=== PATIENT | male | born 1965 | race Caucasian/White ===

== ENCOUNTER 2021-10-06 10:14 | Inpatient (IN) ==
[2021-10-06] MEDS ORDERED: ONDANSETRON INJ 2 MG/ML 2 ML VIAL IV STA (10:40)
[2021-10-06] MEDS ORDERED: SODIUM CHLORIDE 0.9% 1000ML 1,000 ML IV ONE ×2 (10:40→11:45)
--- NOTE | 2021-10-06 10:51 | Emergency Department Note ---
Impression & Plan Esophageal mass, Hypokalemia, Acute dehydration, Vomiting, Abnormal weight loss, Tobacco use ED Provider Note NAME: JERRY BENAVIDEZ AGE: 56 SEX: M : 1965 ARRIVES VIA: Walk-In INFORMANT: Patient, ED PROVIDER(S): Tobias Purcell DO CHIEF COMPLAINT: Weight loss and weakness HPI: The patient is a 56-year-old male who presented to the emergency department for an evaluation of generalized weakness. The patient states over the last 2 months he has been noticing significant weight loss which includes over 100 pounds. The patient states he has not been trying to lose weight. He has noticed that when he tries to eat he does have nausea vomiting. He has been trying to eat small meals more frequently and it is helped with his nausea but he continues to lose weight. He denies having any lower extremity swelling or p ain. He denies having any black or bloody bowel moods. He denies having any abdominal pain at this time. He states he does have a long tobacco history and has noticed a cough but denies having any hemoptysis. He denies having any fever. He does not have a family doctor and has not seen a primary physician in many years. ROS: See above HPI for pertinent positives & negatives. A total of 10 systems reviewed and were otherwise negative. PAST MEDICAL HISTORY: See Below PAST SURGICAL HISTORY: See Below FAMILY HISTORY: See Below SOCIAL HISTORY: See Below HOME MEDICATIONS: See Below ALLERGIES: See Below VITALS: See Below PHYSICAL EXAMINATION: GENERAL: The patient is awake and alert. He is very frail appearing and appears cachectic. EYES: The conjunctivae are clear. The pupils are round and reactive. EARS, NOSE, MOUTH AND THROAT: The nose is without any evidence of any deformity. Mucous membranes are dry. There is thrush noted in his oropharynx. Dentition is poor. NECK: The neck is nontender and supple. RESPIRATORY: Diminished breath sounds are noted bilaterally with wheezing in the left upper lung field. There is diminished breath sounds at the right base as well. CARDIOVASCULAR: Regular rate and rhythm noted there no murmurs rubs or gallops normal S1 normal S2. GASTROINTESTINAL: The abdomen is soft. Abdomen is nontender. MUSCULOSKELETAL/EXTREMITIES: There is no evidence of gross deformity full range of motion is noted in the hips and shoulders. SKIN: There is no obvious evidence of any rash. There are no petechiae, pallor or cyanosis noted. NEUROLOGIC: Patient is awake alert and oriented x3 strength is symmetric patellar reflexes are absent bilaterally MEDICAL DECISION MAKING: The patient is a 56-year-old male who presented to the emergency department for an evaluation of dehydration and decreased p.o. intake. The patient has a long tobacco history. He does not have a primary care physician. He presented to the emergency department today because of ongoing and worsening symptoms including weight loss. Given the patient's presentation I thought it was highly likely the patient would have an underlying malignancy. He has not been eating or drinking. Initial chest x-ray did not show any acute disease so further work-up was undertaken including CT chest abdomen pelvis. There appears to be a very dilated esophagus with tapering distally. This could be consistent with a mass versus a primary esophageal tumor versus stricture. I discussed the patient's condition with the on-call [facility] hospitalist group. I also discussed his case with gastroenterology. The patient will likely require further inpatient work-up to determine the underlying cause. Triage Nursing notes reviewed. Prior medical records reviewed Vital Signs: reviewed and remarkable for hypotension and bradycardia. Differential diagnosis: Infection, dehydration, metabolic abnormality, hypo/hyperglycemia, electrolyte disturbance, anemia, hypoxia, cardiac sources, intracerebral event, toxicologic, neurologic, as well as other pathologies. ER treatment provided: See below Diagnostics interpreted by me: ECG: EKG was obtained in the emergency department. My interpretation is sinus tachycardia 103 bpm. There is no ectopy. LVH was suggested by voltage criteria. No previous tracing was available. Cardiac Monitoring: An order was placed for continuous cardiac monitoring. The monitor shows a rate of 56 bpm with sinus bradycardia Laboratory studies: As stated above and show below. Imaging studies: See below Consultation(s): I discussed this case with Elizabeth who is on-call for the [facility] hospitalist group. I discussed this case with Dr Wilkins who is on-call for gastroenterology. Past Med/Surg History Medical History (Updated 10/07/21 @ 06:19 by Tobias Purcell DO) Tobacco abuse Surgical History No pertinent past surgical history Family History Mother , 55 [place] Myocardial infarction Diabetes Father , 77 -[place]+ Myocardial infarction Diabetes Brother , [place] - 50s Myocardial infarction Brother No problems noted. Social History Smoking Status: Unknown if ever smoked Tobacco Type: Cigarettes packs per day: 1; Years Smoked: 43; Second Hand Exposure: No; Do You Dip or Chew Tobacco: No; Tobacco Cessation Education Requested by Patient: No Hx Alcohol Use: Yes Alcohol type: hard liquor Alcohol type Comment: Holidays only Hx Substance Use: No Preferred Language: Mac[place] Communication Ability: Effective Band Builder Required: No Beliefs That Will Affect Care: None marital status: Single Current Living Situation: Family Current Living Situation Comment: Lives with Brother Other Information That Helps Us Care for You: No Feels Safe at Home: Yes Safety Concerns: Feels Safe At This Time Assistive Devices: None Allergies Allergies Allergy/AdvReac Type Severity Reaction Status Date / Time No Known Allergies Allergy Unverified 10/06/21 13:52 Results & Data (ED) Vital Signs Vital Signs - 24 hr 10/06/21 10:19 10/06/21 10:44 10/06/21 10:40 Temperature 36.3 C L Temperature Source Oral Pulse Rate 84 Pulse Rate [Apical] 83 Pulse Rate from SpO2 Sensor Pulse Rhythm Regular Pulse Strength Normal Respiratory Rate 20 20 Respiratory Effort / Characteristics Non-Labored Spontaneous Non-Labored Spontaneous Respiratory Depth Normal Normal Respiratory Pattern Regular Blood Pressure 101/67 Blood Pressure [Left Arm] 107/83 Blood Pressure Mean 78 Blood Pressure Mean [Left Arm] 91 Pulse Oximetry 99 97 99 Oxygen Delivery Method Room Air Room Air Room Air Sepsis Recent Fever Within 48 Hours No Sepsis New/Unexplained Change in Mental Status No Sepsis Action Taken by Nursing No Action Required 10/06/21 10:57 10/06/21 11:00 10/06/21 11:30 Temperature Temperature Source Pulse Rate 84 83 79 Pulse Rate [Apical] Pulse Rate from SpO2 Sensor 84 83 79 Pulse Rhythm Pulse Strength Respiratory Rate 20 21 19 Respiratory Effort / Characteristics Respiratory Depth Respiratory Pattern Blood Pressure Blood Pressure [Left Arm] Blood Pressure Mean Blood Pressure Mean [Left Arm] Pulse Oximetry 98 98 98 Oxygen Delivery Method Sepsis Recent Fever Within 48 Hours Sepsis New/Unexplained Change in Mental Status Sepsis Action Taken by Nursing 10/06/21 12:00 10/06/21 12:30 10/06/21 13:40 Temperature Temperature Source Pulse Rate 82 58 L Pulse Rate [Apical] Pulse Rate from SpO2 Sensor 83 59 L Pulse Rhythm Pulse Strength Respiratory Rate 14 26 H 9 L Respiratory Effort / Characteristics Respiratory Depth Respiratory Pattern Blood Pressure Blood Pressure [Left Arm] Blood Pressure Mean Blood Pressure Mean [Left Arm] Pulse Oximetry 98 99 Oxygen Delivery Method Sepsis Recent Fever Within 48 Hours Sepsis New/Unexplained Change in Mental Status Sepsis Action Taken by [facility] Medications Current Medication List: was personally reviewed by me Laboratory Data Attestation: I reviewed the patient's lab results. Result diagrams: 10/06/21 10:31 10/06/21 19:06 Lab Results 10/06/21 10/06/21 10/06/21 Range/Units 10:31 10:31 10:31 WBC 23.41 H (4.8-10.8) K/ul RBC 5.72 (4.63-6.08) M/uL Hgb 17.0 (14.0-18.0) g/dl Hct 48.3 (40.1-51.0) % MCV 84.4 (80.0-100.0) fL MCH 29.7 (25.0-34.0) pg MCHC 35.2 (32.0-36.0) g/dL RDW Std Deviation 44.1 (36.4-46.3) fL RDW Coeff of Marcelo 14.6 H (11.5-14.5) % Plt Count 407 H (130-400) K/uL MPV 11.4 (9.4-12.4) fL Immature Gran % (Auto) 0.7 % Neut % (Auto) 85.1 % Lymph % (Auto) 7.9 % [place] % (Auto) 6.1 % Eos % (Auto) 0.0 % Baso % (Auto) 0.2 % Neut # (Auto) 19.91 H (1.4-6.5) K/uL Lymph # (Auto) 1.86 (1.2-3.4) K/uL [place] # (Auto) 1.42 H (0.24-0.82) K/uL Eos # (Auto) 0.00 (0-0.50) K/uL Baso # (Auto) 0.05 (0-0.2) K/uL Immature Gran # (Auto) 0.17 H (0.00-0.02) K/uL PT 12.0 (9.0-12.0) Seconds INR 1.1 (0.9-1.1) APTT 27.8 (21.0-31.0) Seconds PTT Ratio 1.0 Sodium 135 L (136-145) mmol/L Potassium 3.1 L (3.5-5.1) mmol/L Chloride 92 L (98-107) mmol/L Carbon Dioxide 28 (21-32) mmol/L Anion Gap 15 H (3-11) BUN 50 H (6-23) mg/dl Creatinine 1.16 (0.6-1.4) mg/dl Est Cr Clr Drug Dosing 60.4 ml/min Est GFR ( Amer) 81.7 ml/min Est GFR (Non-Af Amer) 70.5 ml/min BUN/Creatinine Ratio 43.1 H (10-20) Glucose 161 H (70-99(Fasting)) mg/dl Lactate (0.4-2.0) mmol/L Calcium 10.0 (8.5-10.1) mg/dl Magnesium 2.1 (1.7-2.4) mg/dl Total Bilirubin 1.4 H (0.2-1.0) mg/dl AST 28 (13-39) U/L ALT 21 (7-52) U/L Alkaline Phosphatase 103 (34-104) U/L Total Creatine Kinase 35 (30-223) U/L Troponin I High Sens 8.4 (0-20) pg/ml Total Protein 8.2 (6.0-8.3) gm/dl Albumin 4.2 (3.4-5.0) gm/dl Globulin 4.0 (2.5-4.0) gm/dl Albumin/Globulin Ratio 1.1 (0.9-2) Procalcitonin (0-0.5) ng/ml TSH (0.300-4.500) uIu/ml SARS-CoV-2, RNA, NAAT (NEGATIVE) 10/06/21 10/06/21 10/06/21 Range/Units 10:31 10:31 12:19 WBC (4.8-10.8) K/ul RBC (4.63-6.08) M/uL Hgb (14.0-18.0) g/dl Hct (40.1-51.0) % MCV (80.0-100.0) fL MCH (25.0-34.0) pg MCHC (32.0-36.0) g/dL RDW Std Deviation (36.4-46.3) fL RDW Coeff of Marcelo (11.5-14.5) % Plt Count (130-400) K/uL MPV (9.4-12.4) fL Immature Gran % (Auto) % Neut % (Auto) % Lymph % (Auto) % [place] % (Auto) % Eos % (Auto) % Baso % (Auto) % Neut # (Auto) (1.4-6.5) K/uL Lymph # (Auto) (1.2-3.4) K/uL [place] # (Auto) (0.24-0.82) K/uL Eos # (Auto) (0-0.50) K/uL Baso # (Auto) (0-0.2) K/uL Immature Gran # (Auto) (0.00-0.02) K/uL PT (9.0-12.0) Seconds INR (0.9-1.1) APTT (21.0-31.0) Seconds PTT Ratio Sodium (136-145) mmol/L Potassium (3.5-5.1) mmol/L Chloride (98-107) mmol/L Carbon Dioxide (21-32) mmol/L Anion Gap (3-11) BUN (6-23) mg/dl Creatinine (0.6-1.4) mg/dl Est Cr Clr Drug Dosing ml/min Est GFR ( Amer) ml/min Est GFR (Non-Af Amer) ml/min BUN/Creatinine Ratio (10-20) Glucose (70-99(Fasting)) mg/dl Lactate 1.2 (0.4-2.0) mmol/L Calcium (8.5-10.1) mg/dl Magnesium (1.7-2.4) mg/dl Total Bilirubin (0.2-1.0) mg/dl AST (13-39) U/L ALT (7-52) U/L Alkaline Phosphatase (34-104) U/L Total Creatine Kinase (30-223) U/L Troponin I High Sens (0-20) pg/ml Total Protein (6.0-8.3) gm/dl Albumin (3.4-5.0) gm/dl Globulin (2.5-4.0) gm/dl Albumin/Globulin Ratio (0.9-2) Procalcitonin 0.17 (0-0.5) ng/ml TSH 0.844 (0.300-4.500) uIu/ml SARS-CoV-2, RNA, NAAT (NEGATIVE) 10/06/21 Range/Units 12:19 WBC (4.8-10.8) K/ul RBC (4.63-6.08) M/uL Hgb (14.0-18.0) g/dl Hct (40.1-51.0) % MCV (80.0-100.0) fL MCH (25.0-34.0) pg MCHC (32.0-36.0) g/dL RDW Std Deviation (36.4-46.3) fL RDW Coeff of Marcelo (11.5-14.5) % Plt Count (130-400) K/uL MPV (9.4-12.4) fL Immature Gran % (Auto) % Neut % (Auto) % Lymph % (Auto) % [place] % (Auto) % Eos % (Auto) % Baso % (Auto) % Neut # (Auto) (1.4-6.5) K/uL Lymph # (Auto) (1.2-3.4) K/uL [place] # (Auto) (0.24-0.82) K/uL Eos # (Auto) (0-0.50) K/uL Baso # (Auto) (0-0.2) K/uL Immature Gran # (Auto) (0.00-0.02) K/uL PT (9.0-12.0) Seconds INR (0.9-1.1) APTT (21.0-31.0) Seconds PTT Ratio Sodium (136-145) mmol/L Potassium (3.5-5.1) mmol/L Chloride (98-107) mmol/L Carbon Dioxide (21-32) mmol/L Anion Gap (3-11) BUN (6-23) mg/dl Creatinine (0.6-1.4) mg/dl Est Cr Clr Drug Dosing ml/min Est GFR ( Amer) ml/min Est GFR (Non-Af Amer) ml/min BUN/Creatinine Ratio (10-20) Glucose (70-99(Fasting)) mg/dl Lactate (0.4-2.0) mmol/L Calcium (8.5-10.1) mg/dl Magnesium (1.7-2.4) mg/dl Total Bilirubin (0.2-1.0) mg/dl AST (13-39) U/L ALT (7-52) U/L Alkaline Phosphatase (34-104) U/L Total Creatine Kinase (30-223) U/L Troponin I High Sens (0-20) pg/ml Total Protein (6.0-8.3) gm/dl Albumin (3.4-5.0) gm/dl Globulin (2.5-4.0) gm/dl Albumin/Globulin Ratio (0.9-2) Procalcitonin (0-0.5) ng/ml TSH (0.300-4.500) uIu/ml SARS-CoV-2, RNA, NAAT NEGATIVE (NEGATIVE) Administered Medications Potassium Chloride/Sodium Chloride (Normal Saline W/20 Meq Kcl) 20 meq in 1,000 mls @ 80 mls/hr IV .[id number] CORAL; Protocol Stop: 11/05/21 15:34 Last Admin: 10/06/21 16:34 Dose: 80 mls/hr Documented By: BIN Lactated Ringer's (Lr) 1,000 mls @ 80 mls/hr IV .[id number] CORAL Stop: 11/06/21 01:29 Last Admin: 10/07/21 02:22 Dose: 80 mls/hr Documented By: ROCIO Nicotine (Nicotine 14 Mg/24 Hr Patch) 14 mg TD QAM CORAL Stop: 11/05/21 15:34 Last Admin: 10/06/21 16:34 Dose: 14 mg Documented By: BIN Nystatin (Nystatin Susp 500,000 U/5 Ml Udc) 5 ml PO QID CORAL Stop: 10/16/21 16:59 Last Admin: 10/06/21 19:51 Dose: 5 ml Documented By: Admin: 10/06/21 17:46 Dose: 5 ml Documented By: BT Discontinued Medications Sodium Chloride (Nss 1000ml) 1,000 mls @ 999 mls/hr IV .Q1H1M ONE Stop: 10/06/21 11:40 Last Infusion: 10/06/21 12:21 Dose: 0 mls/hr Documented By: Admin: 10/06/21 10:46 Dose: 999 mls/hr Documented By: Sodium Chloride (Nss 1000ml) 1,000 mls @ 999 mls/hr IV .Q1H1M ONE Stop: 10/06/21 12:45 Last Infusion: 10/06/21 14:41 Dose: 0 mls/hr Documented By: Admin: 10/06/21 12:21 Dose: 999 mls/hr Documented By: KRISTYN Potassium Chloride (K Ezio / Wtr) 10 meq in 100 mls @ 100 mls/hr IV ONE ONE; Protocol Stop: 10/06/21 12:44 Last Infusion: 10/06/21 14:08 Dose: 0 mls/hr Documented By: Admin: 10/06/21 12:20 Dose: 100 mls/hr Documented By: KRISTYN Piperacillin Sod/Tazobactam Sod (Zosyn) 4.5 gm in 120 mls @ 240 mls/hr IV NOW ONE Stop: 10/06/21 13:45 Last Infusion: 10/06/21 14:41 Dose: 0 mls/hr Documented By: Admin: 10/06/21 14:05 Dose: 240 mls/hr Documented By: KRISTYN Thiamine HCl 100 mg/ Syringe 10 mls @ 2 mls/min IV NOW STA Stop: 10/06/21 15:18 Last Admin: 10/06/21 16:00 Dose: 2 mls/min Documented By: BIN Potassium Chloride (K Ezio / Wtr) 10 meq in 100 mls @ 100 mls/hr IV Q1H CORAL; Protocol Stop: 10/07/21 05:29 Last Admin: 10/07/21 05:50 Dose: 100 mls/hr Documented By: Infusion: 10/07/21 05:50 Dose: 100 mls/hr Documented By: Admin: 10/07/21 04:50 Dose: 100 mls/hr Documented By: Infusion: 10/07/21 04:41 Dose: 100 mls/hr Documented By: Admin: 10/07/21 03:41 Dose: 100 mls/hr Documented By: Infusion: 10/07/21 03:29 Dose: 100 mls/hr Documented By: Admin: 10/07/21 02:29 Dose: 100 mls/hr Documented By: ROCIO Ioversol (Optiray 300 500ml) 120 ml IV ONCE ONE Stop: 10/06/21 12:43 Last Admin: 10/06/21 12:43 Dose: 120 ml Documented By: LORETTA Ondansetron HCl (Ondansetron Inj 2 Mg/Ml 2 Ml Vial) 4 mg IV NOW STA Stop: 10/06/21 10:41 Last Admin: 10/06/21 12:21 Dose: Not Given Documented By: KRISTYN Potassium Chloride (Potassium Chloride Crtab 20 Meq Tabcr) 20 meq PO NOW STA Stop: 10/06/21 11:46 Last Admin: 10/06/21 12:21 Dose: 20 meq Documented By: KRISTYN Imaging Data Radiologist's Impression: Chest X-Ray 10/06/21 10:40 SINGLE VIEW CHEST CLINICAL HISTORY: Generalized weakness. Weight loss. FINDINGS: An AP, portable, upright chest radiograph is obtained. No prior studies are available for comparison at the time of dictation. The cardiomediastinal silhouette is unremarkable noting atherosclerotic calcification of the thoracic aorta. The lungs and pleural spaces are clear. No pneumothorax is seen. The bony thorax is grossly intact. IMPRESSION: No active disease in the chest. ACT 112: Negative or not required by law. Electronically signed by: Jose Antonio Cabello M.D. 10/06/2021 10:57 AM Abdomen/Pelvis CT 10/06/21 11:27 CT SCAN OF THE ABDOMEN AND PELVIS WITH IV CONTRAST CLINICAL HISTORY: Vomiting. Weight loss. COMPARISON STUDY: No priors. TECHNIQUE: Following the IV administration of 120 cc of Optiray 300, CT scan of the abdomen and pelvis is performed from the lung bases to the proximal femora. Images are reviewed in the axial, sagittal, and coronal planes. IV contrast was administered without complication. A dose lowering technique was utilized adhering to the principles of ALARA. FINDINGS: Lung bases: The heart is normal in size and without pericardial effusion. The coronary arteries are densely calcified. There are minimal groundglass opacities in the right middle lobe and lingula. Scarring/atelectasis is seen in the lung bases. No pleural effusion is identified. The distal esophagus is distended and filled with fluid and calcified debris. There is wall thickening of the distal esophagus. This focally narrows at the gastroesophageal junction. Liver: The contrast-enhanced liver is top normal in size and demonstrates diffusely diminished attenuation indicating severe steatosis. Fatty sparing is seen adjacent to the gallbladder fossa. There is no intrahepatic biliary ductal dilatation. The hepatic veins and portal veins are patent. Gallbladder: Unremarkable. Spleen: Normal in size and attenuation. There are calcified splenic granulomas. Pancreas: Mildly atrophic and grossly unremarkable. Adrenal glands: Unremarkable. Kidneys: The contrast enhanced kidneys are normal in size and without hydronephrosis. The kidneys enhance symmetrically. Abdominal vasculature: The abdominal aorta is normal in course and caliber noting moderate atherosclerotic calcification. Bowel: There is moderate constipation. No bowel obstruction is seen. The appendix is well-visualized and normal. Peritoneum: There is no intraperitoneal free air or abdominal ascites. Lymphadenopathy: Mildly enlarged gastrohepatic lymph nodes measure up to 10 mm in short axis. Pelvic viscera: The prostate gland is enlarged and heterogeneous. The bladder wall appears thickened and trabeculated indicating chronic outlet obstruction. Skeletal structures: The skeletal structures appear osteopenic. There is mild lumbosacral spondylosis. No lytic or blastic lesions are seen. IMPRESSION: 1. The distal esophagus is thick-walled, significantly distended, and filled with fluid/debris. Note patent this may place the patient at risk for aspiration. 2. The esophagus focally narrows at the gastroesophageal junction. This could be related to stricture or achalasia. Underlying mass lesion would be impossible to exclude. Correlation with endoscopy is recommended for further assessment. 3. Mildly enlarged gastrohepatic nodes are nonspecific and may be reactive. 4. Severe hepatic steatosis. 5. Moderate constipation. 6. Minimal patchy groundglass opacities are seen in the right middle lobe and lingula. Correlate clinically for evidence of aspiration. 7. Advanced coronary artery calcification. ACT 112: Negative or not required by law. Electronically signed by: Jose Antonio Cabello M.D. 10/06/2021 1:00 PM Chest CTA 10/06/21 11:27 CT angio chest PE protocol CLINICAL HISTORY: PE TECHNIQUE: Multidetector row helical CT of the chest was performed with angiographic protocol. Coronal and sagittal reformations were obtained. Coronal and sagittal MIPS were obtained from the axial data set and were submitted for review. Automated dose lowering techniques and/or adjustment according to patient size were utilized for this exam. CT DOSE: 586.06 mGy.cm Comparison: Comparison is made to chest radiograph 10/06/2021 FINDINGS: Lungs and pleura: Diffuse centrilobular emphysema is seen most prominent in the upper lobes. Scattered groundglass opacities are noted in the right greater than left upper lobe. Intraparenchymal lymph nodes are noted in the fissures. No suspicious pulmonary nodules are seen. Heart and pericardium: Heart size is normal. No pericardial effusion. Vessels: No evidence of pulmonary embolism. Mediastinum and kary: Patulous and thickened esophagus is noted with layering liquid contents. No mediastinal lymphadenopathy is seen. Chest wall and lower neck: Subcentimeter thyroid nodules are noted which do not require follow-up by ACR criteria. Abdomen: For findings below the diaphragm, please refer to CT of the abdomen dated the same. Bones: Degenerative changes in the thoracic spine. IMPRESSION: 1. No evidence of pulmonary embolism. 2. Ground glass opacities most prominent in the right greater than left upper lobe. This may represent infectious/inflammatory process. Follow-up to resolution is recommended. 3. Esophageal dilation and patulous appearance is noted. Clinical correlation is recommended as this appearance can be seen in achalasia and scleroderma. 4. Emphysema. No suspicious pulmonary nodules. ACT 112: Negative or not required by law. Electronically signed by: Nathanael Hilton M.D. 10/06/2021 1:11 PM Discharge Plan Visit Data Chief Complaint: Illness Stated Complaint: NOT EATING, WEIGHT LOSS, VOMITING ED Provider: Tobias Purcell ED Midlevel Provider: Yael Shine Discharge Problem: Esophageal mass, Hypokalemia, Acute dehydration, Vomiting, Abnormal weight loss, Tobacco use Patient Disposition: Admitted As Inpatient Discharge Instructions Interventions: ED Discharge Assessment Last Done: 10/06/21 14:40
--- NOTE | 2021-10-06 10:58 | XRay Report ---
SINGLE VIEW CHEST CLINICAL HISTORY: Generalized weakness. Weight loss. FINDINGS: An AP, portable, upright chest radiograph is obtained. No prior studies are available for c omparison at the time of dictation. The cardiomediastinal silhouette is unremarkable noting atheroscl erotic calcification of the thoracic aorta. The lungs and pleural spaces are clear. No pneumothorax i s seen. The bony thorax is grossly intact. IMPRESSION: No active disease in the chest. ACT 112: Negative or not required by law. Electronically signed by: Jose Antonio Cabello M.D. 10/06/2021 10:57 AM
[2021-10-06 11:01] LABS: Basophils # (auto) 0.05 K/uL (0-0.2); Basophils % (auto) 0.2 %; Hematocrit (blood only) 48.3 % (40.1-51.0); Immature Granulocytes # (auto) 0.17 K/uL (0.00-0.02); Immature Granulocytes % (auto) 0.7 %; Lymphocytes # (auto) 1.86 K/uL (1.2-3.4); Lymphocytes % (auto) 7.9 %; Mean Corpuscular Hemoglobin 29.7 pg (25.0-34.0); Mean Corpuscular Hgb Conc 35.2 g/dL (32.0-36.0); Mean Corpuscular Volume 84.4 fL (80.0-100.0); Mean Platelet Volume 11.4 fL (9.4-12.4); Monocytes # (auto) 1.42 K/uL (0.24-0.82); Monocytes % (auto) 6.1 %; Neutrophils # (auto) 19.91 K/uL (1.4-6.5); Neutrophils % (auto) 85.1 %; Platelet Count 407 K/uL (130-400); RDW Coefficient of Variation 14.6 % (11.5-14.5); RDW Standard Deviation 44.1 fL (36.4-46.3); Red Blood Count 5.72 M/uL (4.63-6.08); White Blood Count 23.41 K/ul (4.8-10.8)
[2021-10-06 11:26] LABS: Albumin Globulin Ratio 1.1 (0.9-2); Albumin Level 4.2 gm/dl (3.4-5.0); BUN Creatinine Ratio 43.1 (10-20); Bilirubin,Total 1.4 mg/dl (0.2-1.0); Creatinine Clr Calc Pharmacy 60.4 ml/min; Est GFR (African American) 81.7 ml/min; Est GFR (Non-African American) 70.5 ml/min; Magnesium 2.1 mg/dl (1.7-2.4); Potassium 3.1 mmol/L (3.5-5.1); Total Protein 8.2 gm/dl (6.0-8.3); Troponin I High Sensitivity 8.4 pg/ml (0-20)
[2021-10-06 11:27] LABS: INR 1.1 (0.9-1.1); Partial Thromboplastin Time 27.8 Seconds (21.0-31.0)
[2021-10-06] MEDS ORDERED: POTASSIUM CHLORIDE / WTR 10 MEQ/100 ML PLCT IV ONE (11:45)
[2021-10-06] MEDS ORDERED: POTASSIUM CHLORIDE CRTAB 20 MEQ TABCR PO STA (11:45)
[2021-10-06] MEDS ORDERED: OPTIRAY 300 500mL IV ONE (12:42)
--- NOTE | 2021-10-06 13:02 | CT Scan Report ---
CT SCAN OF THE ABDOMEN AND PELVIS WITH IV CONTRAST CLINICAL HISTORY: Vomiting. Weight loss. COMPARISON STUDY: No priors. TECHNIQUE: Following the IV administration of 120 cc of Optiray 300, CT scan of the abdomen and pelv is is performed from the lung bases to the proximal femora. Images are reviewed in the axial, sagitta l, and coronal planes. IV contrast was administered without complication. A dose lowering technique w as utilized adhering to the principles of ALARA. FINDINGS: Lung bases: The heart is normal in size and without pericardial effusion. The coronary arteries are d ensely calcified. There are minimal groundglass opacities in the right middle lobe and lingula. Scarr ing/atelectasis is seen in the lung bases. No pleural effusion is identified. The distal esophagus is distended and filled with fluid and calcified debris. There is wall thickening of the distal esophag us. This focally narrows at the gastroesophageal junction. Liver: The contrast-enhanced liver is top normal in size and demonstrates diffusely diminished attenu ation indicating severe steatosis. Fatty sparing is seen adjacent to the gallbladder fossa. There is no intrahepatic biliary ductal dilatation. The hepatic veins and portal veins are patent. Gallbladder: Unremarkable. Spleen: Normal in size and attenuation. There are calcified splenic granulomas. Pancreas: Mildly atrophic and grossly unremarkable. Adrenal glands: Unremarkable. Kidneys: The contrast enhanced kidneys are normal in size and without hydronephrosis. The kidneys enh ance symmetrically. Abdominal vasculature: The abdominal aorta is normal in course and caliber noting moderate atheroscle rotic calcification. Bowel: There is moderate constipation. No bowel obstruction is seen. The appendix is well-visualized and normal. Peritoneum: There is no intraperitoneal free air or abdominal ascites. Lymphadenopathy: Mildly enlarged gastrohepatic lymph nodes measure up to 10 mm in short axis. Pelvic viscera: The prostate gland is enlarged and heterogeneous. The bladder wall appears thickened and trabeculated indicating chronic outlet obstruction. Skeletal structures: The skeletal structures appear osteopenic. There is mild lumbosacral spondylosis . No lytic or blastic lesions are seen. IMPRESSION: 1. The distal esophagus is thick-walled, significantly distended, and filled with fluid/debris. Note patent this may place the patient at risk for aspiration. 2. The esophagus focally narrows at the gastroesophageal junction. This could be related to stricture or achalasia. Underlying mass lesion would be impossible to exclude. Correlation with endoscopy is r ecommended for further assessment. 3. Mildly enlarged gastrohepatic nodes are nonspecific and may be reactive. 4. Severe hepatic steatosis. 5. Moderate constipation. 6. Minimal patchy groundglass opacities are seen in the right middle lobe and lingula. Correlate clin ically for evidence of aspiration. 7. Advanced coronary artery calcification. ACT 112: Negative or not required by law. Electronically signed by: Jose Antonio Cabello M.D. 10/06/2021 1:00 PM
--- NOTE | 2021-10-06 13:13 | CT Scan Report ---
CT angio chest PE protocol CLINICAL HISTORY: PE TECHNIQUE: Multidetector row helical CT of the chest was performed with angiographic protocol. Villaseñor l and sagittal reformations were obtained. Coronal and sagittal MIPS were obtained from the axial danielle a set and were submitted for review. Automated dose lowering techniques and/or adjustment according to patient size were utilized for this exam. CT DOSE: 586.06 mGy.cm Comparison: Comparison is made to chest radiograph 10/06/2021 FINDINGS: Lungs and pleura: Diffuse centrilobular emphysema is seen most prominent in the upper lobes. Scattere d groundglass opacities are noted in the right greater than left upper lobe. Intraparenchymal lymph n odes are noted in the fissures. No suspicious pulmonary nodules are seen. Heart and pericardium: Heart size is normal. No pericardial effusion. Vessels: No evidence of pulmonary embolism. Mediastinum and kary: Patulous and thickened esophagus is noted with layering liquid contents. No med iastinal lymphadenopathy is seen. Chest wall and lower neck: Subcentimeter thyroid nodules are noted which do not require follow-up by ACR criteria. Abdomen: For findings below the diaphragm, please refer to CT of the abdomen dated the same. Bones: Degenerative changes in the thoracic spine. IMPRESSION: 1. No evidence of pulmonary embolism. 2. Ground glass opacities most prominent in the right greater than left upper lobe. This may represe nt infectious/inflammatory process. Follow-up to resolution is recommended. 3. Esophageal dilation and patulous appearance is noted. Clinical correlation is recommended as this appearance can be seen in achalasia and scleroderma. 4. Emphysema. No suspicious pulmonary nodules. ACT 112: Negative or not required by law. Electronically signed by: Nathanael Hilton M.D. 10/06/2021 1:11 PM
[2021-10-06] MEDS ORDERED: PIPERACILLIN/TAZOBACTAM 4.5 GM/120 ML BAG IV ONE (13:16)
--- NOTE | 2021-10-06 14:32 | History & Physical Report ---
Date of Service October 06, 2021 Assessment & Plan (1) Esophageal dysphagia: (2) Weight loss: (3) Nausea and vomiting: (4) Abnormal CT scan, esophagus: (5) Hypokalemia: (6) Acute dehydration: (7) Leukocytosis: (8) Severe protein-calorie malnutrition: (9) Oropharyngeal candidiasis: (10) Tobacco abuse: Plan This is a 56-year-old male who has significant past medical history for tobacco abuse who presents to ER secondary to weight loss, nausea and vomiting for the past 3 to 6 months. Cachectic, barrel chested 56 year old male who presents after not seeing medical providers since 1979. He has approx 100lb weight loss with inability to swallow. CTA chest with findings of esophageal dilation with patulous appearance Concern for Esophageal malignancy, achalasia, autoimmune disease Weight Loss Difficulty Swallowing Nausea and vomiting with solids/liquids Dilated fluid filled esophagus admit to med tele consult GI Plan for EGD tomorrow Keep NPO IVF x 20meq KCL, continue IVF until NPO lifted asp precautions screen for HIV, Hep C Verbal consent to be obtained by Dr. Ma IV thiamine added due to poor nutrition Acute Dehydration pre renal with elevated BUN in setting of lack of poor intake and vomiting continue IVF with KCl 20meq monitor bmp repeat bmp, mag at 1900 Hypokalemia replete Leukocytosis wbc 23k, no significant sign of infection he does not meet SIRS criteria blood and urine culture ordered, check procal received IV zosyn in ED, will continue for now until infection ruled out possible reactive in setting of underlying situation chest CT concerning for RUL ground glass opacities, ? chronic aspiration Elevated bilirubin no abd pain hepatic steatosis on CT repeat LFT IN am Hyperglycemia bsg on admission 161 obtain a1c in a.m. will check bsgs ac/hs for now, no coverage added unless persistently hyperglycemic Tobacco abuse encourage cessation nicotine patch ordered DVT ppx: SCDS, re evaluate post EGD findings, if not suspicious for malignancy would add chemical prophylaxis PCP: none Dispo: med tele, can transfer to med/surg when electrolytes stable FULL CODE Pt was seen and examined in collaboration with Dr. Ma, please see addendum History of Present Illness Chief Complaint: weight loss, n/v x 3-6 months. Primary Care Provider: NO PCP This is a 56-year-old male who has significant past medical history for tobacco abuse who presents to ER secondary to weight loss, nausea and vomiting for the past 3 to 6 months. Patient has been a tobacco abuser since the . He smokes roughly 1 pack/day. He also has not seen a medical provider since the as well. He lives at home with his brother and is currently employed. His brother and boss forced him to come to ER today due to patient having significant weight loss and inability to eat. Initially patient states he has had weight loss of approximately 100 pounds and difficulty swallowing for the past 2 months. After further questioning it does appear this been ongoing for at least 3 to 6 months. According to brother at one point patient weighed over 230 pounds. He is currently approximately 130. Patient states overall decreased appetite. When he does eat or drink he tends to vomit it back up. He states occasionally it is undigested food and occasionally it is liquid vomit. He states this happens intermittently and not with every meal. He denies any recent fever, chills, sweats, lightheadedness, syncope, chest pain, shortness of breath, URI symptoms, hematemesis, melena, hematochezia, dysuria, increased urgency or frequency with urination, hematuria. He does get dizzy when he goes from sitting to standing but never passed out. He has not had any routine cancer screenings including PSA or colonoscopy. No FH of cancer that pt is aware of. Both mother and father from [place]. Brother at bedside states father would have to get esophagus dilated, but unsure of reason. Also had a brother of [place] in his 50s. He denies significant alcohol use or drug use. Allergies Allergy/AdvReac Type Severity Reaction Status Date / Time No Known Allergies Allergy Unverified 10/06/21 13:52 Past Med/Surg History Medical History (Updated 10/06/21 @ 16:12 by Emma Ma DO) Tobacco abuse Surgical History No pertinent past surgical history Family History Mother , 55 [place] Myocardial infarction Diabetes Father , 77 -[place]+ Myocardial infarction Diabetes Brother , [place] - 50s Myocardial infarction Brother No problems noted. Social History Smoking Status: Current every day smoker Tobacco Type: Cigarettes packs per day: 1; Years Smoked: 43; Hx Alcohol Use: Yes Alcohol type: hard liquor Alcohol type Comment: Holidays only Hx Substance Use: No Preferred Language: Mauritanian marital status: Single Current Living Situation: Family Current Living Situation Comment: Lives with Brother Feels Safe at Home: Yes Review of Systems Review of Systems: All systems reviewed & are unremarkable except as noted in HPI & below Physical Exam Physical Exam: Constitutional: Unkempt, malnourished male, cachectic with barrel chest, vitals as above, NAD, sitting up in bed, pleasant, conversing easily Head: Normocephalic, Atraumatic Eyes: PERRL, conjunctivae normal, anicteric sclerae, exophthalmos ENMT: external ear and nose normal, oropharynx normal very dry mucous membranes, poor dentition Neck: trachea midline, no thyromegaly normal visual inspection Respiratory: normal respiratory effort, lungs clear to auscultation, no wheeze, rales, rhonchi. Normal insp/exp effort, no accessory muscle use Cardiovascular: RRR, no murmur, no edema Vessels: no JVD or carotid bruit Chest: normal inspection of chest Abdomen: normal bowel sounds, soft, nontender, no hepatosplenomegaly Musculoskeletal: no cyanosis or clubbing, extremities motor strength 5/5 Skin: no rashes, warm and dry normal turgor Neurologic: PERRL, EOMI, accommodation nl, no face palsy, no dysarthria CN's II-XI intact bilaterally and moves all extremities Psychiatric: A+Ox3, euthymic affect Lymphatic: no cervical or axillary lymphadenopathy : deferred Results & Data Results & Data ([facility]) Vital Signs (Past 12 Hours) Vital Signs Temp Pulse Pulse Resp BP BP Pulse Ox 10/06/21 12:00 82 14 98 10/06/21 11:30 79 19 98 10/06/21 11:00 83 21 98 10/06/21 10:57 84 20 98 10/06/21 10:40 99 10/06/21 10:44 83 20 107/83 97 10/06/21 10:19 36.3 C L 84 20 101/67 99 O2 Del Method 10/06/21 12:00 10/06/21 11:30 10/06/21 11:00 10/06/21 10:57 10/06/21 10:40 Room Air 10/06/21 10:44 Room Air 10/06/21 10:19 Room Air Laboratory Results Short CBC 10/06/21 Range/Units 10:31 WBC 23.41 H (4.8-10.8) K/ul Hgb 17.0 (14.0-18.0) g/dl Hct 48.3 (40.1-51.0) % Plt Count 407 H (130-400) K/uL BMP 10/06/21 10:31 Sodium 135 L Potassium 3.1 L Chloride 92 L Carbon Dioxide 28 BUN 50 H Creatinine 1.16 Glucose 161 H Calcium 10.0 Cardiac Enzymes 10/06/21 Range/Units 10:31 Total Creatine Kinase 35 (30-223) U/L Liver Function 10/06/21 Range/Units 10:31 Total Bilirubin 1.4 H (0.2-1.0) mg/dl AST 28 (13-39) U/L ALT 21 (7-52) U/L Alkaline Phosphatase 103 (34-104) U/L Albumin 4.2 (3.4-5.0) gm/dl Diagnostic Findings Chest X-Ray 10/06/21 10:40 SINGLE VIEW CHEST CLINICAL HISTORY: Generalized weakness. Weight loss. FINDINGS: An AP, portable, upright chest radiograph is obtained. No prior studies are available for comparison at the time of dictation. The cardiomediastinal silhouette is unremarkable noting atherosclerotic calcification of the thoracic aorta. The lungs and pleural spaces are clear. No pneumothorax is seen. The bony thorax is grossly intact. IMPRESSION: No active disease in the chest. ACT 112: Negative or not required by law. Electronically signed by: Jose Antonio Cabello M.D. 10/06/2021 10:57 AM Abdomen/Pelvis CT 10/06/21 11:27 CT SCAN OF THE ABDOMEN AND PELVIS WITH IV CONTRAST CLINICAL HISTORY: Vomiting. Weight loss. COMPARISON STUDY: No priors. TECHNIQUE: Following the IV administration of 120 cc of Optiray 300, CT scan of the abdomen and pelvis is performed from the lung bases to the proximal femora. Images are reviewed in the axial, sagittal, and coronal planes. IV contrast was administered without complication. A dose lowering technique was utilized adhering to the principles of ALARA. FINDINGS: Lung bases: The heart is normal in size and without pericardial effusion. The coronary arteries are densely calcified. There are minimal groundglass opacities in the right middle lobe and lingula. Scarring/atelectasis is seen in the lung bases. No pleural effusion is identified. The distal esophagus is distended and filled with fluid and calcified debris. There is wall thickening of the distal esophagus. This focally narrows at the gastroesophageal junction. Liver: The contrast-enhanced liver is top normal in size and demonstrates diffusely diminished attenuation indicating severe steatosis. Fatty sparing is seen adjacent to the gallbladder fossa. There is no intrahepatic biliary ductal dilatation. The hepatic veins and portal veins are patent. Gallbladder: Unremarkable. Spleen: Normal in size and attenuation. There are calcified splenic granulomas. Pancreas: Mildly atrophic and grossly unremarkable. Adrenal glands: Unremarkable. Kidneys: The contrast enhanced kidneys are normal in size and without hydronephrosis. The kidneys enhance symmetrically. Abdominal vasculature: The abdominal aorta is normal in course and caliber noting moderate atherosclerotic calcification. Bowel: There is moderate constipation. No bowel obstruction is seen. The appendix is well-visualized and normal. Peritoneum: There is no intraperitoneal free air or abdominal ascites. Lymphadenopathy: Mildly enlarged gastrohepatic lymph nodes measure up to 10 mm in short axis. Pelvic viscera: The prostate gland is enlarged and heterogeneous. The bladder wall appears thickened and trabeculated indicating chronic outlet obstruction. Skeletal structures: The skeletal structures appear osteopenic. There is mild lumbosacral spondylosis. No lytic or blastic lesions are seen. IMPRESSION: 1. The distal esophagus is thick-walled, significantly distended, and filled with fluid/debris. Note patent this may place the patient at risk for aspiration. 2. The esophagus focally narrows at the gastroesophageal junction. This could be related to stricture or achalasia. Underlying mass lesion would be impossible to exclude. Correlation with endoscopy is recommended for further assessment. 3. Mildly enlarged gastrohepatic nodes are nonspecific and may be reactive. 4. Severe hepatic steatosis. 5. Moderate constipation. 6. Minimal patchy groundglass opacities are seen in the right middle lobe and lingula. Correlate clinically for evidence of aspiration. 7. Advanced coronary artery calcification. ACT 112: Negative or not required by law. Electronically signed by: Jose Antonio Cabello M.D. 10/06/2021 1:00 PM Chest CTA 10/06/21 11:27 CT angio chest PE protocol CLINICAL HISTORY: PE TECHNIQUE: Multidetector row helical CT of the chest was performed with angiographic protocol. Coronal and sagittal reformations were obtained. Coronal and sagittal MIPS were obtained from the axial data set and were submitted for review. Automated dose lowering techniques and/or adjustment according to patient size were utilized for this exam. CT DOSE: 586.06 mGy.cm Comparison: Comparison is made to chest radiograph 10/06/2021 FINDINGS: Lungs and pleura: Diffuse centrilobular emphysema is seen most prominent in the upper lobes. Scattered ground glass opacities are noted in the right greater than left upper lobe. Intraparenchymal lymph nodes are noted in the fissures. No suspicious pulmonary nodules are seen. Heart and pericardium: Heart size is normal. No pericardial effusion. Vessels: No evidence of pulmonary embolism. Mediastinum and kary: Patulous and thickened esophagus is noted with layering liquid contents. No mediastinal lymphadenopathy is seen. Chest wall and lower neck: Subcentimeter thyroid nodules are noted which do not require follow-up by ACR criteria. Abdomen: For findings below the diaphragm, please refer to CT of the abdomen dated the same. Bones: Degenerative changes in the thoracic spine. IMPRESSION: 1. No evidence of pulmonary embolism. 2. Ground glass opacities most prominent in the right greater than left upper lobe. This may represent infectious/inflammatory process. Follow-up to resolution is recommended. 3. Esophageal dilation and patulous appearance is noted. Clinical correlation is recommended as this appearance can be seen in achalasia and scleroderma. 4. Emphysema. No suspicious pulmonary nodules. ACT 112: Negative or not required by law. Electronically signed by: Nathanael Hilton M.D. 10/06/2021 1:11 PM Medications Administered Medication List Discontinued Medications Sodium Chloride (Nss 1000ml) 1,000 mls @ 999 mls/hr IV .Q1H1M ONE Stop: 10/06/21 11:40 Last Infusion: 10/06/21 12:21 Dose: 0 mls/hr Documented By: Admin: 10/06/21 10:46 Dose: 999 mls/hr Documented By: Sodium Chloride (Nss 1000ml) 1,000 mls @ 999 mls/hr IV .Q1H1M ONE Stop: 10/06/21 12:45 Last Admin: 10/06/21 12:21 Dose: 999 mls/hr Documented By: KRISTYN Potassium Chloride (K Ezio / Wtr) 10 meq in 100 mls @ 100 mls/hr IV ONE ONE; Protocol Stop: 10/06/21 12:44 Last Infusion: 10/06/21 14:08 Dose: 0 mls/hr Documented By: Admin: 10/06/21 12:20 Dose: 100 mls/hr Documented By: KRISTYN Piperacillin Sod/Tazobactam Sod (Zosyn) 4.5 gm in 120 mls @ 240 mls/hr IV NOW ONE Stop: 10/06/21 13:45 Last Admin: 10/06/21 14:05 Dose: 240 mls/hr Documented By: KRISTYN Ioversol (Optiray 300 500ml) 120 ml IV ONCE ONE Stop: 10/06/21 12:43 Last Admin: 10/06/21 12:43 Dose: 120 ml Documented By: LORETTA Ondansetron HCl (Ondansetron Inj 2 Mg/Ml 2 Ml Vial) 4 mg IV NOW STA Stop: 10/06/21 10:41 Last Admin: 10/06/21 12:21 Dose: Not Given Documented By: KRISTYN Potassium Chloride (Potassium Chloride Crtab 20 Meq Tabcr) 20 meq PO NOW STA Stop: 10/06/21 11:46 Last Admin: 10/06/21 12:21 Dose: 20 meq Documented By: KRISTYN ECG Rate (beats per minute): 103 Rhythm: normal sinus COVID-19 Results Results COVID-19 Adm Lab Results: RBC 5.72 M/uL (4.63-6.08) 10/06/21 WBC 23.41 K/ul (4.8-10.8) H 10/06/21 Hgb 17.0 g/dl (14.0-18.0) 10/06/21 Hct 48.3 % (40.1-51.0) 10/06/21 Plt Count 407 K/uL (130-400) H 10/06/21 Neutrophils (%) (Auto) 85.1 % 10/06/21 Lymphocytes (%) (Auto) 7.9 % 10/06/21 Monocytes # (Auto) 1.42 K/uL (0.24-0.82) H 10/06/21 Eosinophils # (Auto) 0.00 K/uL (0-0.50) 10/06/21 Immature Granulocyte % (Auto) 0.7 % 10/06/21 Neutrophils # (Auto) 19.91 K/uL (1.4-6.5) H 10/06/21 Lymphocytes # (Auto) 1.86 K/uL (1.2-3.4) 10/06/21 Monocytes # (Auto) 1.42 K/uL (0.24-0.82) H 10/06/21 Eosinophils # (Auto) 0.00 K/uL (0-0.50) 10/06/21 Basophils # (Auto) 0.05 K/uL (0-0.2) 10/06/21 Immature Granulocyte # (Auto) 0.17 K/uL (0.00-0.02) H 10/06 Na 135 mmol/L (136-145) L 10/06/21 K 3.1 mmol/L (3.5-5.1) L 10/06/21 Cl 92 mmol/L (98-107) L 10/06/21 CO2 28 mmol/L (21-32) 10/06/21 Anion Gap 15 (3-11) H 10/06/21 BUN 50 mg/dl (6-23) H 10/06/21 Creatinine 1.16 mg/dl (0.6-1.4) 10/06/21 BUN/Creatinine Ratio 43.1 (10-20) H 10/06/21 Glucose Level 161 mg/dl (70-99(Fasting)) H 10/06/21 Ca 10.0 mg/dl (8.5-10.1) 10/06/21 Phosphorus Level Pending 10/06/21 Total Bilirubin 1.4 mg/dl (0.2-1.0) H 10/06/21 AST/SGOT 28 U/L (13-39) 10/06/21 ALT/SGPT 21 U/L (7-52) 10/06/21 Alkaline Phosphatase 103 U/L (34-104) 10/06/21 Total Protein 8.2 gm/dl (6.0-8.3) 10/06/21 Albumin 4.2 gm/dl (3.4-5.0) 10/06/21 Globulin 4.0 gm/dl (2.5-4.0) 10/06/21 Albumin/Globulin Ratio 1.1 (0.9-2) 10/06/21 Total CK 35 U/L (30-223) 10/06/21 Procalcitonin 0.17 ng/ml (0-0.5) 10/06/21 PTT 27.8 Seconds (21.0-31.0) 10/06/21 INR 1.1 (0.9-1.1) 10/06/21 SARS-CoV-2, RNA, NAAT NEGATIVE (NEGATIVE) 10/06/21 Chest X-Ray 10/06/21 Code Status & VTE Plan Code Status FULL CODE VTE Prophylaxis Plan VTE Prophylaxis will be ordered: Yes Supervising Physician Co-Signing Physician Notes I have seen and examined the patient and have discussed the case with the provider above. I agree with the assessment and plan as stated. Please see supplemental communication note. sms
--- NOTE | 2021-10-06 15:06 | Communication Note ---
Date of Service: October 06, 2021 ATTENDING ATTESTATION: 56-year-old man with significant weight loss over the past few months presents for inability to swallow and keep food down. He is a chronic smoker and has not ever seen a doctor as an adult. He works in [employer]. He has very poor dentition with thick whitish plaque like substances all over his mouth and missing teeth. He admits to brushing his teeth "once in a while." He denies any abdominal pain, chest pain, shortness of breath. He denies any fevers chills or cough. He denies any bowel movement changes, blood per rectum or vomiting blood. He has dysphagia to both solids and liquids. His last meal was a quarter pounder yesterday and he was able to keep down only part of it. He consents to an HIV and hepatitis C screening. We discussed the results of the CT more in detail and the esophageal findings. We discussed the plan for possible endoscopy this admission pending GI recommendations. Leukocytosis present is likely reactive and not indicative of infection. Urine has not been collected. Chest x-ray with no rafat pneumonia. Procalcitonin is pending but patient is not experiencing symptoms of pneumonia. Aspiration is possible especially given poor dentition and Susie in his mouth. His brother is a diabetic and has gastroparesis. Diabetes runs in his family and an A1c is pending. Low normal sodium and hypokalemia and hypochloremia, and elevated BUN to creatinine ratio with creatinine 1.16 are all suggestive of dehydration from poor p.o. intake. He is hemodynamically stable. Despite minimal food intake patient's glucose is 161. Bilirubin slightly elevated at 1.4 with no comparable baseline. LFTs are normal and alk phos is normal. CK and highly sensitive troponin are normal. TSH is normal and COVID serology is negative. And EKG reveals sinus tachycardia with a heart rate of 103 and no evidence of acute ischemia. There is a clear for concern for malignancy in this malnourished smoker with significant weight loss and esophageal dilation with dysphagia to solids and liquids. This was discussed with the patient and his brother and he verbalized understanding. EGD likely this admission and will continue efforts to rehydrate. High risk for refeeding syndrome. Baseline phos level now and adding thiamine. Repeat BMP frequently along with Mg and Phos to ensure lauren quate repletion. DO Herman Cheung Hospitalist
[2021-10-06] MEDS ORDERED: THIAMINE HCL 100 MG in SYRINGE 9 ML IV STA (15:14)
--- NOTE | 2021-10-06 15:29 | Gastrointestinal Consultation ---
Date of Consultation October 06, 2021 Assessment & Plan (1) Esophageal dysphagia: (2) Abnormal CT scan, esophagus: r/o esophageal tumor and acalasia Plan Keep NPO. Will plan for EGD tomorrow in the OR. Further recommendations to follow endoscopy. Supervising Physician Co-Signing Physician Notes Attg add: I interviewed and examined pt, reviewed chart and labs. Pt with dysphagia, weight loss. Imaging shows esophagus dilation. Suspect achalasia, pseudoachalasia - EGD tomorrow. History of Present Illness Reason for Consultation: Weight loss, unable to swallow ? achalasia vs mass Requesting Physician: Elizabeth Suarez PA-C Attending Physician: Emma Ma DO History of Present Illness Mr. Harvinder Corey is a 56 yr old male pt w/o a PCP, w/o recent medical care who presented to the ED today for dysphagia, Weight loss both present for about 2 months. He actually denies nausea and describes regurgitation of foods soon after eating/drinking. This is typically just solids, bringing up a portion of what he recently swallowed. He denies any abdominal pain or pain on swallowing. He is able to keep liquids down if he continually sips but if he drinks a full glass of liquid it comes back up. He believes that he has lost about 100lbs in the past few months but doesn't really weigh himself. He is a 1/2 pack/day smoker for many years. No cough/CP excessive bleeding/bruising. No blood in the emesis. 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 He has felt a bit weak. CT on arrival with a dilated food/fluid filled esophagus w narrowing at the GE junction, leukocytosis is present (WBC 23), Hb is 17.LFTs are normal. BUN is elevated at 50, but cr is normal at 1.16. He is hypokalemic at 3.1. Lactate is normal. Allergies Allergy/AdvReac Type Severity Reaction Status Date / Time No Known Allergies Allergy Unverified 10/06/21 13:52 Patient History Medical History (Updated 10/06/21 @ 16:12 by Emma Ma DO) Tobacco abuse Surgical History No pertinent past surgical history Family History Mother , 55 [place] Myocardial infarction Diabetes Father , 77 -[place]+ Myocardial infarction Diabetes Brother , [place] - 50s Myocardial infarction Brother No problems noted. Social History Smoking Status: Unknown if ever smoked Tobacco Type: Cigarettes packs per day: 1; Years Smoked: 43; Second Hand Exposure: No; Do You Dip or Chew Tobacco: No; Tobacco Cessation Education Requested by Patient: No Hx Alcohol Use: Yes Alcohol type: hard liquor Alcohol type Comment: Holidays only Hx Substance Use: No Preferred Language: Nigerien Communication Ability: Effective Games Dealer Required: No Beliefs That Will Affect Care: None marital status: Single Current Living Situation: Family Current Living Situation Comment: Lives with Brother Other Information That Helps Us Care for You: No Feels Safe at Home: Yes Safety Concerns: Feels Safe At This Time Assistive Devices: None Review of Systems Review of Systems: ROS: Gen: + weakness, + weight loss Eyes: No eye redness, or pain, no recent vision changes Resp: No SOB, no cough Cardio: No palpitations/irregular beats, no chest pain GI: + regurgitation of foods/liquids after swallowing, see HPI. No abdominal pain : Denies pain on urination Skin: No jaundice, itching or new rashes Physical Exam Constitutional: well developed, + thin, cooperative and comfortable Eyes: PERRL, conjunctivae normal, anicteric sclerae ENMT: poor dentition; pharynx normal Neck: trachea midline, no thyromegaly Respiratory: normal respiratory effort, lungs clear to auscultation Barrel chest appearance; quiet lung sounds but no adventitius lung sounds Cardiovascular: RRR, no murmur, no edema Gastrointestinal (Abdomen): normal bowel sounds, soft, nontender, no hepat osplenomegaly Musculoskeletal: no cyanosis or clubbing, extremities motor strength 5/5 Skin: no rashes, warm and dry Neurologic: PERRL, EOMI, accommodation nl, no face palsy, no dysarthria Psychiatric: A+Ox3, euthymic affect Lymphatic: no cervical or axillary lymphadenopathy Results & Data ([facility]) Vital Signs (Past 12 Hours) Vital Signs Temp Pulse Pulse Resp BP BP Pulse Ox 10/06/21 14:05 56 L 20 98 10/06/21 14:05 109/58 L 10/06/21 14:00 59 L 25 H 99 10/06/21 13:40 9 L 10/06/21 12:30 58 L 26 H 99 10/06/21 12:00 82 14 98 10/06/21 11:30 79 19 98 10/06/21 11:00 83 21 98 10/06/21 10:57 84 20 98 10/06/21 10:40 99 10/06/21 10:44 83 20 107/83 97 10/06/21 10:19 36.3 C L 84 20 101/67 99 O2 Del Method 10/06/21 14:05 10/06/21 14:05 10/06/21 14:00 10/06/21 13:40 10/06/21 12:30 10/06/21 12:00 10/06/21 11:30 10/06/21 11:00 10/06/21 10:57 10/06/21 10:40 Room Air 10/06/21 10:44 Room Air 10/06/21 10:19 Room Air Laboratory Results WBC 23.4, Hb 17, Hct 48, Plts 407, PT 12, INR 1.1, Na 135, K 3.1, Cl 92, CO2 28, BUn 50, Cr 1.16. Diagnostic Findings CTAP w IV contrast 10/06/21: 1. The distal esophagus is thick-walled, significantly distended, and filled with fluid/debris. Note patent this may place the patient at risk for aspiration. 2. The esophagus focally narrows at the gastroesophageal junction. This could be related to stricture or achalasia. Underlying mass lesion would be impossible to exclude. Correlation with endoscopy is recommended for further assessment. 3. Mildly enlarged gastrohepatic nodes are nonspecific and may be reactive. 4. Severe hepatic steatosis. 5. Moderate constipation. 6. Minimal patchy groundglass opacities are seen in the right middle lobe and lingula. Correlate clinically for evidence of aspiration. 7. Advanced coronary artery calcification. Chest CTA 10/06/21: 1. No evidence of pulmonary embolism. 2. Ground glass opacities most prominent in the right greater than left upper lobe. This may represent infectious/inflammatory process. Follow-up to resolution is recommended. 3. Esophageal dilation and patulous appearance is noted. Clinical correlation is recommended as this appearance can be seen in achalasia and scleroderma. 4. Emphysema. No suspicious pulmonary nodules.
[2021-10-06] MEDS ORDERED: GLUCAGON FOR INJ 1 MG VIAL SQ PRN (15:35)
[2021-10-06] MEDS ORDERED: DEXTROSE 50% 50 ML SYRINGE IV PRN (15:35)
[2021-10-06] MEDS ORDERED: GLUCOSE 40% GEL 15 GM TUBE PO PRN (15:35)
[2021-10-06] MEDS ORDERED: GLUCOSE 10 TAB/TUBE PO PRN (15:35)
[2021-10-06] MEDS ORDERED: ONDANSETRON INJ 2 MG/ML 2 ML VIAL IV PRN (15:35)
[2021-10-06] MEDS: NSS + 20MEQ KCL 20 MEQ/1,000 ML BAG IV SCH (16:34)
[2021-10-06] MEDS: NICOTINE 14 MG/24 HR PATCH TD SCH (16:34)
[2021-10-06] MEDS: NYSTATIN SUSP 500,000 U/5 ML UDC PO SCH ×2 (17:46→19:51)
[2021-10-06 19:41] LABS: BUN Creatinine Ratio 44.6 (10-20); Calcium 9.1 mg/dl (8.5-10.1); Creatinine Clr Calc Pharmacy 76.1 ml/min; Est GFR (African American) 108.1 ml/min; Est GFR (Non-African American) 93.3 ml/min; Magnesium 2.1 mg/dl (1.7-2.4)
[2021-10-07 01:02] LABS: Appearance Urine Clear (Clear); Bilirubin Urine Negative (Negative); Blood Urine Trace (Negative); Color Urine Dark Yellow; Glucose Urine UA Negative (Negative); Ketones Urine Trace (Negative); Nitrite Urine Negative (Negative); Protein Urine Trace (Negative); RBC Urine Automated 0-4 /hpf (0-4); Specific Gravity Urine > 1.045 (1.000-1.030); Urobilinogen Urine Negative (Negative); pH Urine 5.5 (4.5-7.5)
[2021-10-07 01:03] LABS: Leukocyte Esterase Urine Negative (Negative)
[2021-10-07 01:14] LABS: Bacteria Urine Automated 1+ (Negative)
[2021-10-07] MEDS: LACTATED RINGER'S 1,000 ML IV SCH ×3 (02:22→17:02)
[2021-10-07] MEDS: POTASSIUM CHLORIDE / WTR 10 MEQ/100 ML PLCT IV SCH ×7 (02:29→12:54)
--- NOTE | 2021-10-07 06:12 | Electrocardiogram Report ---
Test Reason : Blood Pressure : / mmHG Vent. Rate : 103 BPM Atrial Rate : 103 BPM P-R Int : 144 ms QRS Dur : 090 ms QT Int : 348 ms P-R-T Axes : 080 -06 036 degrees QTc Int : 455 ms Poor data quality, interpretation may be adversely affected Sinus tachycardia Possible Left atrial enlargement Nonspecific ST abnormality No previous ECGs available Confirmed by Melecio Grady ([id number]) on 10/07/2021 6:11:36 AM Referred By: Confirmed By:Melecio Grady
[2021-10-07 06:29] LABS: Basophils # (auto) 0.07 K/uL (0-0.2); Basophils % (auto) 0.4 %; Eosinophils # (auto) 0.05 K/uL (0-0.50); Eosinophils % (auto) 0.3 %; Hematocrit (blood only) 41.4 % (40.1-51.0); Hemoglobin 14.1 g/dl (14.0-18.0); Immature Granulocytes # (auto) 0.09 K/uL (0.00-0.02); Immature Granulocytes % (auto) 0.5 %; Lymphocytes # (auto) 3.28 K/uL (1.2-3.4); Lymphocytes % (auto) 17.9 %; Mean Corpuscular Hemoglobin 30.1 pg (25.0-34.0); Mean Corpuscular Hgb Conc 34.1 g/dL (32.0-36.0); Mean Corpuscular Volume 88.5 fL (80.0-100.0); Mean Platelet Volume 11.2 fL (9.4-12.4); Monocytes % (auto) 7.7 %; Neutrophils # (auto) 13.39 K/uL (1.4-6.5); Neutrophils % (auto) 73.2 %; Platelet Count 297 K/uL (130-400); RDW Coefficient of Variation 14.6 % (11.5-14.5); RDW Standard Deviation 47.4 fL (36.4-46.3); Red Blood Count 4.68 M/uL (4.63-6.08); White Blood Count 18.28 K/ul (4.8-10.8)
[2021-10-07 06:56] LABS: Albumin Globulin Ratio 1.1 (0.9-2); Albumin Level 3.5 gm/dl (3.4-5.0); Bilirubin,Total 1.1 mg/dl (0.2-1.0); Creatinine Clr Calc Pharmacy 84.3 ml/min; Est GFR (African American) 114.8 ml/min; Est GFR (Non-African American) 99.1 ml/min; Globulin 3.1 gm/dl (2.5-4.0); Potassium 3.3 mmol/L (3.5-5.1); Total Protein 6.6 gm/dl (6.0-8.3)
[2021-10-07 07:33] LABS: Estimated Average Glucose 120 mg/dl; Hemoglobin A1C 5.8 % (4.5-5.6)
[2021-10-07] MEDS: NICOTINE 14 MG/24 HR PATCH TD SCH (07:39)
[2021-10-07] MEDS: THIAMINE HCL 100 MG in SYRINGE 9 ML IV SCH (07:39)
[2021-10-07] MEDS: NYSTATIN SUSP 500,000 U/5 ML UDC PO SCH ×5 (07:39→20:18)
--- NOTE | 2021-10-07 09:13 | Anesthesiology Consultation ---
Date of Service October 07, 2021 Assessment & Plan (1) Encounter for pre-operative examination: Chart Review Chart Review: Acceptable Risk for Surgery and Patient NOT seen in Pre Admission Testing Consults Requested none History Surgery Operation Date: 10/07/21 08:15 Proposed Procedures p Esophagogastroduodenoscopy - Sona Dc MD Height/Weight Height: 5 ft 10 in Weight: 60.9 kg Allergies Allergy/AdvReac Type Severity Reaction Status Date / Time No Known Allergies Allergy Unverified 10/06/21 13:52 Medications Active Medications Generic Name Dose Route Start Last Admin Trade Name Freq PRN Reason Stop Dose Admin Thiamine HCl 100 mg/ Syringe 10 mls @ 2 mls/min 10/07/21 09:00 10/07/21 07:39 IV 11/06/21 08:59 2 mls/min QAM CORAL Administration Potassium Chloride/Sodium Chloride 20 meq in 1,000 mls @ 80 mls/hr 10/06/21 15:35 10/07/21 07:03 Normal Saline W/20 Meq Kcl IV 11/05/21 15:34 Infused .[id number] CORAL Infusion Protocol Lactated Ringer's 1,000 mls @ 80 mls/hr 10/07/21 01:30 10/07/21 02:22 Lr IV 11/06/21 01:29 80 mls/hr .[id number] CORAL Administration Miscellaneous 1 each 10/07/21 08:59 10/07/21 07:39 Remove Nicoderm Patch N/A 11/06/21 08:58 1 each [id number] CORAL Administration Nicotine 14 mg 10/06/21 15:35 10/07/21 07:39 Nicotine 14 Mg/24 Hr Patch TD 11/05/21 15:34 14 mg QAM CORAL Administration Nystatin 5 ml 10/06/21 17:00 10/07/21 07:39 Nystatin Susp 500,000 U/5 Ml Udc PO 10/16/21 16:59 5 ml QID CORAL Administration Past Medical History Medical History Tobacco abuse Past Family History Family History Mother , 55 [place] Myocardial infarction Diabetes Father , 77 -[place]+ Myocardial infarction Diabetes Brother , [place] - 50s Myocardial infarction Brother No problems noted. Past Surgical History Surgical History No pertinent past surgical history Social History Smoking Status: Unknown if ever smoked Do You Dip or Chew Tobacco: No Hx Alcohol Use: Yes Alcohol type: hard liquor alcohol intake frequency: holidays/special occasions only Hx Substance Use: No Physical Exam Vital Signs Last Vital Signs Temp 97.7 F 10/07/21 06:40 Pulse 78 10/07/21 06:40 Resp 20 10/07/21 06:40 BP 111/64 10/07/21 06:40 Pulse Ox 97 10/07/21 06:40 O2 Del Method 10/07/21 06:40 Testing Laboratory Results 10/07/21 05:36 10/07/21 05:36 PT 12.0 Seconds (9.0-12.0) 10/06/21 10:31 INR 1.1 (0.9-1.1) 10/06/21 10:31 APTT 27.8 Seconds (21.0-31.0) 10/06/21 10:31 Hemoglobin A1c 5.8 % (4.5-5.6) H 10/07/21 05:36 Urine Color Dark Yellow 10/06/21 23:48 Urine Appearance Clear (Clear) 10/06/21 23:48 Urine pH 5.5 (4.5-7.5) 10/06/21 23:48 Ur Specific [place] > 1.045 (1.000-1.030) H 10/06/21 23:48 Urine Protein Trace (Negative) H 10/06/21 23:48 Urine Glucose (UA) Negative (Negative) 10/06/21 23:48 Urine Ketones Trace (Negative) H 10/06/21 23:48 Urine Nitrite Negative (Negative) 10/06/21 23:48 Ur Leukocyte Esterase Negative (Negative) 10/06/21 23:48 Urine WBC (Auto) 10-30 /hpf (0-5) H 10/06/21 23:48 Urine RBC (Auto) 0-4 /hpf (0-4) 10/06/21 23:48 U Hyaline Cast (Auto) 1-5 /lpf (0-5) 10/06/21 23:48 U Epithel Cells (Auto) 10-20 /lpf (0-5) H 10/06/21 23:48 Urine Bacteria (Auto) 1+ (Negative) H 10/06/21 23:48 Electrocardiogram Date: 10/06/21 Findings: + NSR @ (103)
[2021-10-07] MEDS ORDERED: PROPOFOL IV EMULSION 10 MG/ML 20 ML VIAL IV ONE (09:25)
[2021-10-07] MEDS ORDERED: SUCCINYLCHOLINE CHLORIDE 20 MG/ML 10 ML VIAL IV ONE (09:25)
[2021-10-07] MEDS ORDERED: MIDAZOLAM HCL 1 MG/ML 2ML VIAL ONE (09:25)
[2021-10-07] MEDS ORDERED: fentaNYL citrate 100 MCG/2 ML VIAL ONE (09:25)
[2021-10-07] MEDS ORDERED: LIDOCAINE 2% MPF LOCAL 5 ML VIAL INFIL ONE (09:25)
--- NOTE | 2021-10-07 09:37 | History & Physical Bridge Note ---
Date of Service October 07, 2021 History & Physical Bridge Note I have examined the patient, reviewed the History & Physical and in the interval since the performance of the History & Physical I have noted the following changes of clinical significance: no changes noted
[2021-10-07] MEDS ORDERED: fentaNYL citrate 100 MCG/2 ML VIAL IV PRN (09:53)
[2021-10-07] MEDS ORDERED: ePHEDrine sulfate 50 MG/ML AMP IV PRN (09:53)
[2021-10-07] MEDS ORDERED: ATROPINE SULFATE 0.1 MG/ML 10ML SYR IV PRN (09:53)
--- NOTE | 2021-10-07 09:56 | Gastroenterology Progress Note ---
Date of Service October 07, 2021 Assessment & Plan (1) Esophageal dysphagia: (2) Abnormal CT scan, esophagus: Plan: r/o esophageal tumor and acalasia Plan EGD today. Further recommendations to follow endoscopy. Please keep n.p.o. EGD procedure was described in detail with the patient who would like to go forward with the procedure. Admission and Anticipated Discharge Date Admission Date: October 06, 2021 Subjective 56 yr old male, admitted yesterday with dysphagia, weight loss. Imaging with dilated esophagus. Review of Systems Review of Systems: ROS: Gen: + weakness, + weight loss Eyes: No eye redness, or pain, no recent vision changes Resp: No SOB, no cough Cardio: No palpitations/irregular beats, no chest pain GI: + regurgitation of foods/liquids after swallowing, see HPI. No abdominal pain : Denies pain on urination Skin: No jaundice, itching or new rashes Physical Exam Constitutional: well developed, + thin, cooperative and comfortable Eyes: PERRL, conjunctivae normal, anicteric sclerae Neck: trachea midline, no thyromegaly Respiratory: normal respiratory effort, lungs clear to auscultation Cardiovascular: RRR, no murmur, no edema Gastrointestinal (Abdomen): normal bowel sounds, soft, nontender, no hepatosplenomegaly Musculoskeletal: no cyanosis or clubbing, extremities motor strength 5/5 Skin: no rashes, warm and dry Neurologic: PERRL, EOMI, accommodation nl, no face palsy, no dysarthria Psychiatric: A+Ox3, euthymic affect Lymphatic: no cervical or axillary lymphadenopathy Results & Data ([facility]) Vital Signs (Past 12 Hours) Vital Signs Temp Pulse Pulse Resp BP Pulse Ox O2 Del Method 10/07/21 06:40 36.5 C 78 20 111/64 97 Room Air 10/06/21 22:25 54 L 10/07/21 04:24 36.4 C L 72 20 127/73 92 Room Air 10/06/21 23:56 36.6 C 76 20 102/57 L 92 Room Air Laboratory Results WBC yesterday 23 improved to 18 today, Hb 14, HCT 41, PLT S297, NA 140, K3.3, CL 101, CO2 32, BUN 34, CR 0.83, glucose 64. T bili 1.1, AST 20, ALT 17, alk phos 74 Diagnostic Findings CTAP w IV 8/29/22: 1. The distal esophagus is thick-walled, significantly distended, and filled with fluid/debris. Note patent this may place the patient at risk for aspiration. 2. The esophagus focally narrows at the gastroesophageal junction. This could be related to stricture or achalasia. Underlying mass lesion would be impossible to exclude. Correlation with endoscopy is recommended for further assessment. 3. Mildly enlarged gastrohepatic nodes are nonspecific and may be reactive. 4. Severe hepatic steatosis. 5. Moderate constipation. 6. Minimal patchy groundglass opacities are seen in the right middle lobe and lingula. Correlate clinically for evidence of aspiration. 7. Advanced coronary artery calcification. CT chest 10/06/21: No evidence of pulmonary embolism. 2. Ground glass opacities most prominent in the right greater than left upper lobe. This may represent infectious/inflammatory process. Follow-up to resolution is recommended. 3. Esophageal dilation and patulous appearance is noted. Clinical correlation is recommended as this appearance can be seen in achalasia and scleroderma. 4. Emphysema. No suspicious pulmonary nodules.
--- NOTE | 2021-10-07 10:12 | Anesthesiology Consultation ---
Date of Service October 07, 2021 Assessment & Plan Chart Review Chart Review: Acceptable Risk for Surgery and Patient NOT seen in Pre Admission Testing Consults Requested none History Surgery Operation Date: 10/07/21 08:15 Proposed Procedures p Esophagogastroduodenoscopy - Sona Dc MD Height/Weight Height: 5 ft 10 in Weight: 60.9 kg Allergies Allergy/AdvReac Type Severity Reaction Status Date / Time No Known Allergies Allergy Unverified 10/06/21 13:52 Medications Active Medications Generic Name Dose Route Start Last Admin Trade Name Freq PRN Reason Stop Dose Admin Thiamine HCl 100 mg/ Syringe 10 mls @ 2 mls/min 10/07/21 09:00 10/07/21 07:39 IV 11/06/21 08:59 2 mls/min QAM CORAL Administration Potassium Chloride/Sodium Chloride 20 meq in 1,000 mls @ 80 mls/hr 10/06/21 15:35 10/07/21 07:03 Normal Saline W/20 Meq Kcl IV 11/05/21 15:34 Infused .[id number] CORAL Infusion Protocol Lactated Ringer's 1,000 mls @ 80 mls/hr 10/07/21 01:30 10/07/21 02:22 Lr IV 11/06/21 01:29 80 mls/hr .[id number] CORAL Administration Potassium Chloride 10 meq in 100 mls @ 100 mls/hr 10/07/21 08:30 10/07/21 09:32 K Ezio / Wtr IV 10/07/21 11:29 100 mls/hr Q1H CORAL Administration Miscellaneous 1 each 10/07/21 08:59 10/07/21 07:39 Remove Nicoderm Patch N/A 11/06/21 08:58 1 each DAILY@0859 CORAL Administration Nicotine 14 mg 10/06/21 15:35 10/07/21 07:39 Nicotine 14 Mg/24 Hr Patch TD 11/05/21 15:34 14 mg QAM CORAL Administration Nystatin 5 ml 10/06/21 17:00 10/07/21 07:39 Nystatin Susp 500,000 U/5 Ml Udc PO 10/16/21 16:59 5 ml QID CORAL Administration NPO Date Last Intake of Fluids: 10/06/21 Time Last Intake of Fluids: 23:59 Date Last Intake of Solids: 10/06/21 Time Last Intake of Solids: 23:59 Past Medical History Medical History Tobacco abuse Past Family History Family History Mother , 55 [place] Myocardial infarction Diabetes Father , 77 -[place]+ Myocardial infarction Diabetes Brother , [place] - 50s Myocardial infarction Brother No problems noted. Past Surgical History Surgical History No pertinent past surgical history Social History Smoking Status: Unknown if ever smoked Do You Dip or Chew Tobacco: No Hx Alcohol Use: Yes Alcohol type: hard liquor alcohol intake frequency: holidays/special occasions only Hx Substance Use: No Physical Exam Vital Signs Last Vital Signs Temp 36.9 C 10/07/21 09:46 Pulse 43 L 10/07/21 09:46 Resp 18 10/07/21 09:46 BP 137/69 10/07/21 09:46 Pulse Ox 100 10/07/21 09:46 O2 Del Method 10/07/21 09:46 Testing Laboratory Results 10/07/21 05:36 10/07/21 05:36 PT 12.0 Seconds (9.0-12.0) 10/06/21 10:31 INR 1.1 (0.9-1.1) 10/06/21 10:31 APTT 27.8 Seconds (21.0-31.0) 10/06/21 10:31 Hemoglobin A1c 5.8 % (4.5-5.6) H 10/07/21 05:36 Urine Color Dark Yellow 10/06/21 23:48 Urine Appearance Clear (Clear) 10/06/21 23:48 Urine pH 5.5 (4.5-7.5) 10/06/21 23:48 Ur Specific [place] > 1.045 (1.000-1.030) H 10/06/21 23:48 Urine Protein Trace (Negative) H 10/06/21 23:48 Urine Glucose (UA) Negative (Negative) 10/06/21 23:48 Urine Ketones Trace (Negative) H 10/06/21 23:48 Urine Nitrite Negative (Negative) 10/06/21 23:48 Ur Leukocyte Esterase Negative (Negative) 10/06/21 23:48 Urine WBC (Auto) 10-30 /hpf (0-5) H 10/06/21 23:48 Urine RBC (Auto) 0-4 /hpf (0-4) 10/06/21 23:48 U Hyaline Cast (Auto) 1-5 /lpf (0-5) 10/06/21 23:48 U Epithel Cells (Auto) 10-20 /lpf (0-5) H 10/06/21 23:48 Urine Bacteria (Auto) 1+ (Negative) H 10/06/21 23:48 Electrocardiogram Date: 10/06/21 Findings: + NSR @ (103) Chest X-Ray Date: 10/06/21 Findings: + NAD
--- NOTE | 2021-10-07 11:30 | GI REPORT ---
Patient Name: Harvinder Corey Procedure Date: 10/07/2021 10:01 AM Date of : 1965 Admit Type: Inpatient Age: 56 Gender: Male Attending MD: Sona Dc MD Procedure: Upper GI endoscopy Providers: Sona Dc MD Referring MD: Danielle Peralta Md Indications: Dysphagia Medicines: General Anesthesia Complications: No immediate complications. Estimated Blood Loss: Estimated blood loss: none. Procedure: Pre-Anesthesia Assessment: - ASA Grade Assessment: III - A patient with severe systemic disease. After obtaining informed consent, the endoscope was passed under direct vision. Throughout the procedure, the patient's blood pressure, pulse, and oxygen saturations were monitored continuously. The Endoscope was introduced through the mouth, and advanced to the second part of duodenum. The upper GI endoscopy was accomplished without difficulty. The patient tolerated the procedure well. Findings: There was particulate food matter and liquid in the hypopharynx. The entire esophagus was encrusted with food, beginning at the UES and extending to the GE junction at 40 cm. Most of this food was pushed into the stomach using lavage and a cap. The esophagus was markedly dilated with markedly diminished peristalsis. The mucosa of the esophagus was mildly red and atrophic, but otherwise unremarkable. The GE junction was at 40 cm. The GEJ was snug to intubation. There was mild maycol-circumferential plaque like nodularity at the GE junction. This was visible both on forward view and extended into the cardia on retroflexion. This was soft to probing with a biopsy forceps. Although the pit pattern with NBI examination did appear advanced, this seems more likely a "sentinel fold;" I cannot rule out neoplasia. EMR was not done to avoid stricturing that might interfere with endoscopic achalasia therapy; biopsies of the nodule were done. The stomach and duodenum was normal. Impression: Exam suggestive of achalasia. Nodule at GEJ that may be inflammatory or neoplastic, biopsied. Recommendation: - Discharge patient to floor. Begin full liquids. Follow up pathology results. Manometry, other testing as outpt. Sona Dc M.D. Sona Dc MD 10/07/2021 11:29:55 AM This report has been signed electronically. Note Initiated On: 10/07/2021 10:01 AM Number of Addenda: 0 I attest to the content of the Intraoperative Record and orders documented therein, exceptions below {[id number]}
--- NOTE | 2021-10-07 13:09 | Anesthesiology Progress Note ---
Date of Service October 07, 2021 Anesthesia Post Procedure Vital Signs Vital Signs: Temp Pulse Pulse Pulse Resp BP BP 10/07/21 12:25 97.5 F L 47 L 16 116/73 10/07/21 12:10 97.3 F L 58 L 12 127/75 10/07/21 12:00 48 L 14 122/64 10/07/21 11:50 42 L 12 113/69 10/07/21 11:40 42 L 11 L 139/71 10/07/21 11:33 97.2 F L 39 L 10 L 157/69 H 10/07/21 09:46 98.4 F 43 L 18 137/69 10/07/21 06:40 97.7 F 78 20 111/64 10/06/21 22:25 54 L 10/07/21 04:24 97.5 F L 72 20 127/73 10/06/21 23:56 97.9 F 76 20 102/57 L 10/06/21 19:30 10/06/21 18:48 97.9 F 53 L 18 100/61 10/06/21 15:15 98.2 F 79 16 92/56 L 10/06/21 15:45 84 10/06/21 14:05 56 L 20 10/06/21 14:05 109/58 L 10/06/21 14:00 59 L 25 H 10/06/21 13:40 9 L Pulse Ox O2 Del Method O2 Flow Rate 10/07/21 12:25 100 Room Air 10/07/21 12:10 100 Room Air 10/07/21 12:00 100 Oxymask 4 10/07/21 11:50 100 Oxymask 4 10/07/21 11:40 100 Oxymask 4 10/07/21 11:33 100 Oxymask 10 10/07/21 09:46 100 Room Air 10/07/21 06:40 97 Room Air 10/06/21 22:25 10/07/21 04:24 92 Room Air 10/06/21 23:56 92 Room Air 10/06/21 19:30 Room Air 10/06/21 18:48 97 Room Air 10/06/21 15:15 98 10/06/21 15:45 10/06/21 14:05 98 10/06/21 14:05 10/06/21 14:00 99 10/06/21 13:40 Transfer of Care Handoff Completed per policy Notes Mental Status: alert / awake / arousable and participated in evaluation Patient Amnestic to Procedure: Yes Nausea / Vomiting: adequately controlled Pain: adequately controlled Airway Patency, RR, SpO2: stable & adequate BP & HR: stable & adequate Hydration State: stable & adequate Anesthetic Complications: no major complications apparent and Pt Satisfied with anesthetic care
[2021-10-07] MEDS: NSS + 20MEQ KCL 20 MEQ/1,000 ML BAG IV SCH (13:38)
--- NOTE | 2021-10-07 14:22 | Hospitalist Progress Note ---
Date of Service October 07, 2021 Assessment & Plan (1) Esophageal dysphagia: (2) Weight loss: (3) Nausea and vomiting: (4) Abnormal CT scan, esophagus: (5) Hypokalemia: (6) Acute dehydration: (7) Leukocytosis: (8) Severe protein-calorie malnutrition: (9) Oropharyngeal candidiasis: (10) Tobacco abuse: Plan This is a 56-year-old male who has significant past medical history for tobacco abuse who presents to ER secondary to weight loss, nausea and vomiting for the past 3 to 6 months. Protein calorie malnutrition Failure to thrive Cachectic, barrel chested 56 year old male who presents after not seeing medical providers since 1979. He has approx 100lb weight loss with inability to swallow since last 5 to 6 months per patient. Admitting CTA chest with findings of esophageal dilation with patulous appearance Concern for Esophageal malignancy, achalasia, autoimmune disease Dietitian consult. Weight Loss Difficulty Swallowing/Achalasia Nausea and vomiting with solids/liquids Dilated fluid filled esophagus Symptoms as above for last 5 to 6 months with inability to swallow both solids and liquids. GI on board, EGD scoped today, exam suggestive of achalasia and a nodule noted at the GEJ junction that might be inflammatory or neoplastic, biopsied, follow- up with biopsy results. Recommends outpatient manometric testing. Monitor and replete electrolytes closely. Aspiration precautions. Hepatitis C and HIV test pending. Continue with thiamine/folic acid/multivitamin. Continue with IV fluids. Patient cleared for full liquid diet. Advance diet as tolerated. Electrolyte abnormalities: Secondary to dietary imbalance/poor intake, monitor closely and replete as appropriate. Leukocytosis: Admitting WBC 23K, no signs/source of infection, admitting Pro-Ritchie negative, patient afebrile. Follow-up with admitting blood and urine culture. Monitor off antibiotic. possible reactive in setting of underlying situation Prediabetes: A1c this admission 5.8, advised lifestyle modification, close follow-up with PCP as an outpatient for ongoing management. Tobacco abuse: Encouraged cessation. Nicotine patch ordered. DVT ppx: Heparin subcu PCP: none Dispo: med tele, can transfer to med/surg when electrolytes stable FULL CODE Admission and Anticipated Discharge Date Admission Date: October 06, 2021 Subjective Patient seen and examined at bedside as a follow-up of dysphagia, weight loss, nausea and vomiting and electrolyte abnormalities and leukocytosis. Patient was sitting up in bed, on room air, NAD, denies any new acute events overnight. Patient n.p.o. at bedside exam for EGD scope today. Patient denies any fever/chills/sore throat/cough/chest pain/palpitation/belly pain/acute changes in his bowel or bladder habits. Physical Exam Physical Exam: GENERAL: Alert and oriented x3. NAD, on RA. Cachectic with barrel chest,?? Temporal wasting, loose skin folds especially on abdomen. HEENT: No pallor, no icterus. Pupils equal, round and reactive to light. Oral mucosa moist. Poor dentition, oral thrush. NECK: No JVD, no neck masses. HEART: S1 and S2 heard. Regular rate and rhythm. No murmur, no gallop. RESPIRATORY SYSTEM: Normal AP diameter. No accessory muscle use. No wheezing, no crackles. ABDOMEN: Soft, bowel sounds present, nontender, no distention. CENTRAL NERVOUS SYSTEM: No facial droop. Speech is clear. Obeys simple commands. Moves extremities. EXTREMITIES: No edema, no erythema seen. Results & Data Results & Data ([facility]) Vital Signs (Past 12 Hours) Vital Signs Temp Pulse Pulse Pulse Resp BP Pulse Ox 10/07/21 13:00 36.4 C L 49 L 16 121/71 100 10/07/21 12:25 36.4 C L 47 L 16 116/73 100 10/07/21 12:10 36.3 C L 58 L 12 127/75 100 10/07/21 12:00 48 L 14 122/64 100 10/07/21 11:50 42 L 12 113/69 100 10/07/21 11:40 42 L 11 L 139/71 100 10/07/21 11:33 36.2 C L 39 L 10 L 157/69 H 100 10/07/21 09:46 36.9 C 43 L 18 137/69 100 10/07/21 06:40 36.5 C 78 20 111/64 97 10/07/21 04:24 36.4 C L 72 20 127/73 92 O2 Del Method O2 Flow Rate 10/07/21 13:00 Room Air 10/07/21 12:25 Room Air 10/07/21 12:10 Room Air 10/07/21 12:00 Oxymask 4 10/07/21 11:50 Oxymask 4 10/07/21 11:40 Oxymask 4 10/07/21 11:33 Oxymask 10 10/07/21 09:46 Room Air 10/07/21 06:40 Room Air 10/07/21 04:24 Room Air
[2021-10-07 15:08] LABS: BUN Creatinine Ratio 41.1 (10-20); Calcium 9.1 mg/dl (8.5-10.1); Creatinine Clr Calc Pharmacy 98.5 ml/min; Est GFR (Non-African American) 104.4 ml/min; Potassium 4.3 mmol/L (3.5-5.1)
[2021-10-07] MEDS: MULTIVITAMIN TAB PO SCH (15:26)
[2021-10-07] MEDS: FOLIC ACID 1 MG TAB PO SCH (15:26)
[2021-10-07] MEDS: HEPARIN SOD 5,000 UNIT/0.5 ML VIAL SQ SCH (20:18)
[2021-10-08] MEDS: LACTATED RINGER'S 1,000 ML IV SCH (05:00)
[2021-10-08 06:23] LABS: Hematocrit (blood only) 39.3 % (40.1-51.0); Hemoglobin 13.2 g/dl (14.0-18.0); Mean Corpuscular Hemoglobin 29.9 pg (25.0-34.0); Mean Corpuscular Hgb Conc 33.6 g/dL (32.0-36.0); Mean Corpuscular Volume 89.1 fL (80.0-100.0); Mean Platelet Volume 10.9 fL (9.4-12.4); Platelet Count 266 K/uL (130-400); RDW Coefficient of Variation 14.6 % (11.5-14.5); RDW Standard Deviation 47.4 fL (36.4-46.3); Red Blood Count 4.41 M/uL (4.63-6.08); White Blood Count 11.66 K/ul (4.8-10.8)
[2021-10-08 07:04] LABS: BUN Creatinine Ratio 31.8 (10-20); Calcium 8.5 mg/dl (8.5-10.1); Creatinine Clr Calc Pharmacy 110.5 ml/min; Est GFR (African American) 126.1 ml/min; Est GFR (Non-African American) 108.8 ml/min; Magnesium 1.7 mg/dl (1.7-2.4); Phosphorus 2.2 mg/dl (2.5-4.9)
[2021-10-08] MEDS: THIAMINE HCL 100 MG in SYRINGE 9 ML IV SCH (07:37)
[2021-10-08] MEDS: NICOTINE 14 MG/24 HR PATCH TD SCH (07:37)
[2021-10-08] MEDS: HEPARIN SOD 5,000 UNIT/0.5 ML VIAL SQ SCH ×2 (07:38→20:11)
[2021-10-08] MEDS: FOLIC ACID 1 MG TAB PO SCH (07:38)
[2021-10-08] MEDS: MULTIVITAMIN TAB PO SCH (07:38)
[2021-10-08] MEDS: NYSTATIN SUSP 500,000 U/5 ML UDC PO SCH ×4 (07:39→20:11)
--- NOTE | 2021-10-08 10:25 | Hospitalist Progress Note ---
Date of Service October 08, 2021 Assessment & Plan (1) Esophageal dysphagia: (2) Weight loss: (3) Nausea and vomiting: (4) Abnormal CT scan, esophagus: (5) Hypokalemia: (6) Acute dehydration: (7) Leukocytosis: (8) Severe protein-calorie malnutrition: (9) Oropharyngeal candidiasis: (10) Tobacco abuse: Plan 56-year-old male who has significant past medical history for tobacco abuse who presents to ER secondary to weight loss, nausea and vomiting for the past 3 to 6 months. Severe malnutrition Failure to thrive Weight Loss Nausea and vomiting with solids/liquids Cachectic, barrel chested 56 year old male who presents after not seeing medical providers since 1979. He has approx 100lb weight loss with difficulty swallowing liquids and solid over last few months Admitting CTA chest with findings of esophageal dilation with patulous appearanc e GI on board EGD on 10/07/21, exam suggestive of achalasia and a nodule noted at the GEJ junction that might be inflammatory or neoplastic, biopsied Follow up biopsy result Patient will follow up GI outpatient for manometric testing. Tolerating full liquid. Advance to soft diet. Advised to chew completely before swallowing Monitor tolerance of new diet Stop IVF Nutritional recs noted. Supplements ordered Hepatitis C and HIV test pending. Continue with thiamine/folic acid/multivitamin. Electrolyte abnormalities: Secondary to dietary imbalance/poor intake Monitor closely and replete as appropriate. Hypophosphatemia today. Replete Leukocytosis: Admitting WBC 23K, no signs/source of infection, admitting Pro-Ritchie negative, patient afebrile. Blood culture negative so far Urine culture pending Continue to monitor off antibiotics Leukocytosis improved to 11K today possible reactive in setting of underlying situation Prediabetes: A1c this admission 5.8, Close follow-up with PCP as an outpatient for ongoing management. Tobacco abuse: Counseled extensively regarding smoking cessation Continue nicotine patch. DVT ppx: Heparin subcu PCP: none. Will need PCP setup on dc Plan for dc tomorrow FULL CODE Admission and Anticipated Discharge Date Admission Date: October 06, 2021 Subjective 56-year-old man with history of cigarette smoking who presented with nausea, vomiting and weight loss for the past 3 to 6 months. Being managed for malnutrition. Evaluation noted esophageal dilatation and patulous appearance on CT scans EGD on 10/07/2021 noted nodule at GEJ which was biopsied. EGD exam suggestive of possible achalasia. Patient seen and examined. Reports tolerating liquids today. Denies nausea, vomiting, abdominal pain, diarrhea Denies headache, dizziness Denies fevers, chills Denies chest cough, chest pain, shortness of breath Denies dysuria, frequency, urgency, incontinence Reports feeling better today Review of Systems Review of Systems: All systems reviewed & are unremarkable except as noted in Subjective Physical Exam Constitutional: + well hydrated; no acute distress Prominent bony promin ences Eyes: PERRL, conjunctivae normal, anicteric sclerae ENMT: external ear and nose normal, oropharynx normal Respiratory: normal respiratory effort, lungs clear to auscultation Cardiovascular: Rate/Rhythm: regular rhythm and + bradycardic S1 S2 Gastrointestinal (Abdomen): normal bowel sounds, soft, nontender, no hepatosplenomegaly Musculoskeletal: no cyanosis or clubbing, extremities motor strength 5/5 Neurologic: PERRL, EOMI, accommodation nl, no face palsy, no dysarthria Psychiatric: A+Ox3, euthymic affect Results & Data Results & Data ([facility]) Vital Signs (Past 12 Hours) Vital Signs Temp Pulse Pulse Resp BP Pulse Ox O2 Del Method 10/08/21 08:00 36.4 C L 53 L 18 124/71 100 Room Air 10/07/21 22:25 53 L 10/08/21 04:59 36.9 C 58 L 16 119/66 97 Room Air 10/07/21 23:22 36.7 C 54 L 16 116/63 99 Room Air Laboratory Results Abnormal lab results 10/07/21 10/07/21 10/07/21 Range/Units 14:03 18:24 20:26 WBC (4.8-10.8) K/ul RBC (4.63-6.08) M/uL Hgb (14.0-18.0) g/dl Hct (40.1-51.0) % RDW Std Deviation (36.4-46.3) fL RDW Coeff of Marcelo (11.5-14.5) % BUN 30 H (6-23) mg/dl BUN/Creatinine Ratio 41.1 H (10-20) Glucose 65 L (70-99(Fasting)) mg/dl POC Glucose 100 H 140 H (70-99) mg/dl Phosphorus (2.5-4.9) mg/dl 10/08/21 10/08/21 Range/Units 05:53 05:53 WBC 11.66 H (4.8-10.8) K/ul RBC 4.41 L (4.63-6.08) M/uL Hgb 13.2 L (14.0-18.0) g/dl Hct 39.3 L (40.1-51.0) % RDW Std Deviation 47.4 H (36.4-46.3) fL RDW Coeff of Marcelo 14.6 H (11.5-14.5) % BUN (6-23) mg/dl BUN/Creatinine Ratio 31.8 H (10-20) Glucose (70-99(Fasting)) mg/dl POC Glucose (70-99) mg/dl Phosphorus 2.2 L D (2.5-4.9) mg/dl
[2021-10-08] MEDS: POT PHOSPHATE MONOBASIC W/ SOD TAB PO SCH ×3 (12:52→20:11)
--- NOTE | 2021-10-08 17:26 | Gastroenterology Progress Note ---
Date of Service October 08, 2021 Assessment & Plan (1) Esophageal dysphagia: (2) Abnormal CT scan, esophagus: Plan: r/o esophageal tumor and acalasia Plan Symptoms, CT and EGD findings most consistent with achalasia. Dr. Dc contacted [facility] gastroenterology nursing. They are setting up outpatient manometry. Okay for discharged from a GI perspective. Patient will need to stay on liquid full liquid diet which may include soups, pured foods. He indicates understanding and willingness to do this. Admission and Anticipated Discharge Date Admission Date: October 06, 2021 Supervising Physician Co-Signing Physician Notes Attg add: I interviewed and examined pt. Pt with difficulty with chicken - he should remain on full liquids. OK for d/c, will try to expedite manometry. Subjective 56, male, admitted yesterday for vomiting/regurgitation of foods/liquids x 3 months. EGD on 10/07/2021 suggestive of achalasia. Nodule at GEJ biopsied, path pending. . Patient feels well, able to tolerate drinking thin and thick liquids but any solid foods are regurgitated soon after swallowing. Denies any abdominal pain. Hemodynamically stable. Review of Systems Review of Systems: ROS: Gen: + weakness, + weight loss Eyes: No eye redness, or pain, no recent vision changes Resp: No SOB, no cough Cardio: No palpitations/irregular beats, no chest pain GI: + regurgitation of foods/liquids after swallowing, see HPI. No abdominal pain : Denies pain on urination Skin: No jaundice, itching or new rashes Physical Exam Constitutional: well developed, + thin, cooperative and comfortable Eyes: PERRL, conjunctivae normal, anicteric sclerae Neck: trachea midline, no thyromegaly Respiratory: normal respiratory effort, lungs clear to auscultation Cardiovascular: RRR, no murmur, no edema Gastrointestinal (Abdomen): normal bowel sounds, soft, nontender, no hepatosplenomegaly Musculoskeletal: no cyanosis or clubbing, extremities motor strength 5/5 Skin: no rashes, warm and dry Neurologic: PERRL, EOMI, accommodation nl, no face palsy, no dysarthria Psychiatric: A+Ox3, euthymic affect Lymphatic: no cervical or axillary lymphadenopathy Results & Data ([facility]) Vital Signs (Past 12 Hours) Vital Signs Temp Pulse Resp BP Pulse Ox O2 Del Method 10/08/21 15:20 36.6 C 59 L 18 113/69 100 Room Air 10/08/21 08:00 36.4 C L 53 L 18 124/71 100 Room Air Laboratory Results WBC 11.6, Hb 13.2, HCT 39.3, PLT S266, PT 12, INR 1.1, NA 138, K4.0, CL 102, CO2 31, BUN 21, CR 0.66, glucose 74. Diagnostic Findings CTAP 10/06/21: 1. The distal esophagus is thick-walled, significantly distended, and filled with fluid/debris. Note patent this may place the patient at risk for aspiration. 2. The esophagus focally narrows at the gastroesophageal junction. This could be related to stricture or achalasia. Underlying mass lesion would be impossible to exclude. Correlation with endoscopy is recommended for further assessment. 3. Mildly enlarged gastrohepatic nodes are nonspecific and may be reactive. 4. Severe hepatic steatosis. 5. Moderate constipation. 6. Minimal patchy groundglass opacities are seen in the right middle lobe and lingula. Correlate clinically for evidence of aspiration. 7. Advanced coronary artery calcification. CT Chest: 1. No evidence of pulmonary embolism. 2. Ground glass opacities most prominent in the right greater than left upper lobe. This may represent infectious/inflammatory process. Follow-up to resolution is recommended. 3. Esophageal dilation and patulous appearance is noted. Clinical correlation is recommended as this appearance can be seen in achalasia and scleroderma. 4. Emphysema. No suspicious pulmonary nodules.
[2021-10-09 06:48] LABS: Hematocrit (blood only) 39.3 % (40.1-51.0); Hemoglobin 13.4 g/dl (14.0-18.0); Mean Corpuscular Hemoglobin 30.2 pg (25.0-34.0); Mean Corpuscular Hgb Conc 34.1 g/dL (32.0-36.0); Mean Corpuscular Volume 88.5 fL (80.0-100.0); Platelet Count 258 K/uL (130-400); RDW Coefficient of Variation 14.3 % (11.5-14.5); RDW Standard Deviation 45.7 fL (36.4-46.3); Red Blood Count 4.44 M/uL (4.63-6.08); White Blood Count 10.29 K/ul (4.8-10.8)
[2021-10-09 07:19] LABS: BUN Creatinine Ratio 17.5 (10-20); Calcium 8.1 mg/dl (8.5-10.1); Creatinine Clr Calc Pharmacy 123.3 ml/min; Est GFR (African American) 128.6 ml/min; Est GFR (Non-African American) 110.9 ml/min; Magnesium 1.5 mg/dl (1.7-2.4); Phosphorus 3.2 mg/dl (2.5-4.9); Potassium 3.6 mmol/L (3.5-5.1)
[2021-10-09] MEDS: FOLIC ACID 1 MG TAB PO SCH (08:42)
[2021-10-09] MEDS: MULTIVITAMIN TAB PO SCH (08:42)
[2021-10-09] MEDS: HEPARIN SOD 5,000 UNIT/0.5 ML VIAL SQ SCH (08:42)
[2021-10-09] MEDS ORDERED: MAGNESIUM SULFATE / D5W 1 GM/100 ML BAG IV ONE (08:42)
[2021-10-09] MEDS: NICOTINE 14 MG/24 HR PATCH TD SCH (08:43)
[2021-10-09] MEDS: NYSTATIN SUSP 500,000 U/5 ML UDC PO SCH ×2 (08:44→12:47)
[2021-10-09] MEDS: THIAMINE HCL 100 MG in SYRINGE 9 ML IV SCH (08:44)
[2021-10-09] MEDS ORDERED: MAGNESIUM OXIDE 400 MG TAB PO SCH (09:00)
[2021-10-09] MEDS ORDERED: FLUCONAZOLE 100 MG TAB PO ONE (11:25)
--- NOTE | 2021-10-09 11:36 | Discharge Summary ---
Date of Service October 09, 2021 Admission HPI Per Admitting Provider This is a 56-year-old male who has significant past medical history for tobacco abuse who presents to ER secondary to weight loss, nausea and vomiting for the past 3 to 6 months. Patient has been a tobacco abuser since the . He smokes roughly 1 pack/day. He also has not seen a medical provider since the as well. He lives at home with his brother and is currently employed. His brother and boss forced him to come to ER today due to patient having significant weight loss and inability to eat. Initially patient states he has had weight loss of approximately 100 pounds and difficulty swallowing for the past 2 months. After further questioning it does appear this been ongoing for at least 3 to 6 months. According to brother at one point patient weighed over 230 pounds. He is currently approximately 130. Patient states overall decreased appetite. When he does eat or drink he tends to vomit it back up. He states occasionally it is undigested food and occasionally it is liquid vomit. He states this happens intermittently and not with every meal. He denies any recent fever, chills, sweats, lightheadedness, syncope, chest pain, shortness of breath, URI symptoms, hematemesis, melena, hematochezia, dysuria, increased urgency or frequency with urination, hematuria. He does get dizzy when he goes from sitting to standing but never passed out. He has not had any routine cancer screenings including PSA or colonoscopy. No FH of cancer that pt is aware of. Both mother and father from [place]. Brother at bedside states father would have to get esophagus dilated, but unsure of reason. Also had a brother of ID in his 50s. He denies significant alcohol use or drug use. Admission Exam Per Admitting Provider Constitutional: Unkempt, malnourished male, cachectic with barrel chest, vitals as above, NAD, sitting up in bed, pleasant, conversing easily Head: Normocephalic, Atraumatic Eyes: PERRL, conjunctivae normal, anicteric sclerae, exophthalmos ENMT: external ear and nose normal, oropharynx normal very dry mucous membranes, poor dentition Neck: trachea midline, no thyromegaly normal visual inspection Respiratory: normal respiratory effort, lungs clear to auscultation, no wheeze, rales, rhonchi. Normal insp/exp effort, no accessory muscle use Cardiovascular: RRR, no murmur, no edema Vessels: no JVD or carotid bruit Chest: normal inspection of chest Abdomen: normal bowel sounds, soft, nontender, no hepatosplenomegaly Musculoskeletal: no cyanosis or clubbing, extremities motor strength 5/5 Skin: no rashes, warm and dry normal turgor Neurologic: PERRL, EOMI, accommodation nl, no face palsy, no dysarthria CN's II-XI intact bilaterally and moves all extremities Psychiatric: A+Ox3, euthymic affect Lymphatic: no cervical or axillary lymphadenopathy : deferred Principal Diagnosis Severe malnutrition Esophageal dysphagia Esophageal candidiasis Discharge Exam Constitutional + well hydrated; no acute distress Bony prominences Eyes PERRL, conjunctivae normal, anicteric sclerae ENMT external ear and nose normal, oropharynx normal Respiratory normal respiratory effort, lungs clear to auscultation Cardiovascular Rate/Rhythm: regular rhythm and + bradycardic S1 S2 Gastrointestinal (Abdomen) normal bowel sounds, soft, nontender, no hepatosplenomegaly Musculoskeletal no cyanosis or clubbing, extremities motor strength 5/5 Neurologic PERRL, EOMI, accommodation nl, no face palsy, no dysarthria Psychiatric A+Ox3, euthymic affect Discharge Data Allergies Allergy/AdvReac Type Severity Reaction Status Date / Time mushroom AdvReac Hives Verified 10/07/21 17:10 Consultations 10/06/21 13:29 ED Decision to Admit Stat 10/06/21 13:41 Consult Gastroenterology Routine Procedures Performed Operation Date: 10/07/21 08:15 Actual Procedures p EGD Biopsy Cytology - Sona Dc MD Ordered Studies 10/06/21 11:27 CT abd pelvis IV con only Stat Lung bases: The heart is normal in size and without pericardial effusion. The coronary arteries are densely calcified. There are minimal groundglass opacities in the right middle lobe and lingula. Scarring/atelectasis is seen in the lung bases. No pleural effusion is identified. The distal esophagus is distended and filled with fluid and calcified debris. There is wall thickening of the distal esophagus. This focally narrows at the gastroesophageal junction. Liver: The contrast-enhanced liver is top normal in size and demonstrates diffusely diminished attenuation indicating severe steatosis. Fatty sparing is seen adjacent to the gallbladder fossa. There is no intrahepatic biliary ductal dilatation. The hepatic veins and portal veins are patent. Gallbladder: Unremarkable. Spleen: Normal in size and attenuation. There are calcified splenic granulomas. Pancreas: Mildly atrophic and grossly unremarkable. Adrenal glands: Unremarkable. Kidneys: The contrast enhanced kidneys are normal in size and without hydronephrosis. The kidneys enhance symmetrically. Abdominal vasculature: The abdominal aorta is normal in course and caliber noting moderate atherosclerotic calcification. Bowel: There is moderate constipation. No bowel obstruction is seen. The appendix is well-visualized and normal. Peritoneum: There is no intraperitoneal free air or abdominal ascites. Lymphadenopathy: Mildly enlarged gastrohepatic lymph nodes measure up to 10 mm in short axis. Pelvic viscera: The prostate gland is enlarged and heterogeneous. The bladder wall appears thickened and trabeculated indicating chronic outlet obstruction. Skeletal structures: The skeletal structures appear osteopenic. There is mild lumbosacral spondylosis. No lytic or blastic lesions are seen. IMPRESSION: 1. The distal esophagus is thick-walled, significantly distended, and filled with fluid/debris. Note patent this may place the patient at risk for aspiration. 2. The esophagus focally narrows at the gastroesophageal junction. This could be related to stricture or achalasia. Underlying mass lesion would be impossible to exclude. Correlation with endoscopy is recommended for further assessment. 3. Mildly enlarged gastrohepatic nodes are nonspecific and may be reactive. 4. Severe hepatic steatosis. 5. Moderate constipation. 6. Minimal patchy groundglass opacities are seen in the right middle lobe and lingula. Correlate clinically for evidence of aspiration. 7. Advanced coronary artery calcification. CT angio chest PE protocol Stat Lungs and pleura: Diffuse centrilobular emphysema is seen most prominent in the upper lobes. Scattered groundglass opacities are noted in the right greater than left upper lobe. Intraparenchymal lymph nodes are noted in the fissures. No suspicious pulmonary nodules are seen. Heart and pericardium: Heart size is normal. No pericardial effusion. Vessels: No evidence of pulmonary embolism. Mediastinum and kary: Patulous and thickened esophagus is noted with layering liquid contents. No mediastinal lymphadenopathy is seen. Chest wall and lower neck: Subcentimeter thyroid nodules are noted which do not require follow-up by ACR criteria. Abdomen: For findings below the diaphragm, please refer to CT of the abdomen dated the same. Bones: Degenerative changes in the thoracic spine. IMPRESSION: 1. No evidence of pulmonary embolism. 2. Ground glass opacities most prominent in the right greater than left upper lobe. This may represent infectious/inflammatory process. Follow-up to resolution is recommended. 3. Esophageal dilation and patulous appearance is noted. Clinical correlation is recommended as this appearance can be seen in achalasia and scleroderma. 4. Emphysema. No suspicious pulmonary nodules. Hospital Course (1) Esophageal dysphagia: (2) Weight loss: (3) Nausea and vomiting: (4) Abnormal CT scan, esophagus: (5) Hypokalemia: (6) Acute dehydration: (7) Leukocytosis: (8) Severe protein-calorie malnutrition: (9) Oropharyngeal candidiasis: (10) Tobacco abuse: Plan 56-year-old male who has significant past medical history for tobacco abuse who presents to ER secondary to weight loss, nausea and vomiting for the past 3 to 6 months. Severe malnutrition Failure to thrive Weight Loss Nausea and vomiting with solids/liquids Esophageal candidasis 56 year old male who presents after not seeing medical providers since 1979. He reported approx 100lb weight loss with difficulty swallowing liquids and solid over last few months Admitting CTA chest with findings of esophageal dilation with patulous appearance GI evaluated EGD on 10/07/21, exam suggestive of achalasia and a nodule noted at the GEJ junction that might be inflammatory or neoplastic, biopsied Patient will follow up GI outpatient for manometric testing. Biopsy was negative for metaplasia, dysplasia and malignancy but showed extensive candidal esophagitis and candidal gastritis Patient was started on fluconazole today 400mg once and then to continue on 200mg daily from tomorrow to complete 3 weeks treatment Tolerating diet well Advised to chew food properly before swallowing Continue with thiamine/folic acid/multivitamin. Electrolyte abnormalities: Had hypokalemia on presentation Secondary to dietary imbalance/poor intake Electrolytes were repleted Discharged on po magnesium Leukocytosis: Admitting WBC 23K, admitting Pro-Ritchie negative, No fever Blood culture and urine cultures negative No antibiotics given Leukocytosis resolved. 10K today Prediabetes: A1c this admission 5.8, Tobacco abuse: Counseled extensively regarding smoking cessation Patient reported he does not have a PCP. Appointment was set up for him Total Time Total Time Spent Total Time Spent (In Minutes): 40 Total Time Includes: Examination of the Patient, Discharge Planning, Medication Reconciliation and Communication With Other Providers Discharge Plan Discharge Items Patient Disposition: Home - Self-Care Reason For Visit: DIFFICULTY SWALLOWING, WEIGHT LOSS Discharge Diagnosis: Severe malnutrition Esophageal dysphagia Esophageal candidiasis Activity: Resume your previous activity Non-emergency contact: Primary Care Provider Call non-emergency contact if: you have any medication questions and your symptoms worsen Follow-up/Referrals: Mal Leung DO [Outside Practitioners] - (Date & Time 10/16/2021 11:20 AM Provider Mal Leung DO Department [facility] ) Diet: Regular Diet Texture: Easy to Chew Addtl Attending Provider Instructions: Mr Corey. You came to the hospital complaining of difficulty swallowing and unintentional weight loss. You were evaluated by [facility] Att[facility] and had upper endoscopy. This showed narrowing in the lower part of your esophagus (food pipe) and a nodule. Nodule was biopsied. Please ensure you follow up with Gastroenterology outpatient for further evaluation Please ensure you chew all food properly before swallowing and follow the dietary recommendations we discussed. Please take the fluconazole ordered from tomorrow for next 3 weeks Please ensure follow up with Primary Doctor's appointment made. It was a pleasure taking care of you. Pending Studies at Discharge: No Stand-Alone Forms: My [facility] ([facility]), Smoking Cessation Medications and DC Order Prescriptions: New magnesium oxide 400 mg (241.3 mg magnesium) Tablet 400 mg PO QAM Qty: 30 0RF folic acid 1 mg Tablet 1 mg PO QAM Qty: 30 0RF multivitamin with folic acid [Daily-Antonia (with folic acid)] 400 mcg Tablet 1 tab PO QAM Qty: 30 0RF fluconazole 200 mg tablet 200 mg PO DAILY 20 Days Qty: 20 0RF Rx Instructions: Start on 10/10/21 Discharge Orders: Discharge Order (Routine); Ordered 10/09/21 Ordered By: Arlette Hartley Admission Data Admit Date/Time: 10/06/21 13:41 Attending Provider: Arlette Hartley I. Admit Provider: Emma Ma Primary Care Provider: PCP,NO Other Providers: Emma Ma ; Sona Dc ; Danielle Peralta Other Interventions: Discharge Summary Assessment (RN) Last Done: 10/09/21 13:23
--- NOTE | 2021-10-17 21:10 | Coding Query ---
CODING QUERY To promote full compliance with coding requirements relating to patient care, provider participation is requested in all cases of certified medical coder uncertainty. Please assist us with the question(s) below: Coding Question(s): Pt admitted with dysphagia,weight loss,severe malnutrition, dehydration. EGD with biopsy of esophagus and stomach negative for malignancy. GI 10/08 progress note documented achalasia with outpatient followup for manometry. Path report identified candidiasis of esophagus and stomach. Please document, if known or supected, the etiology of the patient's dysphagia and resulting severe malnutrition. Thanks for your help. Cuong Rivas [facility] Physician's Response(s): Patient's dysphagia and weight loss are due to esophageal candidiasis and possible achalasia Principal Diagnosis: "that condition established after study, to be chiefly responsible for occasioning the admission of the patient to the hospital for care." Co-Existing Principal Diagnosis: "when two or more diagnoses equally meet the criteria for principal diagnosis as determined by the circumstances of admission, diagnostic work up, and/or therapy provided, and the Alphabetic Index, Tabular List, or another coding guideline does not provide sequencing direction, any one of the diagnoses may be sequenced first." "When the physician has documented what appears to be a current diagnosis in the body of the record, but has not included the diagnosis in the final diagnostic statement, the physician should be asked whether the diagnosis should be added." (Source Coding [facility] 2 QTR90. p3-4) [facility]
== END 2021-10-09 15:30 | disposition home or self-care (01) | DRG 368 ==
LOC: ED 10:14 → 2N 13:41 → SUATTDRO 13:41 → 2N 14:40

== ENCOUNTER 2022-03-17 12:13 | Inpatient (IN) ==
[2022-03-17] MEDS ORDERED: FAMOTIDINE 20MG IV PUSH 20 MG/5 ML SYR IV STA (12:23)
[2022-03-17] MEDS ORDERED: ONDANSETRON INJ 2 MG/ML 2 ML VIAL IV STA (12:23)
[2022-03-17] MEDS ORDERED: methylPREDNISolone 125 MG/2 ML VIAL IV STA (12:23)
[2022-03-17] MEDS ORDERED: ALBUT/IPRATROP 3MG/0.5MG NEB 3 ML VIAL NEB STA (12:23)
[2022-03-17] MEDS ORDERED: SODIUM CHLORIDE 0.9% 1000ML 2,000 ML IV ONE (12:23)
[2022-03-17 13:11] LABS: Hematocrit (blood only) 50.3 % (42.0-52.0); Hemoglobin 16.7 g/dl (14.0-18.0); Mean Corpuscular Hemoglobin 30.1 pg (25.0-34.0); Mean Corpuscular Hgb Conc 33.2 g/dL (32.0-36.0); Mean Corpuscular Volume 90.6 fL (80.0-100.0); Mean Platelet Volume 10.5 fL (9.4-12.4); Platelet Count 615 K/uL (130-400); RDW Coefficient of Variation 13.8 % (11.5-14.5); RDW Standard Deviation 45.9 fL (36.4-46.3); Red Blood Count 5.55 M/uL (4.70-6.10); White Blood Count 31.85 K/ul (4.8-10.8)
--- NOTE | 2022-03-17 13:15 | XRay Report ---
XR chest 1V portable HISTORY: 57 years-old Male Chest pain, nonspecific acute shortness of breath with chest pain COMPARISON: Chest radiograph and CTA chest the 2021 TECHNIQUE: AP view of the chest FINDINGS: Cardiomediastinal and hilar silhouettes are within normal limits. Atherosclerosis of the aorta. No pl eural effusion or overt pulmonary edema. There is a linear lucency of the lateral left midlung. Scatt ered calcified granulomata of the spleen. Degenerative changes of the shoulders and spine. IMPRESSION: 1. Linear lucency of the lateral left midlung is suggestive of a skin fold. A pneumothorax is conside red much less likely. 2. No airspace consolidation to suggest pneumonia. ACT 112: Negative or not required by law. The above report was generated using voice recognition software. It may contain grammatical, syntax o r spelling errors. Electronically signed by: Irineo Antonio M.D. 03/17/2022 1:14 PM
[2022-03-17 13:27] LABS: Basophils # (auto) 0.09 K/uL (0-0.2); Basophils % (auto) 0.3 %; Eosinophils # (auto) 0.03 K/uL (0-0.50); Eosinophils % (auto) 0.1 %; Immature Granulocytes # (auto) 0.21 K/uL (0.01-0.20); Immature Granulocytes % (auto) 0.7 %; Lymphocytes # (auto) 3.18 K/uL (1.2-3.4); Monocytes # (auto) 1.14 K/uL (0.11-0.59); Monocytes % (auto) 3.6 %; Neutrophils % (auto) 85.3 %
[2022-03-17] MEDS ORDERED: PIPERACILLIN/TAZOBACTAM 4.5 GM/120 ML BAG IV ONE (13:28)
[2022-03-17 13:29] LABS: Albumin Globulin Ratio 0.6 (0.9-2); Albumin Level 3.4 gm/dl (3.4-5.0); BUN Creatinine Ratio 18.3 (10-20); Bilirubin Direct 0.1 mg/dl (0-0.2); Bilirubin,Total 0.6 mg/dl (0.2-1.0); Calcium 9.5 mg/dl (8.5-10.1); Creatinine Clr Calc Pharmacy 35.3 ml/min; Est GFR (African American) 58.1 ml/min; Est GFR (Non-African American) 50.1 ml/min; Globulin 5.5 gm/dl (2.5-4.0); Influenza A virus by PCR Negative (Neg); Influenza B virus by PCR Negative (Neg); Magnesium 2.3 mg/dl (1.7-2.4); Phosphorus 3.1 mg/dl (2.5-4.9); Potassium 3.7 mmol/L (3.5-5.1); RSV by PCR Negative (Neg); SARS CoV2 RNA(COVID-19) Ceph NEGATIVE (Negative); Total Protein 8.9 gm/dl (6.0-8.3)
[2022-03-17 13:30] LABS: Troponin I High Sensitivity 11.8 pg/ml (0-20)
[2022-03-17] MEDS ORDERED: OPTIRAY 320 500ml IV ONE (14:14)
--- NOTE | 2022-03-17 14:39 | Emergency Department Note ---
Impression & Plan Aspiration pneumonia, DUNG (acute kidney injury), Severe protein-calorie malnutrition, Oropharyngeal candidiasis, Thrombocytosis ED Provider Note NAME: JERRY BENAVIDEZ AGE: 57 SEX: M ARRIVES VIA: Ambulance INFORMANT: Patient ED PROVIDER(S): Lion Alfonso MD CHIEF COMPLAINT: SOB, n/v PLAN: Disposition: Admit MEDICAL DECISION MAKING: The patient is a pleasant 57-year-old gentleman with a past medical history of esophageal dysphagia, oropharyngeal candidiasis, failure to thrive, tobacco abuse who presents to the emergency department via EMS from home for worsening cough, congestion and shortness of breath over the past several days in the setting of his report of having ongoing daily nausea and vomiting related to his history of dysphagia. He reports that he understands he was supposed to maintain a soft diet and reports he takes in soft solids at times. He denies fevers. He reports productive sputum. He denies diarrhea or urinary symptoms. On arrival the patient is uncomfortable but in no acute distress, afebrile with heart rate in the 100s blood pressure 90s/70s. Patient appears clinically dry and cachectic. Oropharynx with dry mucous membranes and white plaques in the posterior pharynx consistent with patient's history of esophageal candidiasis. He has wheezes and rhonchi in bilateral lung cordova. EKG without overt acute ischemia. CXR negative for acute cardiopulmonary process. WBC 31.8K with neutrophil predominance. H/H 16.7/50.3 increased from prior in the setting of the patient's tobacco abuse. Platelets 615K non-specific and likely reactive. Creatinine 1.5 increased from prior consistent the patient is clinically dry appearance. LFTs unremarkable. Lipase is not elevated. High- sensitivity troponin 11.8, within normal limits. COVID-19, influenza and RSV PCR's were negative. Lactate 1.6, within normal limits. Procalcitonin is mildly elevated at 0.51. CTA of the chest and CT of the abdomen pelvis was performed for evaluation of the patient's symptoms and leukocytosis. CTs were negative for PE however e vidence of aspiration pneumonia is noted. Additionally, dilated fluid-filled and thickened esophagus seen at the level of the GE junction. The patient's leukocytosis and presentation consistent with aspiration pneumonia he was treated with IV Zosyn following blood cultures. He was additionally provided with >30cc/kg of IVF/NSS in addition to Solu-Medrol and DuoNeb for bronchospasm. HR and BP improved Patient agrees with plan for admission for further management. Case was discussed with Herman Sotelo PAC with [facility] Draper hospitalist, who will evaluate the patient for admission. Triage Nursing notes reviewed and agree them. Prior/outside medical records reviewed Vital Signs: reviewed Differential diagnosis: See below. ER treatment provided: See below. Diagnostics interpreted by me: ECG: Sinus tachycardia, 109 bpm, LVH, nonspecific ST abnormality, no overt ST elevation or depression, QTc 463, QRS 82. Cardiac Monitoring: An order for continuous cardiac monitoring was placed and demonstrated Sinus tachycardia, 109 bpm, no ectopy. Laboratory studies: See below Imaging studies: See below Consultation(s): Herman Sotelo with Herman Draper hospitalist HPI: The patient is a pleasant 57-year-old gentleman with a past medical history of esophageal dysphagia, oropharyngeal candidiasis, failure to thrive, tobacco abuse who presents to the emergency department via EMS from home for worsening cough, congestion and shortness of breath over the past several days in the setting of his report of having ongoing daily nausea and vomiting related to his history of dysphagia. He reports that he understands he was supposed to maintain a soft diet and reports he takes in soft solids at times. He denies fevers. He reports productive sputum. He denies diarrhea or urinary symptoms. ROS: See above HPI for pertinent positives & negatives. A total of 10 systems reviewed and were otherwise negative. VITALS:See Below PHYSICAL EXAMINATION: GENERAL: Awake, alert, ill-appearing, in no distress. Cachectic. Unkempt. HENT: Normocephalic, atraumatic. Oropharynx with dry mucous membranes and white plaques in the posterior pharynx consistent with patient's history of esophageal candidiasis. EYES: Normal conjunctiva. Sclera non-icteric. NECK: Supple. No nuchal rigidity. FROM. No JVD. RESPIRATORY: Wheezes and rhonchi bilateral lung cordova. CARDIAC: Regular rate, normal rhythm. Extremities warm and well perfused. Pulses equal. ABDOMEN: Soft, non-distended. No tenderness to palpation. No rebound or guarding. No masses. RECTAL: Deferred. MUSCULOSKELETAL: Chest examination reveals no tenderness. The back is symmetrical on inspection without obvious abnormality. There is no CVA tenderness to palpation. No joint edema. LOWER EXTREMITIES: Calves are equal size bilaterally and non-tender. No edema. No discoloration. NEURO: Normal sensorium. No sensory or motor deficits noted. SKIN: No rash or jaundice noted. ED COURSE: Critical Care: I have personally spent greater than 35 minutes of critical care time in the direct management of this patient. This includes bedside care, interpretation of diagnostic studies, and testing, discussion with consultants, patient, and family members, and other required patient management activities. This 35 minutes is in excess of all separately billable procedures. Lion Alfonso MD Past Med/Surg History Medical History (Updated 03/18/22 @ 02:25 by Lion Alfonso MD) Achalasia Tobacco abuse Surgical History No pertinent past surgical history Family History Mother , 55 [place] Myocardial infarction Diabetes Father , 77 -[place]+ Myocardial infarction Diabetes Brother , [place] - 50s Myocardial infarction Brother No problems noted. Social History Smoking Status: Light tobacco smoker Tobacco Type: Cigarettes packs per day: 1; Second Hand Exposure: No; Hx Alcohol Use: Yes Alcohol type: hard liquor Alcohol type Comment: Holidays only Hx Substance Use: No Preferred Language: Kosovan Communication Ability: Effective Carpenter Foreman Required: No Beliefs That Will Affect Care: None marital status: Single Current Living Situation: Family Current Living Situation Comment: lives with brother Feels Safe at Home: Yes Assistive Devices: None Allergies Allergies Allergy/AdvReac Type Severity Reaction Status Date / Time mushroom AdvReac Intermediate Hives Verified 03/17/22 15:16 Home Meds Home Medications Medication Instructions Recorded Confirmed No Known Home Medications 03/17/22 03/17/22 Results & Data (ED) Vital Signs Vital Signs - 24 hr 03/17/22 12:32 03/17/22 12:32 03/17/22 12:43 Temperature 36.6 C Temperature Source Oral Pulse Rate 101 H 107 H Pulse Rate [Right Finger] Pulse Strength Normal Respiratory Rate 19 19 Respiratory Effort / Characteristics Spontaneous Spontaneous Respiratory Depth Normal Respiratory Pattern Regular Regular Blood Pressure 94/76 L Blood Pressure [Right Arm] Blood Pressure Mean 82 Blood Pressure Mean [Right Arm] Blood Pressure Position [Right Arm] Pulse Oximetry 99 99 Oxygen Delivery Method Room Air Room Air Room Air Sepsis Recent Fever Within 48 Hours No Sepsis New/Unexplained Change in Mental Status No Sepsis Action Taken by Nursing Physician Notified 03/17/22 12:44 03/17/22 14:17 Temperature 36.6 C Temperature Source Oral Pulse Rate Pulse Rate [Right Finger] 114 H 79 Pulse Strength Respiratory Rate 19 19 Respiratory Effort / Characteristics Non-Labored Non-Labored Spontaneous Respiratory Depth Normal Normal Respiratory Pattern Regular Regular Blood Pressure Blood Pressure [Right Arm] 94/76 L 109/77 Blood Pressure Mean Blood Pressure Mean [Right Arm] 82 87 Blood Pressure Position [Right Arm] Lying Lying Pulse Oximetry 92 97 Oxygen Delivery Method Room Air Room Air Sepsis Recent Fever Within 48 Hours Sepsis New/Unexplained Change in Mental Status Sepsis Action Taken by Nursing Laboratory Data Attestation: I reviewed the patient's lab results. 03/17/22 12:25 03/17/22 12:25 Lab Results 03/17/22 03/17/22 03/17/22 Range/Units 12:25 12:25 12:25 WBC 31.85 H* (4.8-10.8) K/ul RBC 5.55 (4.70-6.10) M/uL Hgb 16.7 (14.0-18.0) g/dl Hct 50.3 (42.0-52.0) % MCV 90.6 (80.0-100.0) fL MCH 30.1 (25.0-34.0) pg MCHC 33.2 (32.0-36.0) g/dL RDW Std Deviation 45.9 (36.4-46.3) fL RDW Coeff of Marcelo 13.8 (11.5-14.5) % Plt Count 615 H (130-400) K/uL MPV 10.5 (9.4-12.4) fL Immature Gran % (Auto) 0.7 % Neut % (Auto) 85.3 % Lymph % (Auto) 10.0 % [place] % (Auto) 3.6 % Eos % (Auto) 0.1 % Baso % (Auto) 0.3 % Neut # (Auto) 27.20 H (1.40-6.50) K/uL Lymph # (Auto) 3.18 (1.2-3.4) K/uL [place] # (Auto) 1.14 H (0.11-0.59) K/uL Eos # (Auto) 0.03 (0-0.50) K/uL Baso # (Auto) 0.09 (0-0.2) K/uL Immature Gran # (Auto) 0.21 H (0.01-0.20) K/uL Sodium 136 (136-145) mmol/L Potassium 3.7 (3.5-5.1) mmol/L Chloride 93 L (98-107) mmol/L Carbon Dioxide 32 (21-32) mmol/L Anion Gap 11 (3-11) BUN 28 H (6-23) mg/dl Creatinine 1.53 H (0.6-1.4) mg/dl Est Cr Clr Drug Dosing 35.3 ml/min Est GFR ( Amer) 58.1 ml/min Est GFR (Non-Af Amer) 50.1 ml/min BUN/Creatinine Ratio 18.3 (10-20) Glucose 114 H (70-99(Fasting)) mg/dl Lactate (0.4-2.0) mmol/L Calcium 9.5 (8.5-10.1) mg/dl Phosphorus 3.1 (2.5-4.9) mg/dl Magnesium 2.3 (1.7-2.4) mg/dl Total Bilirubin 0.6 (0.2-1.0) mg/dl Direct Bilirubin 0.1 (0-0.2) mg/dl AST 12 L (13-39) U/L ALT 5 L (7-52) U/L Alkaline Phosphatase 104 (34-104) U/L Troponin I High Sens 11.8 (0-20) pg/ml Total Protein 8.9 H (6.0-8.3) gm/dl Albumin 3.4 (3.4-5.0) gm/dl Globulin 5.5 H (2.5-4.0) gm/dl Albumin/Globulin Ratio 0.6 L (0.9-2) Lipase 41 (11-82) U/L Procalcitonin (0-0.5) ng/ml SARS-CoV-2 (PCR) NEGATIVE (Negative) Influenza Type A (PCR) Negative (Neg) Influenza Type B (PCR) Negative (Neg) RSV (RT-PCR) Negative (Neg) 03/17/22 03/17/22 Range/Units 12:25 14:29 WBC (4.8-10.8) K/ul RBC (4.70-6.10) M/uL Hgb (14.0-18.0) g/dl Hct (42.0-52.0) % MCV (80.0-100.0) fL MCH (25.0-34.0) pg MCHC (32.0-36.0) g/dL RDW Std Deviation (36.4-46.3) fL RDW Coeff of Marcelo (11.5-14.5) % Plt Count (130-400) K/uL MPV (9.4-12.4) fL Immature Gran % (Auto) % Neut % (Auto) % Lymph % (Auto) % [place] % (Auto) % Eos % (Auto) % Baso % (Auto) % Neut # (Auto) (1.40-6.50) K/uL Lymph # (Auto) (1.2-3.4) K/uL [place] # (Auto) (0.11-0.59) K/uL Eos # (Auto) (0-0.50) K/uL Baso # (Auto) (0-0.2) K/uL Immature Gran # (Auto) (0.01-0.20) K/uL Sodium (136-145) mmol/L Potassium (3.5-5.1) mmol/L Chloride (98-107) mmol/L Carbon Dioxide (21-32) mmol/L Anion Gap (3-11) BUN (6-23) mg/dl Creatinine (0.6-1.4) mg/dl Est Cr Clr Drug Dosing ml/min Est GFR ( Amer) ml/min Est GFR (Non-Af Amer) ml/min BUN/Creatinine Ratio (10-20) Glucose (70-99(Fasting)) mg/dl Lactate 1.6 (0.4-2.0) mmol/L Calcium (8.5-10.1) mg/dl Phosphorus (2.5-4.9) mg/dl Magnesium (1.7-2.4) mg/dl Total Bilirubin (0.2-1.0) mg/dl Direct Bilirubin (0-0.2) mg/dl AST (13-39) U/L ALT (7-52) U/L Alkaline Phosphatase (34-104) U/L Troponin I High Sens (0-20) pg/ml Total Protein (6.0-8.3) gm/dl Albumin (3.4-5.0) gm/dl Globulin (2.5-4.0) gm/dl Albumin/Globulin Ratio (0.9-2) Lipase (11-82) U/L Procalcitonin 0.51 H (0-0.5) ng/ml SARS-CoV-2 (PCR) (Negative) Influenza Type A (PCR) (Neg) Influenza Type B (PCR) (Neg) RSV (RT-PCR) (Neg) Administered Medications Heparin Sodium (Porcine) (Heparin Sod 5,000 Unit/0.5 Ml Vial) 5,000 units SQ Q12 CORAL Stop: 04/16/22 20:59 Last Admin: 03/17/22 23:00 Dose: 5,000 units Documented By: KIMMY Dextrose/Sodium Chloride (D5w And Nss) 1,000 mls @ 80 mls/hr IV .[id number] CORAL Stop: 04/16/22 16:03 Last Admin: 03/17/22 16:19 Dose: 80 mls/hr Documented By: AURORA Piperacillin Sod/Tazobactam (Sod 3.375 gm/ Dextrose) 115 mls @ 28.75 mls/hr IV Q8H CORAL; Protocol Stop: 03/24/22 19:59 Last Admin: 03/17/22 23:00 Dose: 28.8 mls/hr Documented By: KIMMY Pantoprazole Sodium 40 mg/ (Syringe) 10 mls @ 5 mls/min IV BID CORAL Stop: 04/16/22 20:59 Last Admin: 03/17/22 20:28 Dose: 5 mls/min Documented By: KIMMY Fluconazole (Diflucan) 200 mg in 100 mls @ 100 mls/hr IV Q24H CORAL; Protocol Stop: 03/27/22 17:59 Last Infusion: 03/17/22 20:03 Dose: 0 mls/hr Documented By: Admin: 03/17/22 18:19 Dose: 100 mls/hr Documented By: AURORA Nicotine (Nicotine 7 Mg/24 Hr Tdsy) 7 mg TD QAM CORAL Stop: 04/16/22 16:14 Last Admin: 03/17/22 16:56 Dose: 7 mg Documented By: AURORA Nystatin (Nystatin Susp 500,000 U/5 Ml Udc) 10 ml PO TID CORAL Stop: 04/16/22 20:59 Last Admin: 03/17/22 20:28 Dose: 10 ml Documented By: KIMMY Discontinued Medications Albuterol (Albut/Ipratrop 3mg/0.5mg Neb 3 Ml Vial) 3 ml NEB NOW STA; Protocol Stop: 03/17/22 12:24 Last Admin: 03/17/22 13:10 Dose: 3 ml Documented By: AURORA Sodium Chloride (Nss 1000ml) 2,000 mls @ 999 mls/hr IV .Q2H1M ONE Stop: 03/17/22 14:23 Last Infusion: 03/17/22 15:25 Dose: 0 mls/hr Documented By: Admin: 03/17/22 13:10 Dose: 999 mls/hr Documented By: AURORA Famotidine (Pepcid 20mg Iv Push) 20 mg in 5 mls @ 2.5 mls/min IV NOW STA Stop: 03/17/22 12:24 Last Admin: 03/17/22 13:10 Dose: 2.5 mls/min Documented By: AURORA Piperacillin Sod/Tazobactam Sod (Zosyn) 4.5 gm in 120 mls @ 240 mls/hr IV NOW ONE Stop: 03/17/22 13:57 Last Infusion: 03/17/22 15:25 Dose: 0 mls/hr Documented By: Admin: 03/17/22 14:38 Dose: 240 mls/hr Documented By: AURORA Multivitamins 10 ml/ Thiamine HCl 100 mg/ Folic Acid 1 mg/Sodium Chloride 1,011.2 mls @ 1,011.2 mls/hr IV .Q1H ONE Stop: 03/17/22 18:29 Last Infusion: 03/17/22 19:08 Dose: 0 mls/hr Documented By: Admin: 03/17/22 17:51 Dose: 1,011.2 mls/hr Documented By: AURORA Ioversol (Optiray 320 500ml) 108 ml IV ONCE ONE Stop: 03/17/22 14:15 Last Admin: 03/17/22 14:08 Dose: 108 ml Documented By: LIANG Methylprednisolone (Methylprednisolone 125 Mg/2 Ml Vial) 125 mg IV NOW STA Stop: 03/17/22 12:24 Last Admin: 03/17/22 13:10 Dose: 125 mg Documented By: AURORA Ondansetron HCl (Ondansetron Inj 2 Mg/Ml 2 Ml Vial) 4 mg IV NOW STA Stop: 03/17/22 12:24 Last Admin: 03/17/22 13:09 Dose: 4 mg Documented By: AURORA Imaging Data Radiologist's Impression: Abdomen/Pelvis CT 03/17/22 13:[address] WITH IV CONTRAST HISTORY: Acute chest and abdominal pain with nausea and vomiting abd pain,n/v TECHNIQUE: Multiaxial CT images of the abdomen and pelvis were performed following the IV administration of 108 cc of Optiray, A dose lowering technique was utilized adhering to the principles of ALARA. COMPARISON STUDY: CTA chest of same day, CT abdomen and pelvis 10/06/2021 FINDINGS: Limited exam secondary to cachectic body habitus and lack of intra- abdominal fat, worsened from the prior study. Bibasilar predominant mucus plugging with patchy bibasilar groundglass/consolidative and tree-in-bud nodular opacities. No pneumatosis or pneumoperitoneum. Calcific granulomata of the spleen. Unremarkable adrenal glands and visualized pancreas. The gallbladder is within normal limits. The liver is mildly enlarged. Patency of the hepatic and portal veins. No hepatic mass identified. Unremarkable kidneys. No hydronephrosis. Nonspecific urinary bladder wall thick ening. Prostamegaly. Fat and fluid filled small right inguinal hernia. Atherosclerosis of the aorta without aneurysm. No lymphadenopathy identified. Fluid-filled distended distal esophagus with narrowed gastroesophageal junction redemonstrated. Moderate rectal fecal retention. No bowel obstruction or bowel wall thickening identified. Mild colonic fecal retention. Visualized appendix appears noninflamed. Stool-filled terminal ileum. The previously noted prominent gastrohepatic lymph nodes are not definitively seen on today's study. Mild generalized body wall edema. No acute fracture or destructive bone lesion identified. IMPRESSION: 1. Limited exam, notably secondary to cachectic body habitus and lack of intra-abdominal fat, worsened from the prior study. 2. Mucous plugging with bibasilar opacities compatible with an infectious or inflammatory pneumonitis. Correlate clinically to exclude aspiration. 3. Distended mildly fluid-filled distal esophagus with narrowing at the gastroesophageal junction is similar to the 28/10/2021 study. Findings could be correlated with endoscopy. 4. No bowel obstruction or bowel wall thickening. 5. Prostamegaly with findings suggestive of chronic bladder outlet obstruction. 6. Additional findings as above. ACT 112: Negative or not required by law. The above report was generated using voice recognition software. It may contain grammatical, syntax or spelling errors. Electronically signed by: Irineo Antonio M.D. 03/17/2022 2:41 PM Chest CTA 03/17/22 13:28 CHEST CTA for PULMONARY ARTERIES CT DOSE: 576.80 mGy.cm HISTORY: Shortness of breath, hypoxia, r/o PE TECHNIQUE: Multiaxial CT images of the chest were performed following the intravenous administration of contrast to evaluate the pulmonary arteries. Maximal intensity projection images were also obtained. A dose lowering technique was utilized adhering to the principles of ALARA. COMPARISON STUDY: Chest CT 10/06/2021. FINDINGS: Limited views of the upper abdomen demonstrate a normal liver and adrenal glands. There are few punctate calcified granulomas within the spleen. The thyroid gland enhances normally. Dilated, fluid-filled, thickened esophagus is again noted. This is similar to the prior study. The heart is normal in size. No pleural or pericardial effusions. No mediastinal or hilar lymphadenopathy. Normal caliber thoracic aorta with no evidence for a dissection. No filling defects within the pulmonary arteries to suggest a pulmonary embolus. No pneumothorax. Small amount of mucoid material within the distal trachea. There is partial opacification of the bronchus intermedius. Mild diffuse bronchiectasis. Opacified distal right lower lobe bronchi. There is partial opacification of multiple distal lingular and right middle lobe bronchi with patchy irregular densities within the lung bases with associated tree-in-bud nodular opacities most pronounced on the right. No pneumothorax. Mild emphysema. A stable 6 mm subpleural nodule on the right minor fissure on image 148.. No new or suspicious pulmonary nodules. IMPRESSION: 1. No evidence for a pulmonary embolus. 2. No change in the dilated, fluid-filled, and thickened esophagus to the level the gastroesophageal junction. This could be due to achalasia. Endoscopy can be performed for confirmation. 3. Progressive mucoid secretions within the bronchi with partial opacification of the distal bronchi within the lower lobes, right greater than left. There is also progressive patchy irregular densities and tree-in-bud nodular opacities within the lung bases, right greater than left. This favors an infectious bronchiolitis and is likely due to aspiration. 4. Emphysema. 5. Additional findings as described above. ACT 112: Negative or not required by law. Electronically signed by: Jermaine Rivas M.D. 03/17/2022 2:47 PM Discharge Plan Visit Data Chief Complaint: Shortness of Breath/Dyspnea Stated Complaint: SOB, WEAKNESS ED Provider: Lion Alfonso Discharge Problem: Aspiration pneumonia, DUNG (acute kidney injury), Severe protein-calorie malnutrition, Oropharyngeal candidiasis, Thrombocytosis Patient Disposition: Admitted As Inpatient Discharge Instructions Interventions: ED Discharge Assessment Last Done: 03/17/22 16:05
--- NOTE | 2022-03-17 14:42 | CT Scan Report ---
ABDOMEN AND PELVIS CT WITH IV CONTRAST HISTORY: Acute chest and abdominal pain with nausea and vomiting abd pain,n/v TECHNIQUE: Multiaxial CT images of the abdomen and pelvis were performed following the IV administrat ion of 108 cc of Optiray, A dose lowering technique was utilized adhering to the principles of ALARA . COMPARISON STUDY: CTA chest of same day, CT abdomen and pelvis 10/06/2021 FINDINGS: Limited exam secondary to cachectic body habitus and lack of intra-abdominal fat, worsened from the prior study. Bibasilar predominant mucus plugging with patchy bibasilar groundglass/consolid ative and tree-in-bud nodular opacities. No pneumatosis or pneumoperitoneum. Calcific granulomata of the spleen. Unremarkable adrenal glands and visualized pancreas. The gallblad josé is within normal limits. The liver is mildly enlarged. Patency of the hepatic and portal veins. N o hepatic mass identified. Unremarkable kidneys. No hydronephrosis. Nonspecific urinary bladder wall thickening. Prostamegaly. Fat and fluid filled small right inguinal hernia. Atherosclerosis of the ao rta without aneurysm. No lymphadenopathy identified. Fluid-filled distended distal esophagus with narrowed gastroesophageal junction redemonstrated. Moder ate rectal fecal retention. No bowel obstruction or bowel wall thickening identified. Mild colonic fe devendra retention. Visualized appendix appears noninflamed. Stool-filled terminal ileum. The previously n oted prominent gastrohepatic lymph nodes are not definitively seen on today's study. Mild generalized body wall edema. No acute fracture or destructive bone lesion identified. IMPRESSION: 1. Limited exam, notably secondary to cachectic body habitus and lack of intra-abdominal fat, worsene d from the prior study. 2. Mucous plugging with bibasilar opacities compatible with an infectious or inflammatory pneumonitis . Correlate clinically to exclude aspiration. 3. Distended mildly fluid-filled distal esophagus with narrowing at the gastroesophageal junction is similar to the 28/10/2021 study. Findings could be correlated with endoscopy. 4. No bowel obstruction or bowel wall thickening. 5. Prostamegaly with findings suggestive of chronic bladder outlet obstruction. 6. Additional findings as above. ACT 112: Negative or not required by law. The above report was generated using voice recognition software. It may contain grammatical, syntax o r spelling errors. Electronically signed by: Irineo Antonio M.D. 03/17/2022 2:41 PM
--- NOTE | 2022-03-17 14:48 | CT Scan Report ---
CHEST CTA for PULMONARY ARTERIES CT DOSE: 576.80 mGy.cm HISTORY: Shortness of breath, hypoxia, r/o PE TECHNIQUE: Multiaxial CT images of the chest were performed following the intravenous administration of contrast to evaluate the pulmonary arteries. Maximal intensity projection images were also obtaine d. A dose lowering technique was utilized adhering to the principles of ALARA. COMPARISON STUDY: Chest CT 10/06/2021. FINDINGS: Limited views of the upper abdomen demonstrate a normal liver and adrenal glands. There are few punctate calcified granulomas within the spleen. The thyroid gland enhances normally. Dilated, f luid-filled, thickened esophagus is again noted. This is similar to the prior study. The heart is nor mal in size. No pleural or pericardial effusions. No mediastinal or hilar lymphadenopathy. Normal devendra iber thoracic aorta with no evidence for a dissection. No filling defects within the pulmonary arteri es to suggest a pulmonary embolus. No pneumothorax. Small amount of mucoid material within the distal trachea. There is partial opacification of the bronchus intermedius. Mild diffuse bronchiectasis. Op acified distal right lower lobe bronchi. There is partial opacification of multiple distal lingular a nd right middle lobe bronchi with patchy irregular densities within the lung bases with associated tr ee-in-bud nodular opacities most pronounced on the right. No pneumothorax. Mild emphysema. A stable 6 mm subpleural nodule on the right minor fissure on image 148.. No new or suspicious pulmonary nodule s. IMPRESSION: 1. No evidence for a pulmonary embolus. 2. No change in the dilated, fluid-filled, and thickened esophagus to the level the gastroesophageal junction. This could be due to achalasia. Endoscopy can be performed for confirmation. 3. Progressive mucoid secretions within the bronchi with partial opacification of the distal bronchi within the lower lobes, right greater than left. There is also progressive patchy irregular densities and tree-in-bud nodular opacities within the lung bases, right greater than left. This favors an inf ectious bronchiolitis and is likely due to aspiration. 4. Emphysema. 5. Additional findings as described above. ACT 112: Negative or not required by law. Electronically signed by: Jermaine Rivas M.D. 03/17/2022 2:47 PM
[2022-03-17] MEDS ORDERED: ONDANSETRON INJ 2 MG/ML 2 ML VIAL IV PRN (16:04)
[2022-03-17] MEDS ORDERED: ALBUT/IPRATROP 3MG/0.5MG NEB 3 ML VIAL NEB PRN (16:04)
[2022-03-17] MEDS ORDERED: ACETAMINOPHEN 325 MG TAB PO PRN (16:04)
--- NOTE | 2022-03-17 16:09 | Electrocardiogram Report ---
Test Reason : Blood Pressure : / mmHG Vent. Rate : 109 BPM Atrial Rate : 109 BPM P-R Int : 140 ms QRS Dur : 082 ms QT Int : 344 ms P-R-T Axes : 086 -24 069 degrees QTc Int : 463 ms Poor data quality, interpretation may be adversely affected Sinus tachycardia Minimal voltage criteria for LVH, may be normal variant Minor Nonspecific ST abnormality Anterolateral leads Abnormal ECG When compared with ECG of 06-OCT-2021 10:31, No significant change Confirmed by Jose Francisco Diaz ([id number]) on 03/17/2022 4:09:36 PM Referred By: REFERRED SELF Confirmed By:Jose Francisco Diaz
[2022-03-17] MEDS: D5W AND NSS 1,000 ML IV SCH (16:19)
--- NOTE | 2022-03-17 16:25 | History & Physical Report ---
Date of Service March 17, 2022 Assessment & Plan (1) Aspiration pneumonia: Plan: Admit to med/surg Patient presenting from home with reports of generalized weakness and shortness of breath. Hx of achalasia with frequent vomiting. In the ED, CTA chest negative for PE but shows signs of aspiration pneumonia and mucous plugging. WBC 30K, otherwise stable and saturating well on room air s/p Zosyn in the ED, continue with Given no wheezing on exam and no O2 requirement, will hold on steroids at this time Follow blood cultures, fungal cultures ordered as well Pulmonary toilet with nebs, IS, and flutter valve (2) Achalasia: (3) Oropharyngeal candidiasis: Plan: 09/2021 underwent EGD that was suggestive of achalasia. Nodule noted at GEJ junction that was negative for metaplasia, dysplasia, and malignancy however showed extensive candidal esophagitis and candidal gastritis. Patient was treated with fluconazole. Patient followed up with GI as an outpatient and had a barium swallow done that again favored achalasia. Patient was referred for surgery evaluation however due to lack of insurance, patient was lost to follow- up. Thick plaques noted on tongue and posterior palate - will start IV fluconazole and swish/spit Nystatin NPO IV PPI BID GI consult, discussed with Maggie Magana PA-C. Definitive treatment will need to be arranged. (4) Severe protein-calorie malnutrition: Plan: Patient severely emaciated due to ongoing GI losses Ultimately needs definitive treatment of achalasia Consult placed to start PPN. Will need to monitor closely for refeeding syndrome. (5) DUNG (acute kidney injury): Plan: Creat 1.5 (up from 0.6) Pre renal due to dehydration from ongoing GI loss IVF, follow renal functions (6) Thrombocytosis: Plan: Platelets 615K, likely reactive Follow CBC DVT PROPHYLAXIS SQ Heparin Admission and Anticipated Discharge Date Admission Date: March 17, 2022 History of Present Illness Chief Complaint: Weakness, Shortness of Breath Primary Care Provider: Mal Leung DO 57 year olf male with PMH achalasia, tobacco abuse, severe malnutrition, and other problems listed below who presents to the ED for evaluation of generalized weakness and shortness of breath. Patient admitted to [facility] 09/2021 after presenting for intractable vomiting and 100 pound weight loss. Patient underwent EGD that was suggestive of achalasia. Nodule noted at GEJ junction that was negative for metaplasia, dysplasia, and malignancy however showed extensive candidal esophagitis and candidal gastritis. Patient was treated with fluconazole. Patient followed up with GI as an outpatient and had a barium swallow done that again favored achalasia. Patient was referred for surgery evaluation however due to lack of insurance, patient was lost to follow-up. Patient presents today with 2 days of generalized weakness and exertional shortness of breath. Patient reports shortness of breath with minimal exertion. Patient also states he has a chronic cough which is unchanged from baseline. Patient's nutritional intake typically includes water, milk, pudding, cream of chicken soup. Patient reports vomiting after almost every time he eats. He denies abdominal pain. No fevers or chills. Denies chest pain palpitations. No lightheadedness, dizziness, diaphoresis, syncopal events. He denies urinary symptoms. In the ED, patient is hemodynamically stable and is saturating well on room air. Labs show WBC 31 K, platelet count 615K, creatinine 1.5. CTA chest negative for PE however shows no change in the dilated, fluid-filled, and thickened esophagus to the level the gastroesophageal junction. This could be due to achalasia. Progressive mucoid secretions within the bronchi with partial opacification of the distal bronchi within the lower lobes, right greater than left. There is also progressive patchy irregular densities and tree-in-bud nodular opacities within the lung bases, right greater than left. This favors an infectious bronchiolitis and is likely due to aspiration. Patient was given nebulizer treatment, IV famotidine, IV Solu-Medrol, IV Zofran, IV Zosyn, IVF. Allergies Allergy/AdvReac Type Severity Reaction Status Date / Time mushroom AdvReac Intermediate Hives Verified 03/17/22 15:16 Home Medications Medication Instructions Recorded Confirmed Type No Known Home Medications 03/17/22 03/17/22 History Past Med/Surg History Medical History (Updated 03/17/22 @ 16:48 by KERWIN Nowak) Achalasia Tobacco abuse Surgical History No pertinent past surgical history Family History Mother , 55 [place] Myocardial infarction Diabetes Father , 77 -[place]+ Myocardial infarction Diabetes Brother , [place] - 50s Myocardial infarction Brother No problems noted. Social History Smoking Status: Current every day smoker Tobacco Type: Cigarettes packs per day: 1; Second Hand Exposure: No; Hx Alcohol Use: Yes Alcohol type: hard liquor Alcohol type Comment: Holidays only Hx Substance Use: No Preferred Language: Armenian Communication Ability: Effective Associate Professor Of Criminal Justice Required: No Beliefs That Will Affect Care: None marital status: Single Current Living Situation: Family Current Living Situation Comment: Lives with Brother Feels Safe at Home: Yes Assistive Devices: None Review of Systems Review of Systems: ROS per HPI, all other systems reviewed and negative Physical Exam Constitutional: + ill appearing, + cachectic and + malnourished; no acute distress Eyes: PERRL, conjunctivae normal, anicteric sclerae ENMT: Ears: no external ear abnormality Nose: no external nose abnormality Mouth: + poor dentition thick white plaques noted over tongue and posterior palate Respiratory: normal respiratory effort; no respiratory distress Auscultation: + diminished lung sounds; no wheezes Cardiovascular: Rate/Rhythm: regular rate and regular rhythm Vessels: normal peripheral pulses Extremities: no edema Gastrointestinal (Abdomen): normal bowel sounds, soft, nontender, no hepatosplenomegaly Musculoskeletal: no cyanosis or clubbing, extremities motor strength 5/5 Skin: no rashes, warm and dry Neurologic: PERRL, EOMI, accommodation nl, no face palsy, no dysarthria Psychiatric: A+Ox3, euthymic affect Results & Data Results & Data ([facility]) Vital Signs (Past 12 Hours) Vital Signs Temp Pulse Pulse Resp BP BP Pulse Ox 03/17/22 16:02 81 19 123/79 94 03/17/22 14:17 79 19 109/77 97 03/17/22 12:44 36.6 C 114 H 19 94/76 L 92 03/17/22 12:43 107 H 19 99 03/17/22 12:32 36.6 C 101 H 19 94/76 L 99 03/17/22 12:32 O2 Del Method 03/17/22 16:02 Room Air 03/17/22 14:17 Room Air 03/17/22 12:44 Room Air 03/17/22 12:43 Room Air 03/17/22 12:32 Room Air 03/17/22 12:32 Room Air Laboratory Results Short CBC 03/17/22 Range/Units 12:25 WBC 31.85 H* (4.8-10.8) K/ul Hgb 16.7 (14.0-18.0) g/dl Hct 50.3 (42.0-52.0) % Plt Count 615 H (130-400) K/uL BMP 03/17/22 12:25 Sodium 136 Potassium 3.7 Chloride 93 L Carbon Dioxide 32 BUN 28 H Creatinine 1.53 H Glucose 114 H Calcium 9.5 Liver Function 03/17/22 Range/Units 12:25 Total Bilirubin 0.6 (0.2-1.0) mg/dl Direct Bilirubin 0.1 (0-0.2) mg/dl AST 12 L (13-39) U/L ALT 5 L (7-52) U/L Alkaline Phosphatase 104 (34-104) U/L Albumin 3.4 (3.4-5.0) gm/dl Diagnostic Findings Chest X-Ray 03/17/22 12:23 XR chest 1V portable HISTORY: 57 years-old Male Chest pain, nonspecific acute shortness of breath with chest pain COMPARISON: Chest radiograph and CTA chest the 2021 TECHNIQUE: AP view of the chest FINDINGS: Cardiomediastinal and hilar silhouettes are within normal limits. Atherosclerosis of the aorta. No pleural effusion or overt pulmonary edema. There is a linear lucency of the lateral left midlung. Scattered calcified granulomata of the spleen. Degenerative changes of the shoulders and spine. IMPRESSION: 1. Linear lucency of the lateral left midlung is suggestive of a skin fold. A pneumothorax is considered much less likely. 2. No airspace consolidation to suggest pneumonia. ACT 112: Negative or not required by law. The above report was generated using voice recognition software. It may contain grammatical, syntax or spelling errors. Electronically signed by: Irineo Antonio M.D. 03/17/2022 1:14 PM Abdomen/Pelvis CT 03/17/22 13:[address] WITH IV CONTRAST HISTORY: Acute chest and abdominal pain with nausea and vomiting abd pain,n/v TECHNIQUE: Multiaxial CT images of the abdomen and pelvis were performed following the IV administration of 108 cc of Optiray, A dose lowering technique was utilized adhering to the principles of ALARA. COMPARISON STUDY: CTA chest of same day, CT abdomen and pelvis 10/06/2021 FINDINGS: Limited exam secondary to cachectic body habitus and lack of intra- abdominal fat, worsened from the prior study. Bibasilar predominant mucus plugging with patchy bibasilar groundglass/consolidative and tree-in-bud nodular opacities. No pneumatosis or pneumoperitoneum. Calcific granulomata of the spleen. Unremarkable adrenal glands and visualized pancreas. The gallbladder is within normal limits. The liver is mildly enlarged. Patency of the hepatic and portal veins. No hepatic mass identified. Unremarkable kidneys. No hydronephrosis. Nonspecific urinary bladder wall thickening. Prostamegaly. Fat and fluid filled small right inguinal hernia. Atherosclerosis of the aorta without aneurysm. No lymphadenopathy identified. Fluid-filled distended distal esophagus with narrowed gastroesophageal junction redemonstrated. Moderate rectal fecal retention. No bowel obstruction or bowel wall thickening identified. Mild colonic fecal retention. Visualized appendix appears noninflamed. Stool-filled terminal ileum. The previously noted prominent gastrohepatic lymph nodes are not definitively seen on today's study. Mild generalized body wall edema. No acute fracture or destructive bone lesion identified. IMPRESSION: 1. Limited exam, notably secondary to cachectic body habitus and lack of intra- abdominal fat, worsened from the prior study. 2. Mucous plugging with bibasilar opacities compatible with an infectious or inflammatory pneumonitis. Correlate clinically to exclude aspiration. 3. Distended mildly fluid-filled distal esophagus with narrowing at the gastroesophageal junction is similar to the 28/10/2021 study. Findings could be correlated with endoscopy. 4. No bowel obstruction or bowel wall thickening. 5. Prostamegaly with findings suggestive of chronic bladder outlet obstruction. 6. Additional findings as above. ACT 112: Negative or not required by law. The above report was generated using voice recognition software. It may contain grammatical, syntax or spelling errors. Electronically signed by: Irineo Antonio M.D. 03/17/2022 2:41 PM Chest CTA 03/17/22 13:28 CHEST CTA for PULMONARY ARTERIES CT DOSE: 576.80 mGy.cm HISTORY: Shortness of breath, hypoxia, r/o PE TECHNIQUE: Multiaxial CT images of the chest were performed following the intravenous administration of contrast to evaluate the pulmonary arteries. Maximal intensity projection images were also obtained. A dose lowering technique was utilized adhering to the principles of ALARA. COMPARISON STUDY: Chest CT 10/06/2021. FINDINGS: Limited views of the upper abdomen demonstrate a normal liver and adrenal glands. There are few punctate calcified granulomas within the spleen. The thyroid gland enhances normally. Dilated, fluid-filled, thickened esophagus is again noted. This is similar to the prior study. The heart is normal in size. No pleural or pericardial effusions. No mediastinal or hilar lymphadenopathy. Normal caliber thoracic aorta with no evidence for a dissection. No filling defects within the pulmonary arteries to suggest a pulmonary embolus. No pneumothorax. Small amount of mucoid material within the distal trachea. There is partial opacification of the bronchus intermedius. Mild diffuse bronchiectasis. Opacified distal right lower lobe bronchi. There is partial opacification of multiple distal lingular and right middle lobe bronchi with pa tchy irregular densities within the lung bases with associated tree-in-bud nodular opacities most pronounced on the right. No pneumothorax. Mild emphysema. A stable 6 mm subpleural nodule on the right minor fissure on image 148.. No new or suspicious pulmonary nodules. IMPRESSION: 1. No evidence for a pulmonary embolus. 2. No change in the dilated, fluid-filled, and thickened esophagus to the level the gastroesophageal junction. This could be due to achalasia. Endoscopy can be performed for confirmation. 3. Progressive mucoid secretions within the bronchi with partial opacification of the distal bronchi within the lower lobes, right greater than left. There is also progressive patchy irregular densities and tree-in-bud nodular opacities within the lung bases, right greater than left. This favors an infectious bronchiolitis and is likely due to aspiration. 4. Emphysema. 5. Additional findings as described above. ACT 112: Negative or not required by law. Electronically signed by: Jermaine Rivas M.D. 03/17/2022 2:47 PM Code Status & VTE Plan Code Status Patient is a full code as per my discussion with him. VTE Prophylaxis Plan VTE Prophylaxis will be ordered: Yes Supervising Physician Co-Signing Physician Notes I have seen and examined the patient and have discussed the case with the provider above. I agree with the assessment and plan as stated. The patient is a 57-year-old man who presents with significant weakness especially over the last week. He has a history of esophageal dysphagia with a history of significant candidal infection treated last fall. He is an ongoing smoker who reports losing his medical insurance and therefore not being able to follow-up with the surgical referral outpatient as was recommended post EGD for treatment of achalasia. He returns today reporting persistent vomiting and is severely malnourished. He reports not brushing his teeth for the past 3 weeks because he had no money to buy a toothbrush. He has recently come upon having health insurance although he is not certain of the details as his brother helped him get this. He does not know what his coverage entails. He was consented for HIV testing. He denies any pain today. He denies fevers or chills. Physical exam reveals a very cachectic patient in no acute distress. The has temporal wasting, sunken supraclavicular fossae, decreased adipose stores. ENT evaluation reveals poor dentition and a caked whitish film throughout his tongue and in his posterior pharynx. He is in no acute distress and is normal mentation. Cardiac exam reveals S1-S2 heard with no murmurs and a regular rate and rhythm. Lungs are clear to auscultation bilaterally. Abdomen is very thin and wasted but nontender nondistended. Extremities are cachectic and moves symmetrically. There is no gross focal neurologic deficit. CBC reveals a leukocytosis of 32 K, H&H of 16.7/50.3, platelet count of 615 and a left shift. Renal failure is present with a BUN of 28 and creatinine of 1.53. Chemistry reflects dehydration with a sodium of 136, potassium 3.7, chloride 93. Glucose is 114. Lactate is 1.6. Phosphorus is 3.1, mag 2.3 liver panel is unremarkable aside from an elevated protein of 8.9 with a globulin gap of 5.5. Procalcitonin is elevated at 0.51 lipase is normal. Imaging includes negative for pulmonary embolus with no change in the dilated fluid-filled and thickened esophagus to the level of the GE junction that is suspicious for achalasia. There is evidence of pneumonia versus bronchiolitis secondary to aspiration in the background of emphysema. A CT of the abdomen pelvis with IV contrast reveals mucous plugging in bibasilar pulmonary opacities. 1. Severe malnutrition with risk of refeeding syndrome 2. Esophageal motility disorder such as possible achalasia 3. Esophageal candidiasis 4. Aspiration pneumonia 5. Acute renal failure 6. Hyperproteinemia 7. Tobacco use, ongoing Agree with hospitalizing this patient with failure to thirve 2/2 inability to tolerate PO. Treat underlying aspiration pneumonia with coverage for possible gram negative organisms. Suport with oxygen if needed. smoking cessation strongly advised. Consult nutrition and weigh out benefits of early parenteral nutrition given his severity of malnutrition. Monitor closely for refeeding syndrome with serial phos as he is rehydrated. Gastroenterology consult for definitive management of his esophageal dysfunction including consideration of Botox injections into the LES vs myotomy. Appears to be a poor surgical candidate. Agree with fluconazole given the inability of the patient to swallow. We can give this IV for the time being. Fungal blood culture added. I explained to him the very serious nature of his condition and that he could d iet from such severe malnutrition. He verbalized understanding and expressed appreciation for any help we could provide. Anil, DO
[2022-03-17] MEDS: NICOTINE 7 MG/24 HR TDSY TD SCH (16:56)
--- NOTE | 2022-03-17 17:02 | Communication Note ---
Date of Service: March 17, 2022 ATTENDING ADDENDUM: The patient is a 57-year-old man who presents with significant weakness especially over the last week. He has a history of esophageal dysphagia with a history of significant candidal infection treated last fall. He is an ongoing smoker who reports losing his medical insurance and therefore not being able to follow-up with the surgical referral outpatient as was recommended post EGD for treatment of achalasia. He returns today reporting persistent vomiting and is severely malnourished. He reports not brushing his teeth for the past 3 weeks because he had no money to buy a toothbrush. He has recently come upon having health insurance although he is not certain of the details as his brother helped him get this. He does not know what his coverage entails. He was consented for HIV testing. He denies any pain today. He denies fevers or chills. Physical exam reveals a very cachectic patient in no acute distress. The has temporal wasting, sunken supraclavicular fossae, decreased adipose stores. ENT evaluation reveals poor dentition and a caked whitish film throughout his tongue and in his posterior pharynx. He is in no acute distress and is normal mentation. Cardiac exam reveals S1-S2 heard with no murmurs and a regular rate and rhythm. Lungs are clear to auscultation bilaterally. Abdomen is very thin and wasted but nontender nondistended. Extremities are cachectic and moves symmetrically. There is no gross focal neurologic deficit. CBC reveals a leukocytosis of 32 K, H&H of 16.7/50.3, platelet count of 615 and a left shift. Renal failure is present with a BUN of 28 and creatinine of 1.53. Chemistry reflects dehydration with a sodium of 136, potassium 3.7, chloride 93. Glucose is 114. Lactate is 1.6. Phosphorus is 3.1, mag 2.3 liver panel is unremarkable aside from an elevated protein of 8.9 with a globulin gap of 5.5. Procalcitonin is elevated at 0.51 lipase is normal. Imaging includes negative for pulmonary embolus with no change in the dilated fluid-filled and thickened esophagus to the level of the GE junction that is suspicious for achalasia. There is evidence of pneumonia versus bronchiolitis secondary to aspiration in the background of emphysema. A CT of the abdomen pelvis with IV contrast reveals mucous plugging in bibasilar pulmonary opacities. 1. Severe malnutrition with risk of refeeding syndrome 2. Esophageal motility disorder such as possible achalasia 3. Esophageal candidiasis 4. Aspiration pneumonia 5. Acute renal failure 6. Hyperproteinemia 7. Tobacco use, ongoing Agree with hospitalizing this patient with failure to thirve 2/2 inability to tolerate PO. Treat underlying aspiration pneumonia with coverage for possible gram negative organisms. Suport with oxygen if needed. smoking cessation strongly advised. Consult nutrition and weigh out benefits of early parenteral nutrition given his severity of malnutrition. Monitor closely for refeeding syndrome with serial phos as he is rehydrated. Gastroenterology consult for definitive management of his esophageal dysfunction including consideration of Botox injections into the LES vs myotomy. Appears to be a poor surgical candidate. Agree with fluconazole given the inability of the patient to swallow. We can give this IV for the time being. Fungal blood culture added. I explained to him the very serious nature of his condition and that he could diet from such severe malnutrition. He verbalized understanding and expressed appreciation for any help we could provide. Anil, DO
[2022-03-17] MEDS ORDERED: TPN/PPN CONSULT PHARMACY STA ×3 (17:20→18:25)
[2022-03-17] MEDS ORDERED: MULTI-VITAMIN INFUSION 10 ML, THIAMINE HCL 100 MG, FOLIC ACID 1 MG in SODIUM CHLORIDE 0... IV ONE (17:30)
[2022-03-17] MEDS ORDERED: TPN/PPN CONSULT PHARMACY PRN (17:38)
[2022-03-17] MEDS: FLUCONAZOLE 200 MG/100 ML BAG IV SCH (18:19)
[2022-03-17] MEDS: PANTOprazole 40 MG in SYRINGE 0 ML IV SCH (20:28)
[2022-03-17] MEDS: NYSTATIN SUSP 500,000 U/5 ML UDC PO SCH (20:28)
[2022-03-17] MEDS: PIPERACILLIN/TAZOBACTAM 3.375 GM in DEXTROSE 5% 100 ML IV SCH (23:00)
[2022-03-17] MEDS: HEPARIN SOD 5,000 UNIT/0.5 ML VIAL SQ SCH (23:00)
[2022-03-17] MEDS ORDERED: Nursing to Pharmacy Communication SCH (23:30)
[2022-03-18] MEDS: PIPERACILLIN/TAZOBACTAM 3.375 GM in DEXTROSE 5% 100 ML IV SCH (05:30)
[2022-03-18] MEDS: D5W AND NSS 1,000 ML IV SCH ×2 (05:31→17:46)
[2022-03-18 08:18] LABS: Hematocrit (blood only) 37.3 % (42.0-52.0); Hemoglobin 12.1 g/dl (14.0-18.0); Mean Corpuscular Hgb Conc 32.4 g/dL (32.0-36.0); Mean Corpuscular Volume 92.3 fL (80.0-100.0); Mean Platelet Volume 10.3 fL (9.4-12.4); Platelet Count 401 K/uL (130-400); RDW Coefficient of Variation 13.8 % (11.5-14.5); RDW Standard Deviation 46.8 fL (36.4-46.3); Red Blood Count 4.04 M/uL (4.70-6.10); White Blood Count 21.35 K/ul (4.8-10.8)
[2022-03-18 08:23] LABS: BUN Creatinine Ratio 19.2 (10-20); Bilirubin,Total 0.5 mg/dl (0.2-1.0); Calcium 8.2 mg/dl (8.5-10.1); Creatinine Clr Calc Pharmacy 45.5 ml/min; Est GFR (African American) 74.1 ml/min; Magnesium 2.1 mg/dl (1.7-2.4); Phosphorus 3.5 mg/dl (2.5-4.9); Potassium 3.6 mmol/L (3.5-5.1)
--- NOTE | 2022-03-18 08:23 | Gastrointestinal Consultation ---
Date of Consultation March 18, 2022 Assessment & Plan (1) Achalasia: (2) Aspiration pneumonia: (3) Oropharyngeal candidiasis: (4) Severe protein-calorie malnutrition: Plan This is a 57 y/o male w/ h/o tobacco use, recurrent vomiting/regurgitation and weight loss, prior w/u last year w/ suspected achalasia and pt was lost to follow-up. Currently admitted with suspected aspiration PNA, ongoing regurgitation/vomiting, suspected candidiasis, and malnutrition. Appears extremely cachectic on exam; resting comfortably, NAD. - Pt is currently NPO, awaiting nutrition eval for consideration of alternative feeding methods - Pt is able to tolerate liquids so perhaps could consider liquid diet w/ aspiration precautions if PO intake is advised - IV antifungal for suspected laurie - IV ABX for suspected PNA - Will need to have definitive tx for his achalasia (likely myotomy vs endoscopic procedure); pt has not yet had manometry and has not had visit with [facility] as ordered from last GI visit; he tells me he doesn't drive or have a car but he has family to take him to appts; will need to sort out how to best facilitate this for him after discussing w/ endoscopist and schedulers Thank you for allowing us to participate in the care of this patient. Please call with any acute changes, questions or concerns. Please see addendum below with additional recommendation from my supervising physician. Supervising Physician Co-Signing Physician Notes I saw and evaluated the patient. We were consulted for suspected achalasia. This patient has been seen by a number of my partners in the past and had a number of studies arranged to include a motility study. Unfortunately the patient has not yet been able to make these appointments for make an appointment for minimally invasive surgery to pursue significant psychosocial disparities. The patient is quite emaciated at this point and seems to be worsening in overall health. Physical examination Cachectic appearing male no abdominal tenderness noted Impression: Patient with a history and findings highly suggestive of achalasia. I did discuss his care with his normal GI provider, unfortunately we do not have a motility diagnosis of achalasia at this time as the patient has not been able to undergo a motility study for formal diagnosis. Locally her only potential treatment option for him would be Botox injection however this would make definitive management with myotomy more challenging. Thus I think it would be in the patient's best interest to have an inpatient referral to tertiary [facility] where a procedure such as Endoflip could be considered and definitive therapy for achalasia performed given his overall worsening status. History of Present Illness Reason for Consultation: achalasia Requesting Physician: KERWIN Nowak Attending Physician: Jose Canseco MD History of Present Illness This is a 57 y/o male pt w/ h/o tobacco use, w/ h/o nausea, vomiting, weight loss, hospitalization in 09/2021 for such. CTAP at that time showed esophageal narrowing at the GE junction, mildly enlarged gastrohepatic nodes, moderate constipation, and CT of the chest showed dilated esophagus without obvious mass. Patient had EGD with biopsy on 10/07/2021 - found inflammatory changes and evidence of severe esophageal candidiasis, and findings suggestive of achalasia. Patient prescribed fluconazole 400 mg once and then 200 mg once daily x3 weeks. Lab studies showed elevated white blood count at 23,000 with no fever, blood cultures and urine cultures negative. He was referred to GI nutrition for the weight loss but he no-showed that appt. He followed-up with GI as OP in 12/2021 - where UGI was ordered and showed severe stenosis at the GE jxn w/ dilated esophagus and delayed emptying of contrast - favoring achalasia. He was then referred for manometry and minimally invasive surgery to consider myotomy vs endoscopic approach to tx his suspected achalasia, however - he was lost to follow-up as he didn't have insurance. Now admitted again after presenting with weakness, persistent vomiting and malnutrition. He now has health insurance per the pt. He appeared very cachectic on exam w/ caked whitish film in the oral cavity. Labs significant for leukocytosis w/ WBC 32k, elevated procal, DUNG, normal LFTs and lipase, HGB, CT chest w/ no change in the dilated fluid-filled and thickened esophagus to the level of the GE junction that is suspicious for achalasia. There is evidence of pneumonia versus bronchiolitis secondary to aspiration in the background of emphysema. A CT of the abdomen pelvis with IV contrast reveals mucous plugging in bibasilar pulmonary opacities. He was placed on IV fluconazole and also tx for suspected aspiration PNA w/ IV ABX. BC pending. HIV test pending. Nutrition eval for parental nutrition is being ordered. He tells me he is able to tolerate thick and thin liquids; such as apple juice, milk, Ensure, even pudding, but solid food gets vomited/regurgitated on a regular basis. He denies coughing/choking after swallowing. He has no abd pain, chest pain, fever. Bowels move infrequently, small amts; no melena, hemat ochezia. He continues to smoke tobacco. UGI 01/2022: Severe stenosis at the gastroesophageal junction resulting in a dilated esophagus with significant delayed emptying of contrast. This favors achalasia. Endoscopy recommended to exclude the possibility of underlying mass. EGD 09/2021: Findings: There was particulate food matter and liquid in the hypopharynx. The entire esophagus was encrusted with food, beginning at the UES and extending to the GE junction at 40 cm. Most of this food was pushed into the stomach using lavage and a cap. The esophagus was markedly dilated with markedly diminished peristalsis. The mucosa of the esophagus was mildly red and atrophic, but otherwise unremarkable. The GE junction was at 40 cm. The GEJ was snug to intubation. There was mild maycol-circumferential plaque like nodularity at the GE junction. This was visible both on forward view and extended into the cardia on retroflexion. This was soft to probing with a biopsy forceps. Although the pit pattern with NBI examination did appear advanced, this seems more likely a "sentinel fold;" I cannot rule out neoplasia. EMR was not done to avoid stricturing that might interfere with endoscopic achalasia therapy; biopsies of the nodule were done. The stomach and duodenum was normal. Impression: Exam suggestive of achalasia. Nodule at GEJ that may be inflammatory or neoplastic, biopsied. FINAL DIAGNOSIS A. Esophagus, EGJ 6:00,biopsy: - Candidal esophagitis - Negative for intestinal metaplasia, dysplasia and malignancy B. Esophagus, EGJ 3:00biopsy: - Candidal esophagitis - Negative for intestinal metaplasia, dysplasia and malignancy C. Stomach, cardia, biopsy: - Candidal gastritis - Negative for intestinal metaplasia, dysplasia and malignancy Comment: The biopsies showextensivefungal involvement with the cardia biopsy showing the most prominent hyphae and spores. Allergies Allergy/AdvReac Type Severity Reaction Status Date / Time mushroom AdvReac Intermediate Hives Verified 03/17/22 15:16 Home Medications Medication Instructions Recorded Confirmed Type No Known Home Medications 03/17/22 03/17/22 History Patient History Medical History (Updated 03/18/22 @ 02:25 by Lion Alfonso MD) Achalasia Tobacco abuse Surgical History No pertinent past surgical history Family History Mother , 55 [place] Myocardial infarction Diabetes Father , 77 -[place]+ Myocardial infarction Diabetes Brother , [place] - 50s Myocardial infarction Brother No problems noted. Social History Smoking Status: Light tobacco smoker Tobacco Type: Cigarettes packs per day: 1; Second Hand Exposure: No; Hx Alcohol Use: Yes Alcohol type: hard liquor Alcohol type Comment: Holidays only Hx Substance Use: No Preferred Language: Thai Communication Ability: Effective Insurance Sales Producer Required: No Beliefs That Will Affect Care: None marital status: Single Current Living Situation: Family Current Living Situation Comment: lives with brother Feels Safe at Home: Yes Assistive Devices: None Review of Systems Review of Systems: All systems reviewed & are unremarkable except as noted in HPI & below Physical Exam Constitutional: comfortable (cachectic with diffuse muscle wasting; chronically ill appearing ); no acute distress Eyes: Sclera anicteric, no conjunctival injection ENMT: moist mucous membranes, no pallor Neck: trachea midline supple Respiratory: normal resp effort; diminished lung sounds diffusely w/ occasional rhonchi Cardiovascular: RRR, no murmur, no edema Gastrointestinal (Abdomen): normal bowel sounds, soft, nontender, no hepatosplenomegaly Inspection/Auscultation: abdomen not distended Skin: no rashes, warm and dry Neurologic: alert and oriented x 3, no obvious focal neuro deficit Psychiatric: normal mood and affect Results & Data ([facility]) Vital Signs (Past 12 Hours) Vital Signs Temp Pulse Resp BP Pulse Ox O2 Del Method 03/18/22 07:22 36.3 C L 74 18 100/63 96 Room Air Laboratory Results 03/18/22 03/18/22 03/18/22 Range/Units 07:33 07:33 06:19 WBC 21.35 H (4.8-10.8) K/ul RBC 4.04 L (4.70-6.10) M/uL Hgb 12.1 L D (14.0-18.0) g/dl Hct 37.3 L (42.0-52.0) % MCV 92.3 (80.0-100.0) fL MCH 30.0 (25.0-34.0) pg MCHC 32.4 (32.0-36.0) g/dL RDW Std Deviation 46.8 H (36.4-46.3) fL RDW Coeff of Marcelo 13.8 (11.5-14.5) % Plt Count 401 H (130-400) K/uL MPV 10.3 (9.4-12.4) fL Immature Gran % (Auto) % Neut % (Auto) % Lymph % (Auto) % Tucker % (Auto) % Eos % (Auto) % Baso % (Auto) % Neut # (Auto) (1.40-6.50) K/uL Lymph # (Auto) (1.2-3.4) K/uL Tucker # (Auto) (0.11-0.59) K/uL Eos # (Auto) (0-0.50) K/uL Baso # (Auto) (0-0.2) K/uL Immature Gran # (Auto) (0.01-0.20) K/uL Sodium Pending (136-145) mmol/L Potassium Pending (3.5-5.1) mmol/L Chloride Pending (98-107) mmol/L Carbon Dioxide Pending (21-32) mmol/L Anion Gap Pending (3-11) BUN Pending (6-23) mg/dl Creatinine Pending (0.6-1.4) mg/dl Est Cr Clr Drug Dosing Pending ml/min Est GFR ( Amer) Pending ml/min Est GFR (Non-Af Amer) Pending ml/min BUN/Creatinine Ratio Pending (10-20) Glucose Pending (70-99(Fasting)) mg/dl POC Glucose 208 H (70-99) mg/dl Lactate (0.4-2.0) mmol/L Calcium Pending (8.5-10.1) mg/dl Phosphorus Pending (2.5-4.9) mg/dl Magnesium Pending (1.7-2.4) mg/dl Total Bilirubin Pending (0.2-1.0) mg/dl Direct Bilirubin (0-0.2) mg/dl AST Pending (13-39) U/L ALT Pending (7-52) U/L Alkaline Phosphatase Pending (34-104) U/L Troponin I High Sens (0-20) pg/ml Total Protein (6.0-8.3) gm/dl Albumin (3.4-5.0) gm/dl Globulin (2.5-4.0) gm/dl Albumin/Globulin Ratio (0.9-2) Triglycerides Pending Lipase (11-82) U/L Procalcitonin (0-0.5) ng/ml SARS-CoV-2 (PCR) (Negative) HIV (1&2) Ag & Ab Conf Influenza Type A (PCR) (Neg) Influenza Type B (PCR) (Neg) RSV (RT-PCR) (Neg) 03/18/22 03/17/22 03/17/22 Range/Units 00:05 19:01 14:29 WBC (4.8-10.8) K/ul RBC (4.70-6.10) M/uL Hgb (14.0-18.0) g/dl Hct (42.0-52.0) % MCV (80.0-100.0) fL MCH (25.0-34.0) pg MCHC (32.0-36.0) g/dL RDW Std Deviation (36.4-46.3) fL RDW Coeff of Marcelo (11.5-14.5) % Plt Count (130-400) K/uL MPV (9.4-12.4) fL Immature Gran % (Auto) % Neut % (Auto) % Lymph % (Auto) % Tucker % (Auto) % Eos % (Auto) % Baso % (Auto) % Neut # (Auto) (1.40-6.50) K/uL Lymph # (Auto) (1.2-3.4) K/uL Tucker # (Auto) (0.11-0.59) K/uL Eos # (Auto) (0-0.50) K/uL Baso # (Auto) (0-0.2) K/uL Immature Gran # (Auto) (0.01-0.20) K/uL Sodium (136-145) mmol/L Potassium (3.5-5.1) mmol/L Chloride (98-107) mmol/L Carbon Dioxide (21-32) mmol/L Anion Gap (3-11) BUN (6-23) mg/dl Creatinine (0.6-1.4) mg/dl Est Cr Clr Drug Dosing ml/min Est GFR ( Amer) ml/min Est GFR (Non-Af Amer) ml/min BUN/Creatinine Ratio (10-20) Glucose (70-99(Fasting)) mg/dl POC Glucose 120 H (70-99) mg/dl Lactate 1.6 (0.4-2.0) mmol/L Calcium (8.5-10.1) mg/dl Phosphorus 3.5 (2.5-4.9) mg/dl Magnesium (1.7-2.4) mg/dl Total Bilirubin (0.2-1.0) mg/dl Direct Bilirubin (0-0.2) mg/dl AST (13-39) U/L ALT (7-52) U/L Alkaline Phosphatase (34-104) U/L Troponin I High Sens (0-20) pg/ml Total Protein (6.0-8.3) gm/dl Albumin (3.4-5.0) gm/dl Globulin (2.5-4.0) gm/dl Albumin/Globulin Ratio (0.9-2) Triglycerides Lipase (11-82) U/L Procalcitonin (0-0.5) ng/ml SARS-CoV-2 (PCR) (Negative) HIV (1&2) Ag & Ab Conf Influenza Type A (PCR) (Neg) Influenza Type B (PCR) (Neg) RSV (RT-PCR) (Neg) 03/17/22 03/17/22 03/17/22 Range/Units 12:25 12:25 12:25 WBC (4.8-10.8) K/ul RBC (4.70-6.10) M/uL Hgb (14.0-18.0) g/dl Hct (42.0-52.0) % MCV (80.0-100.0) fL MCH (25.0-34.0) pg MCHC (32.0-36.0) g/dL RDW Std Deviation (36.4-46.3) fL RDW Coeff of Marcelo (11.5-14.5) % Plt Count (130-400) K/uL MPV (9.4-12.4) fL Immature Gran % (Auto) % Neut % (Auto) % Lymph % (Auto) % Tucker % (Auto) % Eos % (Auto) % Baso % (Auto) % Neut # (Auto) (1.40-6.50) K/uL Lymph # (Auto) (1.2-3.4) K/uL Tucker # (Auto) (0.11-0.59) K/uL Eos # (Auto) (0-0.50) K/uL Baso # (Auto) (0-0.2) K/uL Immature Gran # (Auto) (0.01-0.20) K/uL Sodium (136-145) mmol/L Potassium (3.5-5.1) mmol/L Chloride (98-107) mmol/L Carbon Dioxide (21-32) mmol/L Anion Gap (3-11) BUN (6-23) mg/dl Creatinine (0.6-1.4) mg/dl Est Cr Clr Drug Dosing ml/min Est GFR ( Amer) ml/min Est GFR (Non-Af Amer) ml/min BUN/Creatinine Ratio (10-20) Glucose (70-99(Fasting)) mg/dl POC Glucose (70-99) mg/dl Lactate (0.4-2.0) mmol/L Calcium (8.5-10.1) mg/dl Phosphorus (2.5-4.9) mg/dl Magnesium (1.7-2.4) mg/dl Total Bilirubin (0.2-1.0) mg/dl Direct Bilirubin (0-0.2) mg/dl AST (13-39) U/L ALT (7-52) U/L Alkaline Phosphatase (34-104) U/L Troponin I High Sens (0-20) pg/ml Total Protein (6.0-8.3) gm/dl Albumin (3.4-5.0) gm/dl Globulin (2.5-4.0) gm/dl Albumin/Globulin Ratio (0.9-2) Triglycerides Lipase (11-82) U/L Procalcitonin 0.51 H (0-0.5) ng/ml SARS-CoV-2 (PCR) NEGATIVE (Negative) HIV (1&2) Ag & Ab Conf Pending Influenza Type A (PCR) Negative (Neg) Influenza Type B (PCR) Negative (Neg) RSV (RT-PCR) Negative (Neg) 03/17/22 03/17/22 Range/Units 12:25 12:25 WBC 31.85 H* (4.8-10.8) K/ul RBC 5.55 (4.70-6.10) M/uL Hgb 16.7 (14.0-18.0) g/dl Hct 50.3 (42.0-52.0) % MCV 90.6 (80.0-100.0) fL MCH 30.1 (25.0-34.0) pg MCHC 33.2 (32.0-36.0) g/dL RDW Std Deviation 45.9 (36.4-46.3) fL RDW Coeff of Marcelo 13.8 (11.5-14.5) % Plt Count 615 H (130-400) K/uL MPV 10.5 (9.4-12.4) fL Immature Gran % (Auto) 0.7 % Neut % (Auto) 85.3 % Lymph % (Auto) 10.0 % Tucker % (Auto) 3.6 % Eos % (Auto) 0.1 % Baso % (Auto) 0.3 % Neut # (Auto) 27.20 H (1.40-6.50) K/uL Lymph # (Auto) 3.18 (1.2-3.4) K/uL Tucker # (Auto) 1.14 H (0.11-0.59) K/uL Eos # (Auto) 0.03 (0-0.50) K/uL Baso # (Auto) 0.09 (0-0.2) K/uL Immature Gran # (Auto) 0.21 H (0.01-0.20) K/uL Sodium 136 (136-145) mmol/L Potassium 3.7 (3.5-5.1) mmol/L Chloride 93 L (98-107) mmol/L Carbon Dioxide 32 (21-32) mmol/L Anion Gap 11 (3-11) BUN 28 H (6-23) mg/dl Creatinine 1.53 H (0.6-1.4) mg/dl Est Cr Clr Drug Dosing 35.3 ml/min Est GFR ( Amer) 58.1 ml/min Est GFR (Non-Af Amer) 50.1 ml/min BUN/Creatinine Ratio 18.3 (10-20) Glucose 114 H (70-99(Fasting)) mg/dl POC Glucose (70-99) mg/dl Lactate (0.4-2.0) mmol/L Calcium 9.5 (8.5-10.1) mg/dl Phosphorus 3.1 (2.5-4.9) mg/dl Magnesium 2.3 (1.7-2.4) mg/dl Total Bilirubin 0.6 (0.2-1.0) mg/dl Direct Bilirubin 0.1 (0-0.2) mg/dl AST 12 L (13-39) U/L ALT 5 L (7-52) U/L Alkaline Phosphatase 104 (34-104) U/L Troponin I High Sens 11.8 (0-20) pg/ml Total Protein 8.9 H (6.0-8.3) gm/dl Albumin 3.4 (3.4-5.0) gm/dl Globulin 5.5 H (2.5-4.0) gm/dl Albumin/Globulin Ratio 0.6 L (0.9-2) Triglycerides Lipase 41 (11-82) U/L Procalcitonin (0-0.5) ng/ml SARS-CoV-2 (PCR) (Negative) HIV (1&2) Ag & Ab Conf Influenza Type A (PCR) (Neg) Influenza Type B (PCR) (Neg) RSV (RT-PCR) (Neg) Diagnostic Findings CXR: 1. Linear lucency of the lateral left midlung is suggestive of a skin fold. A pneumothorax is considered much less likely. 2. No airspace consolidation to suggest pneumonia. CTAP: FINDINGS: Limited exam secondary to cachectic body habitus and lack of intra- abdominal fat, worsened from the prior study. Bibasilar predominant mucus plugging with patchy bibasilar groundglass/consolidative and tree-in-bud nodular opacities. No pneumatosis or pneumoperitoneum. Calcific granulomata of the spleen. Unremarkable adrenal glands and visualized pancreas. The gallbladder is within normal limits. The liver is mildly enlarged. Patency of the hepatic and portal veins. No hepatic mass identified. Unremarkable kidneys. No hydronephrosis. Nonspecific urinary bladder wall thickening. Prostamegaly. Fat and fluid filled small right inguinal hernia. Atherosclerosis of the aorta without aneurysm. No lymphadenopathy identified. Fluid-filled distended distal esophagus with narrowed gastroesophageal junction redemonstrated. Moderate rectal fecal retention. No bowel obstruction or bowel wall thickening identified. Mild colonic fecal retention. Visualized appendix appears noninflamed. Stool-filled terminal ileum. The previously noted prominent gastrohepatic lymph nodes are not definitively seen on today's study. Mild generalized body wall edema. No acute fracture or destructive bone lesion identi fied. IMPRESSION: 1. Limited exam, notably secondary to cachectic body habitus and lack of intra- abdominal fat, worsened from the prior study. 2. Mucous plugging with bibasilar opacities compatible with an infectious or inflammatory pneumonitis. Correlate clinically to exclude aspiration. 3. Distended mildly fluid-filled distal esophagus with narrowing at the gastroesophageal junction is similar to the 28/10/2021 study. Findings could be correlated with endoscopy. 4. No bowel obstruction or bowel wall thickening. 5. Prostamegaly with findings suggestive of chronic bladder outlet obstruction. 6. Additional findings as above. CT chest: FINDINGS: Limited views of the upper abdomen demonstrate a normal liver and adrenal glands. There are few punctate calcified granulomas within the spleen. The thyroid gland enhances normally. Dilated, fluid-filled, thickened esophagus is again noted. This is similar to the prior study. The heart is normal in size. No pleural or pericardial effusions. No mediastinal or hilar lymphadenopathy. Normal caliber thoracic aorta with no evidence for a dissection. No filling defects within the pulmonary arteries to suggest a pulmonary embolus. No pneumot horax. Small amount of mucoid material within the distal trachea. There is partial opacification of the bronchus intermedius. Mild diffuse bronchiectasis. Opacified distal right lower lobe bronchi. There is partial opacification of multiple distal lingular and right middle lobe bronchi with patchy irregular densities within the lung bases with associated tree-in-bud nodular opacities most pronounced on the right. No pneumothorax. Mild emphysema. A stable 6 mm subpleural nodule on the right minor fissure on image 148.. No new or suspicious pulmonary nodules. IMPRESSION: 1. No evidence for a pulmonary embolus. 2. No change in the dilated, fluid-filled, and thickened esophagus to the level the gastroesophageal junction. This could be due to achalasia. Endoscopy can be performed for confirmation. 3. Progressive mucoid secretions within the bronchi with partial opacification of the distal bronchi within the lower lobes, right greater than left. There is also progressive patchy irregular densities and tree-in-bud nodular opacities within the lung bases, right greater than left. This favors an infectious bronchiolitis and is likely due to aspiration. 4. Emphysema. 5. Additional findings as described above.
[2022-03-18] MEDS: THIAMINE HCL 100 MG in SYRINGE 9 ML IV SCH (09:23)
[2022-03-18] MEDS: NYSTATIN SUSP 500,000 U/5 ML UDC PO SCH ×3 (09:23→20:34)
[2022-03-18] MEDS: PANTOprazole 40 MG in SYRINGE 0 ML IV SCH ×2 (09:23→20:35)
[2022-03-18] MEDS: NICOTINE 7 MG/24 HR TDSY TD SCH (09:24)
[2022-03-18] MEDS: HEPARIN SOD 5,000 UNIT/0.5 ML VIAL SQ SCH ×2 (09:24→20:34)
[2022-03-18] MEDS: FOLIC ACID 1 MG in SYRINGE 9.8 ML IV SCH (09:25)
--- NOTE | 2022-03-18 14:01 | Hospitalist Progress Note ---
Date of Service March 18, 2022 Assessment & Plan (1) Aspiration pneumonia: Plan: Admit to med/surg Patient presenting from home with reports of generalized weakness and shortness of breath. Hx of achalasia with frequent vomiting. In the ED, CTA chest negative for PE but shows signs of aspiration pneumonia and mucous plugging. Blood cell count improving to 21,000 De-escalate antibiotics to IV Unasyn Supplemental oxygen as needed Pulmonary toilet with nebs, IS, and flutter valve Follow blood cultures (2) Achalasia: (3) Oropharyngeal candidiasis: Plan: 09/2021 underwent EGD that was suggestive of achalasia. Nodule noted at GEJ junction that was negative for metaplasia, dysplasia, and malignancy however showed extensive candidal esophagitis and candidal gastritis. Patient was treated with fluconazole. Patient followed up with GI as an outpatient and had a barium swallow done that again favored achalasia. Patient was referred for surgery evaluation however due to lack of insurance, patient was lost to follow-up. Thick plaques noted on tongue and posterior palate - Continue IV fluconazole and swish/spit Nystatin NPOFor Botox procedure in a.m. IV PPI BID GI consult, discussed with Maggie Magana PA-C Per GI recommendation was transfer to tertiary center; however, after four-way call patient was denied and recommended treatment was Botox at our facility with outpatient follow-up and management (4) Severe protein-calorie malnutrition: Plan: Patient severely emaciated due to inability to tolerate oral intake/achalasia Consult placed to start PPN. Will need to monitor closely for refeeding syndrome. (5) DUNG (acute kidney injury): Plan: on admission creat 1.5 Pre renal due to dehydration from ongoing GI loss Continue IV fluids, creatinine proved today to 1.25 (6) Anemia: Plan: H&H 12.1 and 37.3 after hydration Low MCV and MCH Given degree of malnutrition we will add iron studies, B12 and folic acid for a.m. (7) Thrombocytosis: Plan: Platelets 615K on admission today 401 likely reactive Follow CBC DVT PROPHYLAXIS SQ Heparin Dispo: remain hospitalized, NPO after 1800 for botox inj tomorrow FULL CODE Pt was seen and examined in collaboration with Dr. Canseco, please see addendum A total of 45 minutes were spent with greater than 50% of that time face to face with the patient, personally reviewing all current laboratories, imaging studies, past medication reconciliation, outpatient chart review, and discussion with specialists to collaborate care for the patient with attending. Please see attending documentation for corrections and/or additions. Admission and Anticipated Discharge Date Admission Date: March 17, 2022 Supervising Physician Co-Signing Physician Notes Attending Addendum: care coordinated with EMILEE Fuentes. please refer to her notes for full details, I agree with her notes patient seen and examined, records reviewed by myself as well on exam, patient seen resting in bed, comfortable denies abdominal pain, nausea tolerating full liquids well ASSESSMENT AND PLAN agree with diagnoses and plan of care as per EMILEE Fuentes's notes Jose Canseco MD Subjective Patient was seen and examined in room 378. Follow-up achalasia and malnutrition. He is currently sitting up in bed and offers no acute concerns. He denies fever, chills, sweats, lightheadedness, dizziness, chest pain, shortness of breath, nausea, vomiting, abdominal pain. Currently he is n.p.o. He denies any cough or difficulty breathing. Review of Systems Review of Systems: All systems reviewed & are unremarkable except as noted in HPI & below Physical Exam Physical Exam: Gen: Emaciated male, cachectic, malnourished NAD, A&O x3 HEENT: Normocephalic, atraumatic, conjunctivae moist, sclerae anicteric, mucous membranes dry with white patches noted throughout Lung: Clear to Auscultation bilaterally, no wheezes/rales/rhonchi Heart: Regular rate, regular rhythm, no murmurs, rubs, or gallops Abdomen: Soft, NT, ND +BS x 4 Extremities: No edema Skin: Warm, dry, no rash, negative turgor. Results & Data Results & Data ([facility]) Vital Signs (Past 12 Hours) Vital Signs Temp Pulse Resp BP Pulse Ox O2 Del Method 03/18/22 07:22 36.3 C L 74 18 100/63 96 Room Air Laboratory Results Short CBC 03/18/22 Range/Units 07:33 WBC 21.35 H (4.8-10.8) K/ul Hgb 12.1 L D (14.0-18.0) g/dl Hct 37.3 L (42.0-52.0) % Plt Count 401 H (130-400) K/uL BMP 03/18/22 07:33 Sodium 141 Potassium 3.6 Chloride 106 Carbon Dioxide 29 BUN 24 H Creatinine 1.25 Glucose 90 Calcium 8.2 L Liver Function 03/18/22 Range/Units 07:33 Total Bilirubin 0.5 (0.2-1.0) mg/dl AST 13 (13-39) U/L ALT 4 L (7-52) U/L Alkaline Phosphatase 71 (34-104) U/L Medications Administered Current Inpatient Medications Acetaminophen (Acetaminophen 325 Mg Tab) 650 mg PO Q4H PRN PRN Reason: pain/fever Stop: 04/16/22 16:03 Albuterol (Albut/Ipratrop 3mg/0.5mg Neb 3 Ml Vial) 3 ml NEB Q4R PRN; Protocol PRN Reason: shortness of breath Stop: 04/16/22 16:03 Heparin Sodium (Porcine) (Heparin Sod 5,000 Unit/0.5 Ml Vial) 5,000 units SQ Q12 [facility] Stop: 04/16/22 20:59 Last Admin: 03/18/22 09:24 Dose: 5,000 units Dextrose/Sodium Chloride (D5w And Nss) 1,000 mls @ 80 mls/hr IV .[id number] [facility] Stop: 04/16/22 16:03 Last Admin: 03/18/22 05:31 Dose: 80 mls/hr Pantoprazole Sodium 40 mg/ (Syringe) 10 mls @ 5 mls/min IV BID [facility]AL Stop: 04/16/22 20:59 Last Admin: 03/18/22 09:23 Dose: 5 mls/min Thiamine HCl 100 mg/ Syringe 10 mls @ 2 mls/min IV QAM [facility] Stop: 04/17/22 08:59 Last Admin: 03/18/22 09:23 Dose: 2 mls/min Folic Acid 1 mg/ Syringe 10 mls @ 5 mls/min IV QAM [facility] Stop: 04/17/22 08:59 Last Admin: 03/18/22 09:25 Dose: 5 mls/min Fluconazole (Diflucan) 200 mg in 100 mls @ 100 mls/hr IV Q24H [facility]; Protocol Stop: 03/27/22 17:59 Last Infusion: 03/17/22 20:03 Dose: Infused Ampicillin Sodium/Sulbactam Sodium 3,000 mg/ Sodium Chloride 108 mls @ 216 mls/hr IV Q6H [facility] Stop: 03/24/22 19:59 Miscellaneous (Remove Nicoderm Patch) 1 each N/A DAILY@0859 [facility] Stop: 04/17/22 08:58 Last Admin: 03/18/22 09:24 Dose: 1 each Miscellaneous Information (Tpn/Ppn Consult Pharmacy) 1 each N/A UD PRN PRN Reason: Consult Stop: 04/16/22 17:37 Nicotine (Nicotine 7 Mg/24 Hr Tdsy) 7 mg TD QAM [facility] Stop: 04/16/22 16:14 Last Admin: 03/18/22 09:24 Dose: 7 mg Nystatin (Nystatin Susp 500,000 U/5 Ml Udc) 10 ml PO TID [facility] Stop: 04/16/22 20:59 Last Admin: 03/18/22 09:23 Dose: 10 ml Ondansetron HCl (Ondansetron Inj 2 Mg/Ml 2 Ml Vial) 4 mg IV Q6H PRN PRN Reason: Nausea Stop: 04/16/22 16:03
[2022-03-18] MEDS: AMPICILLIN/SULBACTAM SOD 3,000 MG in 0.9 % SODIUM CHLORIDE 100 ML IV SCH ×2 (14:38→20:44)
--- NOTE | 2022-03-18 15:53 | Communication Note ---
Date of Service: March 18, 2022 Initially we had recommended pt be considered for transfer to tertiary facility where he could be more thoroughly evaluated and receive definitive tx for his achalasia. After discussion with the transfer center at [facility] it appears pt not accepted for transfer and it was decided that instead the pt will be kept here and we will perform EGD tomorrow with Botox inj to tx his suspected achalasia and plan OP f/u after that.
[2022-03-18] MEDS: FLUCONAZOLE 200 MG/100 ML BAG IV SCH (17:46)
[2022-03-19] MEDS: AMPICILLIN/SULBACTAM SOD 3,000 MG in 0.9 % SODIUM CHLORIDE 100 ML IV SCH ×4 (01:44→20:10)
[2022-03-19] MEDS: D5W AND NSS 1,000 ML IV SCH ×2 (05:52→17:18)
[2022-03-19 08:24] LABS: Basophils # (auto) 0.03 K/uL (0-0.2); Basophils % (auto) 0.3 %; Eosinophils # (auto) 0.02 K/uL (0-0.50); Eosinophils % (auto) 0.2 %; Hematocrit (blood only) 35.4 % (42.0-52.0); Hemoglobin 11.5 g/dl (14.0-18.0); Immature Granulocytes # (auto) 0.08 K/uL (0.01-0.20); Immature Granulocytes % (auto) 0.7 %; Lymphocytes # (auto) 3.21 K/uL (1.2-3.4); Lymphocytes % (auto) 26.8 %; Mean Corpuscular Hemoglobin 30.1 pg (25.0-34.0); Mean Corpuscular Hgb Conc 32.5 g/dL (32.0-36.0); Mean Corpuscular Volume 92.7 fL (80.0-100.0); Mean Platelet Volume 10.2 fL (9.4-12.4); Monocytes # (auto) 0.68 K/uL (0.11-0.59); Monocytes % (auto) 5.7 %; Neutrophils # (auto) 7.98 K/uL (1.40-6.50); Neutrophils % (auto) 66.3 %; Platelet Count 346 K/uL (130-400); RDW Coefficient of Variation 13.7 % (11.5-14.5); RDW Standard Deviation 46.7 fL (36.4-46.3); Red Blood Count 3.82 M/uL (4.70-6.10)
[2022-03-19 08:34] LABS: BUN Creatinine Ratio 17.1 (10-20); Calcium 7.9 mg/dl (8.5-10.1); Creatinine Clr Calc Pharmacy 51.2 ml/min; Est GFR (African American) 85.6 ml/min; Est GFR (Non-African American) 73.8 ml/min; Potassium 3.4 mmol/L (3.5-5.1)
[2022-03-19] MEDS: NYSTATIN SUSP 500,000 U/5 ML UDC PO SCH ×3 (08:46→20:10)
[2022-03-19] MEDS: PANTOprazole 40 MG in SYRINGE 0 ML IV SCH ×2 (08:47→20:11)
[2022-03-19] MEDS: FOLIC ACID 1 MG in SYRINGE 9.8 ML IV SCH (08:47)
[2022-03-19] MEDS: THIAMINE HCL 100 MG in SYRINGE 9 ML IV SCH (08:47)
[2022-03-19] MEDS: NICOTINE 7 MG/24 HR TDSY TD SCH (08:47)
[2022-03-19] MEDS: HEPARIN SOD 5,000 UNIT/0.5 ML VIAL SQ SCH ×2 (08:48→20:12)
[2022-03-19 08:54] LABS: Ferritin 688.9 ng/ml (8-388)
[2022-03-19] MEDS ORDERED: POTASSIUM CHLORIDE / WTR 10 MEQ/100 ML PLCT IV SCH (09:00)
[2022-03-19] MEDS ORDERED: BOTULINUM TOXIN TYPE A 100 UNIT VIAL IM ONE (10:00)
[2022-03-19] MEDS ORDERED: ePHEDrine sulfate 50 MG/ML AMP IV PRN (10:51)
[2022-03-19] MEDS ORDERED: ATROPINE SULFATE 0.1 MG/ML 10ML SYR IV PRN (10:51)
--- NOTE | 2022-03-19 10:51 | Anesthesiology Consultation ---
Date of Service March 19, 2022 Assessment & Plan Chart Review Chart Review: Acceptable Risk for Surgery and Patient NOT seen in Pre Admission Testing Consults Requested none ASA ASA4 Proposed Anesthesia Anesthesia Type: MAC Risk / Benefits Reviewed With: PT / POA / Parent / Guardian, Accepts Plan and Informed Consent Obtained History Surgery Operation Date: 03/19/22 16:30 Proposed Procedures p Esophagogastroduodenoscopy Dr Justin Anderson, DO Height/Weight Height: 5 ft 10 in Weight: 48.7 kg Allergies Allergy/AdvReac Type Severity Reaction Status Date / Time mushroom AdvReac Intermediate Hives Verified 03/17/22 15:16 Medications Home Medications Medication Instructions Recorded Confirmed Last Taken No Known Home Medications 03/17/22 03/17/22 Unknown Active Medications Generic Name Dose Route Start Last Admin Trade Name Freq PRN Reason Stop Dose Admin Heparin Sodium (Porcine) 5,000 units 03/17/22 21:00 03/19/22 08:48 Heparin Sod 5,000 Unit/0.5 Ml Vial SQ 04/16/22 20:59 5,000 units Q12 CORAL Administration Dextrose/Sodium Chloride 1,000 mls @ 80 mls/hr 03/17/22 16:04 03/19/22 05:52 D5w And Nss IV 04/16/22 16:03 80 mls/hr .[id number] [facility] Administration Pantoprazole Sodium 40 mg/ 10 mls @ 5 mls/min 03/17/22 21:00 03/19/22 08:47 Syringe IV 04/16/22 20:59 5 mls/min BID CORAL Administration Thiamine HCl 100 mg/ Syringe 10 mls @ 2 mls/min 03/18/22 09:00 03/19/22 08:47 IV 04/17/22 08:59 2 mls/min QAM CORAL Administration Folic Acid 1 mg/ Syringe 10 mls @ 5 mls/min 03/18/22 09:00 03/19/22 08:47 IV 04/17/22 08:59 5 mls/min QAM CORAL Administration Fluconazole 200 mg in 100 mls @ 100 mls/hr 03/17/22 18:00 03/18/22 19:11 Diflucan IV 03/27/22 17:59 Infused Q24H [facility] Infusion Protocol Ampicillin Sodium/Sulbactam 108 mls @ 216 mls/hr 03/18/22 14:00 03/19/22 08:45 Sodium 3,000 mg/ Sodium IV 03/24/22 19:59 216 mls/hr Chloride Q6H [facility] Administration Miscellaneous 1 each 03/18/22 08:59 03/19/22 08:45 Remove Nicoderm Patch N/A 04/17/22 08:58 1 each DAILY@0859 [facility] Administration Nicotine 7 mg 03/17/22 16:15 03/19/22 08:47 Nicotine 7 Mg/24 Hr Tdsy TD 04/16/22 16:14 7 mg QAM CORAL Administration Nystatin 10 ml 03/17/22 21:00 03/19/22 08:46 Nystatin Susp 500,000 U/5 Ml Udc PO 04/16/22 20:59 10 ml TID CORAL Administration NPO Date Last Intake of Fluids: 03/18/22 Time Last Intake of Fluids: 18:00 Date Last Intake of Solids: 03/18/22 Time Last Intake of Solids: 12:00 Past Medical History Medical History Achalasia Tobacco abuse Exercise / Class Metabolic Activity III < 4 Walking/Shop/Light housework Past Family History Family History Mother , 55 [place] Myocardial infarction Diabetes Father , 77 -[place]+ Myocardial infarction Diabetes Brother , [place] - 50s Myocardial infarction Brother No problems noted. Past Surgical History Surgical History No pertinent past surgical history Past Anesthesia History No Hx of Anesthesia Complications and No Family Hx of Anesthesia Complications History of PONV No Hx of PONV and No Hx of Motion Sickness Social History Smoking Status: Current every day smoker tobacco type: cigarettes Hx Alcohol Use: Yes Alcohol type: hard liquor alcohol intake frequency: holidays/special occasions only Hx Substance Use: No Physical Exam Vital Signs Last Vital Signs Temp 36.2 C L 03/19/22 10:28 Pulse 46 L 03/19/22 10:28 Resp 14 03/19/22 10:28 BP 125/70 03/19/22 10:28 Pulse Ox 99 03/19/22 10:28 O2 Del Method 03/19/22 10:28 Constitutional + cachectic; no acute distress ENMT Mouth: + dentition abnormality, + edentulous, + poor dentition, + chipped teeth and + loose teeth Thyromental Distance: > or= 3.5 Finger Breadths Mallampati Class: II Neck normal visual inspection, trachea midline and + facial hair; neck extension not limited Respiratory normal respiratory effort Auscultation: + diminished lung sounds Cardiovascular Rate/Rhythm: regular rate and regular rhythm Heart Sounds: no murmur Musculoskeletal Spine: normal cervical ROM and no pain with cervical ROM Extremities: full ROM of extremities Neurologic moves all extremities Motor/Sensory: no sensory deficit Psychiatric Orientation: alert and oriented x 3 Testing Laboratory Results 03/19/22 07:51 03/19/22 07:51 03/17/22 12:20 Aerobic Blood Culture - Preliminary Blood No growth in Aerobic bottle after 24 hours. Anaerobic Blood Culture - Preliminary No growth in Anaerobic bottle after 24 hours. 03/17/22 14:29 Aerobic Blood Culture - Preliminary Blood No growth in Aerobic bottle after 24 hours. Anaerobic Blood Culture - Preliminary No growth in Anaerobic bottle after 24 hours. 03/17/22 16:31 Fungal Smear - Final Blood Electrocardiogram Date: 03/17/22 Findings: + LVH and + ST @ (@ 109;LVH;minor NS ST abnl anterolat. leads)
--- NOTE | 2022-03-19 11:05 | History & Physical Bridge Note ---
Date of Service March 19, 2022 History & Physical Bridge Note I have examined the patient, reviewed the History & Physical and in the interval since the performance of the History & Physical I have noted the following changes of clinical significance: no changes noted I had initially planned for referral to tertiary care center with Endoflip available and a possible POEM versus myotomy. After discussion with our services they have recommended upper endoscopy, dilation and possible Botox injection for the patient. They are suggesting that we do an outpatient motility study with the intention of following up with their services as an outpatient over the next few months.
--- NOTE | 2022-03-19 11:48 | GI REPORT ---
Patient Name: Harvinder Corey Procedure Date: 03/19/2022 11:12 AM Date of : 1965 Admit Type: Inpatient Age: 57 Gender: Male Attending MD: Raine Anderson DO, Procedure: Upper GI endoscopy Providers: Raine Anderson DO Referring MD: Sona Bennett MD, Mal Leung Indications: Dysphagia, Suspected achalasia, For botulinum toxin injection of achalasia, For balloon dilation of achalasia Medicines: Monitored Anesthesia Care Complications: No immediate complications. Estimated blood loss: Minimal. Estimated Blood Loss: Estimated blood loss was minimal. Procedure: Pre-Anesthesia Assessment: - Prior to the procedure, a History and Physical was performed, and patient medications, allergies and sensitivities were reviewed. The patient's tolerance of previous anesthesia was reviewed. - The risks and benefits of the procedure and the sedation options and risks were discussed with the patient. All questions were answered and informed consent was obtained. - Patient identification and proposed procedure were verified prior to the procedure by the physician, the nurse and the coke wheeler. The procedure was verified in the procedure room. - Pre-procedure physical examination revealed no contraindications to sedation. - ASA Grade Assessment: IV - A patient with severe systemic disease that is a constant threat to life. - After reviewing the risks and benefits, the patient was deemed in satisfactory condition to undergo the procedure. - The anesthesia plan was to use monitored anesthesia care (MAC). - Immediately prior to administration of medications, the patient was re-assessed for adequacy to receive sedatives. - The heart rate, respiratory rate, oxygen saturations, blood pressure, adequacy of pulmonary ventilation, and response to care were monitored throughout the procedure. - The physical status of the patient was re-assessed after the procedure. After obtaining informed consent, the endoscope was passed under direct vision. Throughout the procedure, the patient's blood pressure, pulse, and oxygen saturations were monitored continuously. The Endoscope was introduced through the mouth, and advanced to the third part of duodenum. The upper GI endoscopy was accomplished without difficulty. The patient tolerated the procedure well. Findings: The lumen of the esophagus was severely dilated. No appreciable esophageal motility was noted. In addition, a hypertonic lower esophageal sphincter was found. There was moderate resistance to endoscope advancement into the stomach. The Z-line was regular. The gastroesophageal junction and cardia were normal on retroflexed view. A TTS dilator was passed through the scope. Dilation with an 18-19-20 mm balloon dilator was performed to 20 mm. Area was successfully injected with 100 units botulinum toxin. The entire examined stomach was normal. The examined duodenum was normal. Impression: - Dilation in the entire esophagus. - The examination was suspicious for achalasia. Dilated to 20 mm today. Injected with botulinum toxin. - Normal stomach. - Normal examined duodenum. - No specimens collected. Recommendation: - Return patient to hospital [facility] for ongoing care. - Clear liquid diet today. - Patient to have OP motility study followed by evaluation with [facility] at [facility]. Raine Anderson D.O. Raine Anderson, 03/19/2022 11:48:17 AM This report has been signed electronically. Note Initiated On: 03/19/2022 11:12 AM Number of Addenda: 0 I attest to the content of the Intraoperative Record and orders documented therein, exceptions below {[id number]}
--- NOTE | 2022-03-19 12:01 | Anesthesiology Progress Note ---
Date of Service March 19, 2022 Anesthesia Post Procedure Vital Signs Vital Signs: Temp Pulse Resp BP BP Pulse Ox O2 Del Method 03/19/22 11:58 80 16 81/43 L 91 Room Air 03/19/22 11:43 90 16 104/63 104/63 96 Room Air 03/19/22 10:28 36.2 C L 46 L 14 125/70 99 Room Air 03/19/22 07:20 36.5 C 88 18 105/45 L 96 Room Air 03/18/22 22:31 36.6 C 60 18 130/78 98 Room Air 03/18/22 15:42 84 18 115/76 94 Room Air Transfer of Care Handoff Completed per policy Notes Mental Status: alert / awake / arousable Patient Amnestic to Procedure: Yes Nausea / Vomiting: adequately controlled Pain: adequately controlled Airway Patency, RR, SpO2: stable & adequate BP & HR: stable & adequate Hydration State: stable & adequate Anesthetic Complications: no major complications apparent
[2022-03-19] MEDS: POTASSIUM CHLORIDE / WTR 10 MEQ/100 ML PLCT IV SCH ×2 (13:35→14:31)
--- NOTE | 2022-03-19 14:50 | Hospitalist Progress Note ---
Date of Service March 19, 2022 Assessment & Plan (1) Aspiration pneumonia: Plan: Patient presenting from home with reports of generalized weakness and shortness of breath. Hx of achalasia with frequent vomiting. In the ED, CTA chest negative for PE but shows signs of aspiration pneumonia and mucous plugging. Blood cell count improving - 31.8k -> 21k -> 12k De-escalate antibiotics to IV Unasyn Supplemental oxygen as needed Pulmonary toilet with nebs, IS, and flutter valve Follow blood cultures (2) Achalasia: (3) Oropharyngeal candidiasis: Plan: 09/2021 underwent EGD that was suggestive of achalasia. Nodule noted at GEJ junction that was negative for metaplasia, dysplasia, and malignancy however showed extensive candidal esophagitis and candidal gastritis. Patient was treated with fluconazole. Patient followed up with GI as an outpatient and had a barium swallow done that again favored achalasia. Patient was referred for surgery evaluation however due to lack of insurance, patient was lost to follow-up. Thick plaques noted on tongue and posterior palate - continue IV fluconazole and swish/spit Nystatin GI consulted - initially recommended transfer to tertiary center; however, after four-way call patient was denied and recommended treatment was Botox at our facility with outpatient follow-up and management Underwent EGD with botox today showing dilation of entire esophagus with recommendation for outpatient motility study followed by evjuan ramon with MIS at [facility] [place] Continue IV PPI BID, diet advanced to full liquids (4) Severe protein-calorie malnutrition: Plan: Patient severely emaciated due to inability to tolerate oral intake/achalasia Consult placed to start PPN but preference by RD to hold off if patient able to tolerate full liquids, maintenance fluids Continue IV folate, thiamine, consider addition of multivitamin (5) DUNG (acute kidney injury): Plan: on admission creat 1.5 Pre renal due to dehydration from ongoing GI loss Continue IV fluids, creatinine proved today to 1.25 -> 1.11 (resolving) (6) Anemia: Plan: H&H 12.1 and 37.3 after hydration Low MCV and MCH Given degree of malnutrition, iron studies reflective of inflammatory process/a cute phase reactant. B12 and folic acid WNL Hypokalemia K 3.3 -> replaced. Monitor with daily BMP (7) Thrombocytosis: Plan: Platelets 615K on admission -> normalized today 401 likely reactive Follow CBC DVT PROPHYLAXIS SQ Heparin Dispo: admitted to med/surg FULL CODE Pt was seen and examined in collaboration with Dr. Canseco, please see addendum A total of 50 minutes were spent with greater than 50% of that time face to face with the patient, personally reviewing all current laboratories, imaging studies, past medication reconciliation, outpatient chart review, and discussion with specialists to collaborate care for the patient with attending. Please see attending documentation for corrections and/or additions. Admission and Anticipated Discharge Date Admission Date: March 17, 2022 Supervising Physician Co-Signing Physician Notes Attending Addendum: care coordinated with EMILEE Nava please refer to her notes for full details, I agree with her notes patient seen and examined, records reviewed by myself as well on exam, patient seen resting in bed, comfortable reports he is hungry otherwise, no abdominal pain, nausea/vomiting no other symptoms VS noted and reviewed oriented x 3 , not in distress, speaks in sentences with no effort nor accessory muscle use normal rate, regular rhythm, no murmurs clear breath sounds bilaterally non distended, soft, nontender no bipedal edema, erythema, warmth no neuro deficits all labs noted and reviewed ASSESSMENT AND PLAN diagnoses and plan of care as per EMILEE Nava's notes Jose Canseco MD Subjective Patient was seen and examined in room 378 seen in follow-up for achalasia and malnutrition. Patient resting comfortably without any acute concerns overnight. Was tolerating liquid diet without issue but has been n.p.o. in preparation for EGD with Botox today. Denies fever, chills, sweats, lightheadedness, dizziness, chest pain, shortness of breath, nausea, vomiting or abdominal pain. Denies cough or SOB. 1/2 ppd smoker. Has been NPO since last evening. Review of Systems Review of Systems: ROS per HPI, all other systems reviewed and negative Physical Exam Physical Exam: Gen: Cachectic with temporal wasting noted, NAD, lying in bed, A&Ox3 HEENT: Normocephalic, atraumatic, sclerae anicteric, mucous membranes moist Lung: Coarse lung sounds bilaterally but no wheezing/rales Heart: Regular rate, regular rhythm, no murmurs, rubs, or gallops Abdomen: Soft, NT, ND +BS x 4 Extremities: no edema Skin: Warm, no rash Results & Data Results & Data ([facility]) Vital Signs (Past 12 Hours) Vital Signs Temp Pulse Resp BP BP Pulse Ox O2 Del Method 03/19/22 12:25 71 18 95/60 L 96 Room Air 03/19/22 12:13 89 18 84/54 L 96 Room Air 03/19/22 11:58 80 16 81/43 L 91 Room Air 03/19/22 11:43 90 16 104/63 104/63 96 Room Air 03/19/22 10:28 36.2 C L 46 L 14 125/70 99 Room Air 03/19/22 07:20 36.5 C 88 18 105/45 L 96 Room Air Laboratory Results Short CBC 03/19/22 Range/Units 07:51 WBC 12.00 H (4.8-10.8) K/ul Hgb 11.5 L (14.0-18.0) g/dl Hct 35.4 L (42.0-52.0) % Plt Count 346 (130-400) K/uL BMP 03/19/22 07:51 Sodium 141 Potassium 3.4 L Chloride 110 H Carbon Dioxide 28 BUN 19 Creatinine 1.11 Glucose 70 Calcium 7.9 L Diagnostic Findings Chest X-Ray 03/17/22 12:23 XR chest 1V portable HISTORY: 57 years-old Male Chest pain, nonspecific acute shortness of breath with chest pain COMPARISON: Chest radiograph and CTA chest the 2021 TECHNIQUE: AP view of the chest FINDINGS: Cardiomediastinal and hilar silhouettes are within normal limits. Atherosclerosis of the aorta. No pleural effusion or overt pulmonary edema. There is a linear lucency of the lateral left midlung. Scattered calcified granulomata of the spleen. Degenerative changes of the shoulders and spine. IMPRESSION: 1. Linear lucency of the lateral left midlung is suggestive of a skin fold. A pneumothorax is considered much less likely. 2. No airspace consolidation to suggest pneumonia. ACT 112: Negative or not required by law. The above report was generated using voice recognition software. It may contain grammatical, syntax or spelling errors. Electronically signed by: Irineo Antonio M.D. 03/17/2022 1:14 PM Abdomen/Pelvis CT 03/17/22 13:[address] WITH IV CONTRAST HISTORY: Acute chest and abdominal pain with nausea and vomiting abd pain,n/v TECHNIQUE: Multiaxial CT images of the abdomen and pelvis were performed following the IV administration of 108 cc of Optiray, A dose lowering technique was utilized adhering to the principles of ALARA. COMPARISON STUDY: CTA chest of same day, CT abdomen and pelvis 10/06/2021 FINDINGS: Limited exam secondary to cachectic body habitus and lack of intra- abdominal fat, worsened from the prior study. Bibasilar predominant mucus plugging with patchy bibasilar groundglass/consolidative and tree-in-bud nodular opacities. No pneumatosis or pneumoperitoneum. Calcific granulomata of the spleen. Unremarkable adrenal glands and visualized pancreas. The gallbladder is within normal limits. The liver is mildly enlarged. Patency of the hepatic and portal veins. No hepatic mass identified. Unremarkable kidneys. No hydronephrosis. Nonspecific urinary bladder wall thickening. Prostamegaly. Fat and fluid filled small right inguinal hernia. Atherosclerosis of the aorta without aneurysm. No lymphadenopathy identified. Fluid-filled distended distal esophagus with narrowed gastroesophageal junction redemonstrated. Moderate rectal fecal retention. No bowel obstruction or bowel wall thickening identified. Mild colonic fecal retention. Visualized appendix appears noninflamed. Stool-filled terminal ileum. The previously noted prominent gastrohepatic lymph nodes are not definitively seen on today's study. Mild generalized body wall edema. No acute fracture or destructive bone lesion identified. IMPRESSION: 1. Limited exam, notably secondary to cachectic body habitus and lack of intra- abdominal fat, worsened from the prior study. 2. Mucous plugging with bibasilar opacities compatible with an infectious or inflammatory pneumonitis. Correlate clinically to exclude aspiration. 3. Distended mildly fluid-filled distal esophagus with narrowing at the gastroesophageal junction is similar to the 28/10/2021 study. Findings could be correlated with endoscopy. 4. No bowel obstruction or bowel wall thickening. 5. Prostamegaly with findings suggestive of chronic bladder outlet obstruction. 6. Additional findings as above. ACT 112: Negative or not required by law. The above report was generated using voice recognition software. It may contain grammatical, syntax or spelling errors. Electronically signed by: Irineo Antonio M.D. 03/17/2022 2:41 PM Chest CTA 03/17/22 13:28 CHEST CTA for PULMONARY ARTERIES CT DOSE: 576.80 mGy.cm HISTORY: Shortness of breath, hypoxia, r/o PE TECHNIQUE: Multiaxial CT images of the chest were performed following the intravenous administration of contrast to evaluate the pulmonary arteries. Ma ximal intensity projection images were also obtained. A dose lowering technique was utilized adhering to the principles of ALARA. COMPARISON STUDY: Chest CT 10/06/2021. FINDINGS: Limited views of the upper abdomen demonstrate a normal liver and adrenal glands. There are few punctate calcified granulomas within the spleen. The thyroid gland enhances normally. Dilated, fluid-filled, thickened esophagus is again noted. This is similar to the prior study. The heart is normal in size. No pleural or pericardial effusions. No mediastinal or hilar lymphadenopathy. Normal caliber thoracic aorta with no evidence for a dissection. No filling defects within the pulmonary arteries to suggest a pulmonary embolus. No pneumothorax. Small amount of mucoid material within the distal trachea. There is partial opacification of the bronchus intermedius. Mild diffuse bronchiectasis. Opacified distal right lower lobe bronchi. There is partial opacification of multiple distal lingular and right middle lobe bronchi with patchy irregular densities within the lung bases with associated tree-in-bud nodular opacities most pronounced on the right. No pneumothorax. Mild emphysema. A stable 6 mm subpleural nodule on the right minor fissure on image 148.. No new or suspicious pulmonary nodules. IMPRESSION: 1. No evidence for a pulmonary embolus. 2. No change in the dilated, fluid-filled, and thickened esophagus to the level the gastroesophageal junction. This could be due to achalasia. Endoscopy can be performed for confirmation. 3. Progressive mucoid secretions within the bronchi with partial opacification of the distal bronchi within the lower lobes, right greater than left. There is also progressive patchy irregular densities and tree-in-bud nodular opacities within the lung bases, right greater than left. This favors an infectious bronchiolitis and is likely due to aspiration. 4. Emphysema. 5. Additional findings as described above. ACT 112: Negative or not required by law. Electronically signed by: Jermaine Rivas M.D. 03/17/2022 2:47 PM
[2022-03-19] MEDS: FLUCONAZOLE 200 MG/100 ML BAG IV SCH (17:18)
[2022-03-20] MEDS: AMPICILLIN/SULBACTAM SOD 3,000 MG in 0.9 % SODIUM CHLORIDE 100 ML IV SCH ×4 (01:40→20:43)
[2022-03-20] MEDS: NYSTATIN SUSP 500,000 U/5 ML UDC PO SCH ×3 (09:18→20:35)
[2022-03-20] MEDS: HEPARIN SOD 5,000 UNIT/0.5 ML VIAL SQ SCH ×2 (09:18→20:36)
[2022-03-20] MEDS: PANTOprazole 40 MG in SYRINGE 0 ML IV SCH ×2 (09:18→20:35)
[2022-03-20] MEDS: NICOTINE 7 MG/24 HR TDSY TD SCH (09:19)
[2022-03-20] MEDS: THIAMINE HCL 100 MG in SYRINGE 9 ML IV SCH (09:21)
[2022-03-20] MEDS: FOLIC ACID 1 MG in SYRINGE 9.8 ML IV SCH (09:22)
[2022-03-20] MEDS: D5W AND NSS 1,000 ML IV SCH ×2 (09:23→20:35)
--- NOTE | 2022-03-20 13:21 | Gastroenterology Progress Note ---
Date of Service March 20, 2022 Assessment & Plan (1) Achalasia: (2) Aspiration pneumonia: (3) Oropharyngeal candidiasis: (4) Severe protein-calorie malnutrition: Plan This is a 57 y/o male w/ h/o tobacco use, recurrent vomiting/regurgitation and weight loss, prior w/u last year w/ suspected achalasia and pt was lost to follow-up. Currently admitted with suspected aspiration PNA, ongoing regurgitation/vomiting, suspected candidiasis, and malnutrition. Appears extremely cachectic on exam; resting comfortably, NAD. He underwent EGD yesterday (03/19/22) which demonstrated severe dilation of the esophagus, hypertonic LES suspicious for achalasia and was tx w/ dilation and injected with botulinum toxin. Today feeling much better; tolerating full liquids and wants to eat more. - Can advance diet to soft foods as tolerated - Appreciate nutrition consult; recommend f/u with pt regarding optimizing his nutrition at this point - IV ABX for suspected PNA - Patient to have OP motility study followed by evaluation with MIS at [facility] [place]. Thank you for allowing us to participate in the care of this patient. Please call with any acute changes, questions or concerns. Please see addendum below with additional recommendation from my supervising physician. Admission and Anticipated Discharge Date Admission Date: March 17, 2022 Supervising Physician Co-Signing Physician Notes I saw and evaluated the patient. He reports that he is feeling much improved after having the dilation of the distal esophagus and injection of Botox. He was able to swallow liquids without any difficulty and is to have a mechanical soft diet this evening. The patient will need to follow-up with his regular GI provider, Dr. Dc after his esophageal motility study. Please call with any questions or concerns, GI to sign off Subjective Patient seen and examined, chart reviewed. He feels well today; tolerated clears for dinner last night and had full liquids today including cream of wheat which he tolerated. He is asking for more food. Denies any abd pain, CP, fever, chills, n/v, regurgitation, hematemesis, melena, hematochezia. Had a loose brown BM today. Review of Systems Review of Systems: All systems reviewed & are unremarkable except as noted in HPI & below Physical Exam Constitutional: comfortable (cachectic with diffuse muscle wasting; chronically ill appearing ); no acute distress Neck: trachea midline Cardiovascular: RRR, no murmur, no edema Gastrointestinal (Abdomen): normal bowel sounds, soft, nontender, no hepatosplenomegaly Inspection/Auscultation: abdomen not distended Skin: no rashes, warm and dry Results & Data ([facility]) Vital Signs (Past 12 Hours) Vital Signs Temp Pulse Resp BP Pulse Ox O2 Del Method 03/20/22 07:23 36.4 C L 61 16 143/73 H 100 Room Air Diagnostic Findings EGD 03/19/22: Findings: The lumen of the esophagus was severely dilated. No appreciable esophageal motility was noted. In addition, a hypertonic lower esophageal sphincter was found. There was moderate resistance to endoscope advancement into the stomach. The Z-line was regular. The gastroesophageal junction and cardia were normal on retroflexed view. A TTS dilator was passed through the scope. Dilation with an 18-19-20 mm balloon dilator was performed to 20 mm. Area was successfully injected with 100 units botulinum toxin. The entire examined stomach was normal. The examined duodenum was normal. Impression: - Dilation in the entire esophagus. - The examination was suspicious for achalasia. Dilated to 20 mm today. Injected with botulinum toxin. - Normal stomach. - Normal examined duodenum. - No specimens collected. Recommendation: - Return patient to hospital [facility] for ongoing care. - Clear liquid diet today. - Patient to have OP motility study followed by evaluation with MIS at [facility] [place].
--- NOTE | 2022-03-20 16:40 | Hospitalist Progress Note ---
Date of Service March 20, 2022 Assessment & Plan (1) Aspiration pneumonia: Plan: Patient presenting from home with reports of generalized weakness and shortness of breath. Hx of achalasia with frequent vomiting. In the ED, CTA chest negative for PE but shows signs of aspiration pneumonia and mucous plugging. Blood cell count improving - 31.8k -> 21k -> 12k De-escalate antibiotics to IV Unasyn Supplemental oxygen as needed Pulmonary toilet with nebs, IS, and flutter valve Follow blood cultures (2) Achalasia: (3) Oropharyngeal candidiasis: Plan: 09/2021 underwent EGD that was suggestive of achalasia. Nodule noted at GEJ junction that was negative for metaplasia, dysplasia, and malignancy however showed extensive candidal esophagitis and candidal gastritis. Patient was treated with fluconazole. Patient followed up with GI as an outpatient and had a barium swallow done that again favored achalasia. Patient was referred for surgery evaluation however due to lack of insurance, patient was lost to follow-up. Thick plaques noted on tongue and posterior palate - continue IV fluconazole and swish/spit Nystatin GI consulted - initially recommended transfer to tertiary center; however, after four-way call patient was denied and recommended treatment was Botox at our facility with outpatient follow-up and management Underwent EGD with botox 03/19/2022 showing dilation of entire esophagus with recommendation for outpatient motility study followed [place] jessica [place] [facility] [place] follow-up with Dr. Dc Advancing diet to soft foods per GI. Appreciate nutrition input, continue MV, PPI BID (4) Severe protein-calorie malnutrition: Plan: Patient severely emaciated due to inability to tolerate oral intake/achalasia Consult placed to start PPN but preference by RD to hold off if patient able to tolerate full liquids, maintenance fluids Continue IV folate, thiamine, addition of multivitamin (5) DUNG (acute kidney injury): Plan: on admission creat 1.5 Pre renal due to dehydration from ongoing GI loss Continue IV fluids, creatinine proved today to 1.25 -> 1.11 (resolving) (6) Anemia: Plan: H&H 12.1 and 37.3 after hydration Low MCV and MCH Given degree of malnutrition, iron studies reflective of inflammatory process/acute phase reactant. B12 and folic acid WNL Hypokalemia K 3.3 -> replaced. Monitor with daily BMP (7) Thrombocytosis: Plan: Platelets 615K on admission -> normalized today 401 likely reactive Follow CBC DVT PROPHYLAXIS SQ Heparin Dispo: admitted to med/surg FULL CODE Pt was seen and examined in collaboration with Dr. Canseco, please see addendum A total of 45 minutes were spent with greater than 50% of that time face to face with the patient, personally reviewing all current laboratories, imaging studies, past medication reconciliation, outpatient chart review, and discussion with specialists to collaborate care for the patient with attending. Please see attending documentation for corrections and/or additions. Admission and Anticipated Discharge Date Admission Date: March 17, 2022 Supervising Physician Co-Signing Physician Notes Attending Addendum: care coordinated with EMILEE Nava please refer to her notes for full details, I agree with her notes patient seen and examined, records reviewed by myself as well on exam, patient sitting up in bed, comfortable in good spirits states he would like to have solid food no other symptoms VS noted and reviewed oriented x 3, not in distress, speaks in sentences with no effort nor accessory muscle use normal rate, regular rhythm, no murmurs clear bs bilaterally non distended, soft, nontender no bipedal edema, erythema, warmth no neuro deficits all labs reviewed ASSESSMENT AND PLAN diagnoses and plan of care as per EMILEE Nava's notes Jose Canseco MD Subjective Seen and examined in 378. Feeling much better today after EGD with dilation and Botox. Tolerating clears without issue and sitting upright in bed, feeling more energetic. Endorses urinating and having bowel movements more frequently than at home. Denies any abdominal pain, nausea or vomiting. No fevers, chills, CP, fever, chills, n/v, dysuria, melena. Review of Systems Review of Systems: ROS per HPI, all other systems reviewed and negative Physical Exam Physical Exam: Gen: Cachectic with temporal wasting noted, NAD, sitting up in bed with improved coloring, pleasantly talkative, A&Ox3 HEENT: Normocephalic, atraumatic, sclerae anicteric, mucous membranes moist Lung: Coarse lung sounds bilaterally but no wheezing/rales Heart: Regular rate, regular rhythm, no murmurs, rubs, or gallops Abdomen: Soft, NT, ND +BS x 4 Extremities: no edema Skin: Warm, no rash Results & Data Results & Data ([facility]) Vital Signs (Past 12 Hours) Vital Signs Temp Pulse Resp BP Pulse Ox O2 Del Method 03/20/22 14:40 36.4 C L 82 18 125/76 99 Room Air 03/20/22 07:23 36.4 C L 61 16 143/73 H 100 Room Air
[2022-03-20 17:56] LABS: BUN Creatinine Ratio 18.4 (10-20); Calcium 7.6 mg/dl (8.5-10.1); Creatinine Clr Calc Pharmacy 65.3 ml/min; Est GFR (African American) 111.8 ml/min; Est GFR (Non-African American) 96.5 ml/min; Potassium 3.8 mmol/L (3.5-5.1)
[2022-03-20] MEDS: FLUCONAZOLE 200 MG/100 ML BAG IV SCH (17:57)
[2022-03-21] MEDS: AMPICILLIN/SULBACTAM SOD 3,000 MG in 0.9 % SODIUM CHLORIDE 100 ML IV SCH ×4 (02:22→21:43)
[2022-03-21] MEDS: THIAMINE HCL 100 MG in SYRINGE 9 ML IV SCH (08:59)
[2022-03-21] MEDS: PANTOprazole 40 MG in SYRINGE 0 ML IV SCH ×2 (08:59→20:29)
[2022-03-21] MEDS: NYSTATIN SUSP 500,000 U/5 ML UDC PO SCH ×3 (08:59→20:30)
[2022-03-21] MEDS: MULTIVITAMIN TAB PO SCH (09:00)
[2022-03-21] MEDS: HEPARIN SOD 5,000 UNIT/0.5 ML VIAL SQ SCH ×2 (09:00→20:29)
[2022-03-21] MEDS: FOLIC ACID 1 MG in SYRINGE 9.8 ML IV SCH (09:00)
[2022-03-21] MEDS: NICOTINE 7 MG/24 HR TDSY TD SCH (09:01)
[2022-03-21 09:35] LABS: Hematocrit (blood only) 37.7 % (42.0-52.0); Hemoglobin 12.3 g/dl (14.0-18.0); Mean Corpuscular Hgb Conc 32.6 g/dL (32.0-36.0); Mean Platelet Volume 10.5 fL (9.4-12.4); Platelet Count 354 K/uL (130-400); RDW Coefficient of Variation 13.8 % (11.5-14.5); RDW Standard Deviation 46.3 fL (36.4-46.3); White Blood Count 9.71 K/ul (4.8-10.8)
[2022-03-21 09:49] LABS: Albumin Globulin Ratio 0.7 (0.9-2); Albumin Level 2.4 gm/dl (3.4-5.0); BUN Creatinine Ratio 11.8 (10-20); Bilirubin,Total 0.4 mg/dl (0.2-1.0); Calcium 7.7 mg/dl (8.5-10.1); Creatinine Clr Calc Pharmacy 61.1 ml/min; Est GFR (Non-African American) 91.4 ml/min; Globulin 3.3 gm/dl (2.5-4.0); Potassium 3.3 mmol/L (3.5-5.1); Total Protein 5.7 gm/dl (6.0-8.3)
[2022-03-21] MEDS: D5W AND NSS 1,000 ML IV SCH (10:37)
--- NOTE | 2022-03-21 18:09 | Hospitalist Progress Note ---
Date of Service March 21, 2022 delayed entry date of service noted above Assessment & Plan (1) Aspiration pneumonia: Plan: Per EMILEE Nava's notes with addendum: Patient presenting from home with reports of generalized weakness and shortness of breath. Hx of achalasia with frequent vomiting. In the ED, CTA chest negative for PE but shows signs of aspiration pneumonia and mucous plugging. Blood cell count improving - 31.8k -> 21k -> 12k De-escalate antibiotics to IV Unasyn Supplemental oxygen as needed Pulmonary toilet with nebs, IS, and flutter valve Follow blood cultures 03/21 Afebrile Blood cultures negative Continue Unasyn Tolerating full liquids Continue to monitor (2) Achalasia: (3) Oropharyngeal candidiasis: Plan: 09/2021 underwent EGD that was suggestive of achalasia. Nodule noted at GEJ junction that was negative for metaplasia, dysplasia, and malignancy however showed extensive candidal esophagitis and candidal gastritis. Patient was treated with fluconazole. Patient followed up with GI as an outpatient and had a barium swallow done that again favored achalasia. Patient was referred for surgery evaluation however due to lack of insurance, patient was lost to follow-up. Thick plaques noted on tongue and posterior palate - continue IV fluconazole and swish/spit Nystatin GI consulted - initially recommended transfer to tertiary center; however, after four-way call patient was denied and recommended treatment was Botox at our facility with outpatient follow-up and management Underwent EGD with botox 03/19/2022 showing dilation of entire esophagus with rec ommendation for outpatient motility study followed by jessica with MIS at [facility] and follow-up with Dr. Dc Advancing diet to soft foods per GI. Appreciate nutrition input, continue MV, PPI BID 03/21 Continue fluconazole (4) Severe protein-calorie malnutrition: Plan: Patient severely emaciated due to inability to tolerate oral intake/achalasia Consult placed to start PPN but preference by RD to hold off if patient able to tolerate full liquids, maintenance fluids Continue IV folate, thiamine, addition of multivitamin 03/21 Continue full liquids (5) DUNG (acute kidney injury): Plan: on admission creat 1.5 Pre renal due to dehydration from ongoing GI loss Continue IV fluids, creatinine proved today to 1.25 -> 1.11 (resolving) Improving (6) Anemia: Plan: H&H 12.1 and 37.3 after hydration Low MCV and MCH Given degree of malnutrition, iron studies reflective of inflammatory process/acute phase reactant. B12 and folic acid WNL Hypokalemia Replaced (7) Thrombocytosis: Plan: Platelets 615K on admission -> normalized today 401 likely reactive Follow CBC DVT PROPHYLAXIS SQ Heparin Dispo: admitted to med/surg FULL CODE Pt was seen and examined in collaboration with Dr. Canseco, please see addendum A total of 45 minutes were spent with greater than 50% of that time face to face with the patient, personally reviewing all current laboratories, imaging studies, past medication reconciliation, outpatient chart review, and discussion with specialists to collaborate care for the patient with attending. Please see attending documentation for corrections and/or additions. Admission and Anticipated Discharge Date Admission Date: March 17, 2022 Subjective Follow-up for achalasia, etc. Resting in bed, sitting up, comfortable, in good spirits States he continues to feel improved overall Tolerating full liquids No abdominal pain, chest pain, shortness of breath no other symptoms Review of Systems Review of Systems: all noted and negative except for above Physical Exam Physical Exam: General- oriented x 3, not in distress, speaks in sentences with no effort or accessory muscle use Eyes- anicteric Neck- no JVD Lungs- clear BS bilaterally, no rales/wheezes Heart- normal rate, regular rhythm; no murmurs Abdomen- normal bowel sounds, nondistended, soft, no tenderness Extremities- no pretibial edema, no calf tenderness Neuro- alert, oriented x 3; no gross focal neurologic deficits Skin- warm & dry Results & Data Results & Data ([facility]) Vital Signs (Past 12 Hours) Vital Signs Temp Pulse Resp BP Pulse Ox O2 Del Method 03/21/22 16:41 36.5 C 79 18 133/83 100 Room Air 03/21/22 07:43 36.3 C L 64 18 118/73 100 Room Air all noted and reviewed including below
[2022-03-21] MEDS: FLUCONAZOLE 200 MG/100 ML BAG IV SCH (20:29)
[2022-03-22] MEDS: D5W AND NSS 1,000 ML IV SCH ×2 (00:51→14:59)
[2022-03-22] MEDS: AMPICILLIN/SULBACTAM SOD 3,000 MG in 0.9 % SODIUM CHLORIDE 100 ML IV SCH ×4 (02:40→22:08)
[2022-03-22] MEDS: PANTOprazole 40 MG in SYRINGE 0 ML IV SCH ×2 (08:40→22:12)
[2022-03-22] MEDS: THIAMINE HCL 100 MG in SYRINGE 9 ML IV SCH (08:40)
[2022-03-22] MEDS: NICOTINE 7 MG/24 HR TDSY TD SCH (08:40)
[2022-03-22] MEDS: FOLIC ACID 1 MG in SYRINGE 9.8 ML IV SCH (08:40)
[2022-03-22] MEDS: NYSTATIN SUSP 500,000 U/5 ML UDC PO SCH ×3 (08:40→22:11)
[2022-03-22] MEDS: MULTIVITAMIN TAB PO SCH (08:41)
[2022-03-22] MEDS: HEPARIN SOD 5,000 UNIT/0.5 ML VIAL SQ SCH ×2 (08:41→22:11)
[2022-03-22 10:08] LABS: BUN Creatinine Ratio 10.6 (10-20); Calcium 7.6 mg/dl (8.5-10.1); Creatinine Clr Calc Pharmacy 66.8 ml/min; Est GFR (African American) 112.9 ml/min; Est GFR (Non-African American) 97.4 ml/min; Potassium 2.9 mmol/L (3.5-5.1)
[2022-03-22 10:12] LABS: Albumin Globulin Ratio 0.7 (0.9-2); Albumin Level 2.5 gm/dl (3.4-5.0); Bilirubin,Total 0.4 mg/dl (0.2-1.0); Globulin 3.4 gm/dl (2.5-4.0); Magnesium 1.5 mg/dl (1.7-2.4); Phosphorus 1.5 mg/dl (2.5-4.9); Total Protein 5.9 gm/dl (6.0-8.3)
[2022-03-22] MEDS ORDERED: POTASSIUM CHLORIDE 20 MEQ/15 ML UDC PO STA (11:13)
[2022-03-22] MEDS ORDERED: POTASSIUM PHOS 3 MMOL/1 ML INFUSION IV STA (11:14)
[2022-03-22] MEDS ORDERED: POTASSIUM PHOSPHATE 21 MMOL in SODIUM CHLORIDE 0.9% 500 ML IV ONE (12:00)
[2022-03-22] MEDS ORDERED: THIAMINE HCL 500 MG in SODIUM CHLORIDE 0.9% 50 ML IV ONE (14:15)
[2022-03-22] MEDS: MAGNESIUM SULFATE / D5W 1 GM/100 ML BAG IV SCH ×2 (14:58→16:41)
[2022-03-22] MEDS: POTASSIUM CHLORIDE / WTR 10 MEQ/100 ML PLCT IV SCH ×4 (14:58→17:26)
--- NOTE | 2022-03-22 16:25 | Hospitalist Progress Note ---
Date of Service March 22, 2022 Assessment & Plan (1) Aspiration pneumonia: Plan: Per EMILEE Nava's notes with addendum: Patient presenting from home with reports of generalized weakness and shortness of breath. Hx of achalasia with frequent vomiting. In the ED, CTA chest negative for PE but shows signs of aspiration pneumonia and mucous plugging. Blood cell count improving - 31.8k -> 21k -> 12k De-escalate antibiotics to IV Unasyn Supplemental oxygen as needed Pulmonary toilet with nebs, IS, and flutter valve Follow blood cultures 03/22 Afebrile Blood cultures negative Continue Unasyn Tolerating full liquids Continue to monitor (2) Achalasia: Plan: Status post EGD, with myotomy Diet advanced to full liquids Currently with low potassium, magnesium, phosphorus Question refeeding syndrome? Discussed with tower cleaner Sherly Hansen We will increase thiamine supplement 500 mg daily, then 200 mg daily Aggressive supplementation of IV and p.o. potassium, phosphorus, magnesium Repeat electrolytes at 6 PM Limit caloric intake to 1500 kcal/day Monitor closely (3) Oropharyngeal candidiasis: Plan: 09/2021 underwent EGD that was suggestive of achalasia. Nodule noted at GEJ junction that was negative for metaplasia, dysplasia, and malignancy however showed extensive candidal esophagitis and candidal gastritis. Patient was treated with fluconazole. Patient followed up with GI as an outpatient and had a barium swallow done that again favored achalasia. Patient was referred for surgery evaluation however due to lack of insurance, patient was lost to follow-up. Thick plaques noted on tongue and posterior palate - continue IV fluconazole and swish/spit Nystatin GI consulted - initially recommended transfer to tertiary center; however, after four-way call patient was denied and recommended treatment was Botox at our facility with outpatient follow-up and management Underwent EGD with botox 03/19/2022 showing dilation of entire esophagus with recommendation for outpatient motility study followed by jessica with MIS at [facility] and follow-up with Dr. Dc Advancing diet to soft foods per GI. Appreciate nutrition input, continue MV, PPI BID 03/22 Continue fluconazole (4) Severe protein-calorie malnutrition: Plan: Patient severely emaciated due to inability to tolerate oral intake/achalasia Consult placed to start PPN but preference by RD to hold off if patient able to tolerate full liquids, maintenance fluids Continue IV folate, thiamine, addition of multivitamin / Soft diet (5) DUNG (acute kidney injury): Plan: on admission creat 1.5 Pre renal due to dehydration from ongoing GI loss Continue IV fluids, creatinine proved today to 1.25 -> 1.11 (resolving) Improving (6) Anemia: Plan: H&H 12.1 and 37.3 after hydration Low MCV and MCH Given degree of malnutrition, iron studies reflective of inflammatory process/acute phase reactant. B12 and folic acid WNL Hypokalemia Replaced (7) Thrombocytosis: Plan: Platelets 615K on admission -> normalized today 401 likely reactive Follow CBC DVT PROPHYLAXIS SQ Heparin Dispo: admitted to med/surg FULL CODE Pt was seen and examined in collaboration with Dr. Canseco, please see addendum A total of 45 minutes were spent with greater than 50% of that time face to face with the patient, personally reviewing all current laboratories, imaging studies, past medication reconciliation, outpatient chart review, and discussion with specialists to collaborate care for the patient with attending. Please see attending documentation for corrections and/or additions. Admission and Anticipated Discharge Date Admission Date: March 17, 2022 Subjective Follow-up for achalasia, etc. Seen resting sitting up in bedside chair, comfortable, in good spirits States he is very hungry, would like to advance his diet further States he is not getting enough fluid Denies abdominal pain, nausea vomiting, chest pain, shortness of breath, dizziness No other symptoms Review of Systems Review of Systems: all noted and negative except for above Physical Exam Physical Exam: General- oriented x 3, not in distress, speaks in sentences with no effort or accessory muscle use Eyes- anicteric Neck- no JVD Lungs- clear breath sounds bilaterally, no rales/wheezes Heart- normal rate, regular rhythm; no murmurs Abdomen- normal bowel sounds, nondistended, soft, nontender Extremities- no pretibial edema, no calf tenderness Neuro- alert, oriented x 3; no gross focal neurologic deficits Skin- warm & dry Results & Data Results & Data ([facility]) Vital Signs (Past 12 Hours) Vital Signs Temp Pulse Resp BP Pulse Ox O2 Del Method 03/22/22 15:53 36.9 C 76 18 111/74 100 Room Air 02/12/23 07:26 36.5 C 83 18 131/66 98 Room Air all noted and reviewed including below
[2022-03-22] MEDS ORDERED: POT PHOSPHATE MONOBASIC W/ SOD TAB PO SCH (17:00)
[2022-03-22] MEDS: FLUCONAZOLE 200 MG/100 ML BAG IV SCH (18:10)
[2022-03-22 18:32] LABS: Albumin Globulin Ratio 0.8 (0.9-2); Albumin Level 2.8 gm/dl (3.4-5.0); BUN Creatinine Ratio 12.2 (10-20); Bilirubin,Total 0.3 mg/dl (0.2-1.0); Calcium 7.4 mg/dl (8.5-10.1); Creatinine Clr Calc Pharmacy 63.1 ml/min; Est GFR (African American) 110.3 ml/min; Est GFR (Non-African American) 95.1 ml/min; Globulin 3.4 gm/dl (2.5-4.0); Phosphorus 2.2 mg/dl (2.5-4.9); Potassium 4.6 mmol/L (3.5-5.1); Total Protein 6.2 gm/dl (6.0-8.3)
[2022-03-22] MEDS ORDERED: Nursing to Pharmacy Communication SCH (19:45)
[2022-03-23] MEDS: AMPICILLIN/SULBACTAM SOD 3,000 MG in 0.9 % SODIUM CHLORIDE 100 ML IV SCH ×2 (02:22→08:40)
[2022-03-23 08:47] LABS: Albumin Globulin Ratio 0.8 (0.9-2); Albumin Level 2.2 gm/dl (3.4-5.0); BUN Creatinine Ratio 11.7 (10-20); Bilirubin,Total 0.3 mg/dl (0.2-1.0); Calcium 7.5 mg/dl (8.5-10.1); Creatinine Clr Calc Pharmacy 55.2 ml/min; Est GFR (African American) 93.7 ml/min; Est GFR (Non-African American) 80.8 ml/min; Globulin 2.8 gm/dl (2.5-4.0); Magnesium 1.8 mg/dl (1.7-2.4); Potassium 4.1 mmol/L (3.5-5.1)
[2022-03-23] MEDS ORDERED: THIAMINE HCL 500 MG in SYRINGE 9 ML IV SCH (09:00)
[2022-03-23] MEDS: NYSTATIN SUSP 500,000 U/5 ML UDC PO SCH ×3 (09:53→20:37)
[2022-03-23] MEDS: HEPARIN SOD 5,000 UNIT/0.5 ML VIAL SQ SCH ×2 (09:54→20:39)
[2022-03-23] MEDS: MULTIVITAMIN TAB PO SCH (09:54)
[2022-03-23] MEDS: PANTOprazole 40 MG in SYRINGE 0 ML IV SCH (09:59)
[2022-03-23] MEDS: FOLIC ACID 1 MG in SYRINGE 9.8 ML IV SCH (09:59)
[2022-03-23] MEDS: NICOTINE 7 MG/24 HR TDSY TD SCH (09:59)
[2022-03-23] MEDS: THIAMINE HCL 500 MG in SODIUM CHLORIDE 0.9% 50 ML IV SCH ×2 (10:02→10:21)
--- NOTE | 2022-03-23 13:44 | Hospitalist Progress Note ---
Date of Service March 23, 2022 Assessment & Plan (1) Aspiration pneumonia: Plan: Per EMILEE Nava's notes with addendum: Patient presenting from home with reports of generalized weakness and shortness of breath. Hx of achalasia with frequent vomiting. In the ED, CTA chest negative for PE but shows signs of aspiration pneumonia and mucous plugging. Blood cell count improving - 31.8k -> 21k -> 12k De-escalate antibiotics to IV Unasyn Supplemental oxygen as needed Pulmonary toilet with nebs, IS, and flutter valve Follow blood cultures 03/23 Afebrile Blood cultures negative Continue Unasyn--> last day today tolerating soft diet (2) Achalasia: Plan: Status post EGD, with myotomy Diet advanced to full liquids Currently with low potassium, magnesium, phosphorus Question refeeding syndrome? Discussed with metal stamper Sherly Hansen We will increase thiamine supplement 500 mg daily, then 200 mg daily Aggressive supplementation of IV and p.o. potassium, phosphorus, magnesium Repeat electrolytes at 6 PM Limit caloric intake to 1500 kcal/day Monitor closely 03/23 Thiamine 500mg one dose today, then 200mg BID x 1 week, then 100mg po daily Ph supplement Limit caloric intake to 1500 kcal/day (3) Oropharyngeal candidiasis: Plan: 09/2021 underwent EGD that was suggestive of achalasia. Nodule noted at GEJ junction that was negative for metaplasia, dysplasia, and malignancy however showed extensive candidal esophagitis and candidal gastritis. Patient was treated with fluconazole. Patient followed up with GI as an outpatient and had a barium swallow done that again favored achalasia. Patient was referred for surgery evaluation however due to lack of insurance, patient was lost to follow-up. Thick plaques noted on tongue and posterior palate - continue IV fluconazole and swish/spit Nystatin GI consulted - initially recommended transfer to tertiary center; however, after four-way call patient was denied and recommended treatment was Botox at our facility with outpatient follow-up and management Underwent EGD with botox 03/19/2022 showing dilation of entire esophagus with recommendation for outpatient motility study followed by evjuan ramon with MIS at [facility] and follow-up with Dr. Dc Advancing diet to soft foods per GI. Appreciate nutrition input, continue MV, PPI BID 03/23 Continue fluconazole (4) Severe protein-calorie malnutrition: Plan: Patient severely emaciated due to inability to tolerate oral intake/achalasia Consult placed to start PPN but preference by RD to hold off if patient able to tolerate full liquids, maintenance fluids Continue IV folate, thiamine, addition of multivitamin 03/23 Soft diet Labor Relations Manager on board (5) DUNG (acute kidney injury): Plan: on admission creat 1.5 Pre renal due to dehydration from ongoing GI loss Continue IV fluids, creatinine proved today to 1.25 -> 1.11 (resolving) Improving (6) Anemia: Plan: H&H 12.1 and 37.3 after hydration Low MCV and MCH Given degree of malnutrition, iron studies reflective of inflammatory process/acute phase reactant. B12 and folic acid WNL Hypokalemia Replaced (7) Thrombocytosis: Plan: Platelets 615K on admission -> normalized today 401 likely reactive Follow CBC DVT PROPHYLAXIS SQ Heparin Dispo: PTOT jessica lives with brother FULL CODE Admission and Anticipated Discharge Date Admission Date: March 17, 2022 Subjective ff up for achalasia, dysphagia, malnutrition, etc seen resting in chair, comfortable states he feels better overall tolerating soft diet well no chest pain, abdominal pain, nausea/vomting no chest pain, dyspnea, palpitations, dizziness no other symptoms Review of Systems Review of Systems: all noted and negative except for above Physical Exam Physical Exam: General- oriented x 3, not in distress, speaks in sentences with no effort or accessory muscle use Eyes- anicteric Neck- no JVD Lungs- clear BS bilaterally, no rales/wheezes Heart- normal rate, regular rhythm; no murmurs Abdomen- normal bowel sounds, nondistended, soft, no tenderness Extremities- no pretibial edema, no calf tenderness Neuro- alert, oriented x 3; no gross focal neurologic deficits Skin- warm & dry Results & Data Results & Data ([facility]) Vital Signs (Past 12 Hours) Vital Signs Temp Pulse Resp BP Pulse Ox O2 Del Method 03/23/22 07:32 36.4 C L 67 18 138/81 100 Room Air all noted and reviewed including below
[2022-03-23] MEDS: POT PHOSPHATE MONOBASIC W/ SOD TAB PO SCH ×3 (13:55→20:38)
[2022-03-23] MEDS: FLUCONAZOLE 200 MG/100 ML BAG IV SCH (18:08)
[2022-03-24] MEDS: MULTIVITAMIN TAB PO SCH (08:20)
[2022-03-24] MEDS: NYSTATIN SUSP 500,000 U/5 ML UDC PO SCH ×3 (08:20→21:08)
[2022-03-24] MEDS: NICOTINE 7 MG/24 HR TDSY TD SCH (08:20)
[2022-03-24] MEDS: POT PHOSPHATE MONOBASIC W/ SOD TAB PO SCH ×4 (08:20→21:08)
[2022-03-24] MEDS: HEPARIN SOD 5,000 UNIT/0.5 ML VIAL SQ SCH ×2 (08:23→21:09)
[2022-03-24] MEDS: FOLIC ACID 1 MG in SYRINGE 9.8 ML IV SCH (08:25)
[2022-03-24 08:28] LABS: Albumin Globulin Ratio 0.9 (0.9-2); Albumin Level 2.7 gm/dl (3.4-5.0); BUN Creatinine Ratio 13.5 (10-20); Bilirubin,Total 0.3 mg/dl (0.2-1.0); Calcium 7.8 mg/dl (8.5-10.1); Creatinine Clr Calc Pharmacy 51.2 ml/min; Est GFR (African American) 85.6 ml/min; Est GFR (Non-African American) 73.8 ml/min; Globulin 3.1 gm/dl (2.5-4.0); Magnesium 1.7 mg/dl (1.7-2.4); Phosphorus 2.7 mg/dl (2.5-4.9); Potassium 4.1 mmol/L (3.5-5.1); Total Protein 5.8 gm/dl (6.0-8.3)
[2022-03-24] MEDS: THIAMINE HCL 100 MG TAB PO SCH ×2 (09:03→21:08)
--- NOTE | 2022-03-24 12:22 | Hospitalist Progress Note ---
Date of Service March 24, 2022 Assessment & Plan (1) Aspiration pneumonia: Plan: Per EMILEE Nava's notes with addendum: Patient presenting from home with reports of generalized weakness and shortness of breath. Hx of achalasia with frequent vomiting. 03/24 Respiratory status stable Afebrile Blood cultures negative Completed 7-day course of Unasyn (2) Achalasia: Plan: 03/19/2022 status post EGD, with esophageal dilatation, Botox ingestion Patient swallowing has improved since above procedure Diet slowly advanced, currently tolerating soft diet Rn Transitional Care on board Over the weekend noted to have low potassium, magnesium, phosphorus--> possible mild refeeding syndrome? Electrolytes repleted aggressively, now normalized Discussed with fabricator foam rubber Sherly Hansen Recommend thiamine 500 mg then 200 mg and 100 mg daily Discharge on thiamine supplement, multivitamins, folic acid Repeat BMP, magnesium, phosphorus on follow-up with primary care physician in 1 week Follow-up with [facility] in 2 weeks for definitive management of achalasia including manometry (3) Oropharyngeal candidiasis: Plan: 09/2021 underwent EGD that was suggestive of achalasia. Nodule noted at GEJ junction that was negative for metaplasia, dysplasia, and malignancy however showed extensive candidal esophagitis and candidal gastritis. Patient was treated with fluconazole. Patient followed up with GI as an outpatient and had a barium swallow done that again favored achalasia. Patient was referred for surgery evaluation however due to lack of insurance, patient was lost to follow-up. Thick plaques noted on tongue and posterior palate - continue IV fluconazole and swish/spit Nystatin 03/23 Fluconazole IV, discharged on nystatin (4) Severe protein-calorie malnutrition: Plan: Patient severely emaciated due to inability to tolerate oral intake/achalasia 03/24 Rn Transitional Care consulted Placed on boost 3 times daily, supplements Currently tolerating soft diet well (5) DUNG (acute kidney injury): Plan: on admission creat 1.5 Pre renal due to dehydration from ongoing GI loss Given IV fluids, resolved (6) Anemia: Plan: H&H 12.1 and 37.3 after hydration Low MCV and MCH Given degree of malnutrition, iron studies reflective of inflammatory process/acute phase reactant. B12 and folic acid WNL (7) Thrombocytosis: Plan: Platelets 615K on admission -> normalized DVT PROPHYLAXIS SQ Heparin Disposition Patient prefers to be discharged home with home health services Patient's brother will be available to pick him up tomorrow FULL CODE Admission and Anticipated Discharge Date Admission Date: March 17, 2022 Subjective Follow-up for achalasia, severe protein calorie malnutrition, status post EGD with Botox injection, etc. Seen resting in bedside chair, comfortable, not in distress, in good spirits States he feels better overall Tolerating soft diet well, no epigastric/chest pain, abdominal pain, nausea vomiting Positive BMs States he is ambulating fine, just having some difficulty with his left foot when getting up from the chair, but does well once he starts to walk Declines inpatient acute rehab, prefers to go home with home health services with rolling walker Discussed risks involved including falls and injuries, patient verbalized understanding and agreement Review of Systems Review of Systems: all noted and negative except for above Physical Exam Physical Exam: General- oriented x 3, not in distress, speaks in sentences with no effort or accessory muscle use Eyes- anicteric Neck- no JVD Lungs- clear breath sounds bilaterally, no crackles or wheezing Heart- normal rate, regular rhythm; no murmurs Abdomen- normal bowel sounds, nondistended, soft, nontender Extremities- no pretibial edema, no calf tenderness Neuro- alert, oriented x 3; no gross focal neurologic deficits Skin- warm & dry Results & Data Results & Data ([facility]) Vital Signs (Past 12 Hours) Vital Signs Temp Pulse Resp BP Pulse Ox O2 Del Method 03/24/22 07:42 36.6 C 88 16 119/66 98 Room Air all noted and reviewed including below
[2022-03-24] MEDS: FLUCONAZOLE 200 MG/100 ML BAG IV SCH (17:03)
[2022-03-25] MEDS: NYSTATIN SUSP 500,000 U/5 ML UDC PO SCH ×2 (07:48→12:33)
[2022-03-25] MEDS: THIAMINE HCL 100 MG TAB PO SCH (07:48)
[2022-03-25] MEDS: FOLIC ACID 1 MG in SYRINGE 9.8 ML IV SCH (07:49)
[2022-03-25] MEDS: POT PHOSPHATE MONOBASIC W/ SOD TAB PO SCH ×3 (07:49→16:50)
[2022-03-25] MEDS: MULTIVITAMIN TAB PO SCH (07:49)
[2022-03-25] MEDS: NICOTINE 7 MG/24 HR TDSY TD SCH (07:49)
[2022-03-25] MEDS: HEPARIN SOD 5,000 UNIT/0.5 ML VIAL SQ SCH (07:50)
[2022-03-25 08:47] LABS: Albumin Globulin Ratio 0.8 (0.9-2); Albumin Level 2.6 gm/dl (3.4-5.0); BUN Creatinine Ratio 15.1 (10-20); Bilirubin,Total 0.3 mg/dl (0.2-1.0); Creatinine Clr Calc Pharmacy 61.1 ml/min; Est GFR (Non-African American) 91.4 ml/min; Globulin 3.1 gm/dl (2.5-4.0); Magnesium 1.6 mg/dl (1.7-2.4); Phosphorus 3.5 mg/dl (2.5-4.9); Potassium 3.6 mmol/L (3.5-5.1); Total Protein 5.7 gm/dl (6.0-8.3)
--- NOTE | 2022-03-25 11:18 | Discharge Summary ---
Discharge Summary Date of Service March 25, 2022 Notes For Next Care Provider Needs to follow up with Herman PEREZ for management of his achalasia Medication Changes From Visit Thiamine, folic acid and multivitamin Admission HPI Per Admitting Provider 57 year olf male with PMH achalasia, tobacco abuse, severe malnutrition, and other problems listed below who presents to the ED for evaluation of generalized weakness and shortness of breath. Patient admitted to [facility] 09/2021 after presenting for intractable vomiting and 100 pound weight loss. Patient underwent EGD that was suggestive of achalasia. Nodule noted at GEJ junction that was negative for metaplasia, dysplasia, and malignancy however showed extensive candidal esophagitis and candidal gastritis. Patient was treated with fluconazole. Patient followed up with GI as an outpatient and had a barium swallow done that again favored achalasia. Patient was referred for surgery evaluation however due to lack of insurance, patient was lost to follow-up. Patient presents today with 2 days of generalized weakness and exertional shortness of breath. Patient reports shortness of breath with minimal exertion. Patient also states he has a chronic cough which is unchanged from baseline. Patient's nutritional intake typically includes water, milk, pudding, cream of chicken soup. Patient reports vomiting after almost every time he eats. He denies abdominal pain. No fevers or chills. Denies chest pain palpitations. No lightheadedness, dizziness, diaphoresis, syncopal events. He denies urinary symptoms. In the ED, patient is hemodynamically stable and is saturating well on room air. Labs show WBC 31 K, platelet count 615K, creatinine 1.5. CTA chest negative for PE however shows no change in the dilated, fluid-filled, and thickened esophagus to the level the gastroesophageal junction. This could be due to achalasia. Progressive mucoid secretions within the bronchi with partial opacification of the distal bronchi within the lower lobes, right greater than left. There is also progressive patchy irregular densities and tree-in-bud nodular opacities within the lung bases, right greater than left. This favors an infectious bronchiolitis and is likely due to aspiration. Patient was given nebulizer treatment, IV famotidine, IV Solu-Medrol, IV Zofran, IV Zosyn, IVF. Admission Exam Per Admitting Provider Constitutional: + ill appearing, + cachectic and + malnourished; no acute distress Eyes: PERRL, conjunctivae normal, anicteric sclerae ENMT: Ears: no external ear abnormality Nose: no external nose abnormality Mouth: + poor dentition thick white plaques noted over tongue and posterior palate Respiratory: normal respiratory effort; no respiratory distress Auscultation: + diminished lung sounds; no wheezes Cardiovascular: Rate/Rhythm: regular rate and regular rhythm Vessels: normal peripheral pulses Extremities: no edema Gastrointestinal (Abdomen): normal bowel sounds, soft, nontender, no hepatosplenomegaly Musculoskeletal: no cyanosis or clubbing, extremities motor strength 5/5 Skin: no rashes, warm and dry Neurologic: PERRL, EOMI, accommodation nl, no face palsy, no dysarthria Psychiatric: A+Ox3, euthymic affect Principal Dx & Hospital Course #1 = Principal Diagnosis (1) Aspiration pneumonia: Patient presenting from home with reports of generalized weakness and shortness of breath. Hx of achalasia with frequent vomiting. CT chest noted mucoid secretions in bronchi with partial opacification of distal bronchi R>L, patchy irregular opacities in lung bases Blood cultures negative Completed 7-day course of Unasyn Respiratory status stable Currently on room air (2) Achalasia: 03/19/2022 status post EGD, with esophageal dilatation, Botox ingestion Patient swallowing has improved since above procedure Diet slowly advanced, currently tolerating soft easy to chew diet Discharged on thiamine supplement, multivitamins, folic acid Repeat BMP, magnesium, phosphorus on follow-up with primary care physician in 1 week Follow-up with [facility] clinic in 2 weeks for definitive management of achalasia including manometry (3) Oropharyngeal candidiasis: 09/2021 underwent EGD that was suggestive of achalasia. Nodule noted at GEJ junction that was negative for metaplasia, dysplasia, and malignancy however showed extensive candidal esophagitis and candidal gastritis. Patient was treated with fluconazole. Patient followed up with GI as an outpatient and had a barium swallow done that again favored achalasia. Patient was referred for surgery evaluation however due to lack of insurance, patient was lost to follow-up. Thick plaques noted on tongue and posterior palate Got fluconazole inpatient Discharged on nystatin (4) Severe protein-calorie malnutrition: Patient severely emaciated due to inability to tolerate oral intake/achalasia Continue boost 3 times daily, supplements Currently tolerating soft diet well (5) DUNG (acute kidney injury): On admission creat 1.5 Pre renal due to dehydration from ongoing GI loss Given IV fluids DUNG resolved (6) Anemia: H&H 12.1 and 37.3 after hydration Low MCV and MCH Given degree of malnutrition, iron studies reflective of inflammatory process/acute phase reactant. B12 and folic acid WNL (7) Thrombocytosis: Platelets 615K on admission -> normalized Discharge Exam Constitutional + well hydrated and + thin; no acute distress Eyes PERRL, conjunctivae normal, anicteric sclerae ENMT external ear and nose normal, oropharynx normal Respiratory normal respiratory effort, lungs clear to auscultation Cardiovascular Rate/Rhythm: regular rate and regular rhythm S1 S2 Gastrointestinal (Abdomen) normal bowel sounds, soft, nontender, no hepatosplenomegaly Musculoskeletal trace pedal edema (advised to elevate and use pressure stockings if needed) Neurologic PERRL, EOMI, accommodation nl, no face palsy, no dysarthria Psychiatric A+Ox3, euthymic affect Updated Medication List Medication Instructions Recorded Confirmed Type folic acid 1 mg tablet 1,000 mcg PO DAILY 30 days #30 tabs 03/24/22 Rx multivitamin with folic acid 400 1 tab PO QAM 30 days #30 tabs 03/24/22 Rx mcg tablet (Daily-Antonia (with folic acid)) nystatin 100,000 unit/mL oral 10 ml PO TID 3 days #90 mL 03/24/22 Rx suspension thiamine HCl (vitamin B1) 100 mg 100 mg PO BID 30 days #60 tabs 03/24/22 Rx tablet Hospital Stay Data Consultations 03/17/22 14:58 ED Decision to Admit Stat 03/17/22 16:04 Consult Gastroenterology Routine Procedures Performed Operation Date: 03/19/22 16:30 Actual Procedures p EGD Wayne - Raine Anderson DO Diagnostic Imagining Performed 03/17/22 13:28 CT abd pelvis IV con only Stat CT angio chest PE protocol Stat Pending Results Patient Have Any Pending Studies at Discharge: Yes Discharge Instructions Given to Patient (Per Discharging Provider) PLEASE REFER TO YOUR NEW MEDICATION LIST AND FOLLOW INSTRUCTIONS CAREFULLY. YOUR NEW MEDICATIONS INCLUDE: Thiamine-100 mg twice a day x1 week, then 100 mg daily Folate acid Multivitamins Nystatin- for oral thrush PLEASE CALL YOUR PRIMARY CARE PHYSICIAN OR RETURN TO THE ER IF WITH WORSENING OF SYMPTOMS, INCLUDING Chest/stomach pain, nausea or vomiting, weakness, fevers or chills, etc. FOLLOW UP WITH PRIMARY CARE PHYSICIAN OUTLINED ABOVE. [facility]ARTEN AND[facility] 2 WEE[facility]. Total Time Total Time Spent Total Time Spent (In Minutes): 50 Total Time Includes: Examination of the Patient, Discharge Planning and Medication Reconciliation
[2022-03-25] MEDS: FLUCONAZOLE 200 MG/100 ML BAG IV SCH (16:50)
== END 2022-03-25 16:56 | disposition home health service (06) | DRG 177 ==
LOC: ED 12:13 → SUATTDRO 14:57 → EDINP 14:57 → 3N 19:37
DX: R64 Cachexia; J69.0 Pneumonitis due to inhalation of food and vomit; N17.9 Acute kidney failure, unspecified; B37.81 Candidal esophagitis; E87.6 Hypokalemia; J15.6 Pneumonia due to other Gram-negative bacteria; K22.0 Achalasia of cardia; B37.89 Other sites of candidiasis; E43 Unspecified severe protein-calorie malnutrition; B37.0 Candidal stomatitis; Z68.1 Body mass index [BMI] 19.9 or less, adult; F17.210 Nicotine dependence, cigarettes, uncomplicated; J21.9 Acute bronchiolitis, unspecified

== ENCOUNTER 2023-02-17 16:46 | Inpatient (IN) ==
[2023-02-17 17:44] LABS: Basophils # (auto) 0.09 K/uL (0.00-0.20); Basophils % (auto) 0.8 %; Eosinophils # (auto) 0.14 K/uL (0.00-0.50); Eosinophils % (auto) 1.2 %; Hematocrit (blood only) 48.6 % (42.0-52.0); Hemoglobin 17.8 g/dl (14.0-18.0); Immature Granulocytes # (auto) 0.04 K/uL (0.01-0.20); Immature Granulocytes % (auto) 0.3 %; Lymphocytes # (auto) 3.01 K/uL (1.20-3.40); Lymphocytes % (auto) 25.4 %; Mean Corpuscular Hemoglobin 29.7 pg (25.0-34.0); Mean Corpuscular Hgb Conc 36.6 g/dL (32.0-36.0); Mean Corpuscular Volume 81.1 fL (80.0-100.0); Mean Platelet Volume 10.4 fL (9.4-12.4); Monocytes # (auto) 1.03 K/uL (0.11-0.59); Monocytes % (auto) 8.7 %; Neutrophils # (auto) 7.53 K/uL (1.40-6.50); Neutrophils % (auto) 63.6 %; Platelet Count 441 K/uL (130-400); RDW Coefficient of Variation 13.3 % (11.5-14.5); RDW Standard Deviation 38.6 fL (36.4-46.3); Red Blood Count 5.99 M/uL (4.70-6.10); White Blood Count 11.84 K/ul (4.8-10.8)
[2023-02-17] MEDS ORDERED: SODIUM CHLORIDE 0.9% 1,000 ML IV ONE (17:52)
--- NOTE | 2023-02-17 17:57 | Emergency Department Note ---
Impression & Plan Syncope, Vomiting, DUNG (acute kidney injury), Acute dehydration, Hypokalemia ED Provider Note NAME: JERRY BENAVIDEZ AGE: 57 SEX: M : 1965 ARRIVES VIA: Ambulance INFORMANT: [Patient] ED PROVIDER(S): [Jose Antonio Arteaga MD] CHIEF COMPLAINT: Syncope HISTORY OF PRESENT ILLNESS: The patient is a 57-year-old male who presents to the ED with a syncopal spell today. He got up from his bed and the next thing he knew, he woke up. He had fainted. There was no chest pain or dyspnea noted. The patient does admit that lately, he has been very lightheaded and dizzy with standing. He has lost weight. He has vomiting all the time, he cannot seem to keep even liquids down. There is really no abdominal pain. He has not had fever or chills. No cough or cold symptoms. He has felt quite weak though. The patient states that he has been ill really for a few months but things have escalated lately. He was in the hospital last year for aspiration secondary to vomiting. He does have achalasia. PMHx/PSHx/Social Hx: See Below PHYSICAL EXAM: GENERAL: Patient is in no acute distress. Thin. HEENT: No acute trauma, normocephalic atraumatic, mucous membranes dry, no nasal congestion. Poor dentition. NECK: No stridor, no adenopathy, no meningismus, trachea is midline. LUNGS: Clear to auscultation bilaterally, no wheeze, no rhonchi, breath sounds equal. HEART: Without murmurs gallops or rubs, regular rate and rhythm. ABDOMEN: Soft, nontender, no peritonitis. EXTREMITIES: No cyanosis, full range of motion of all the joints without pain or difficulty. NEUROLOGIC: Oriented x 3, no acute motor or sensory deficits, no focal weakness. SKIN: No jaundice, no diaphoresis. DIFFERENTIAL DIAGNOSIS: Dehydration, renal or liver failure, bowel obstruction, malignancy, viral illness, esophageal stricture, dysrhythmia, among others. EMERGENCY DEPARTMENT PROCEDURES: MEDICAL DECISION MAKING: There is a mild leukocytosis, this could be consistent with infection or just the stress from his vomiting. There is a normal hemoglobin. Platelet count slightly high. There was no coagulopathy. There was evidence for some acute kidney injury with a creatinine over 2. Potassium was quite low at 2.2. BUN elevated consistent with dehydration. No concerning liver enzyme elevation. Patient appeared to be in a euthyroid state. ECG shows a normal sinus rhythm, no acute ischemia. Cardiac enzyme testing x 1 is not consistent with acute cardiac injury. Urinalysis shows some dehydration. Some contamination was seen. No obvious infection. Respiratory bio fire was completely negative. Chest x-ray does not show pneumonia or pneumothorax. Abdominal and pelvis CT shows fluid in the esophagus consistent with his achalasia. No bowel obstruction or acute surgical pathology by CT imaging. The patient appeared dehydrated clinically. He presented with persistent vomiting. He was found to be in acute kidney injury with some dehydration and a low potassium. The patient is in need of a hospital stay. The patient received IV saline, 1 L. He was given IV potassium. I spoke with the patient about his findings, I spoke with case management, the on-call hospitalist was consulted. The patient's achalasia likely led to his vomiting and dehydration. This in turn likely led to his syncopal spell today. Prior/Outside records/notes reviewed: Discharge summary note from 03/25/2022 discussing his presentation for aspiration pneumonia, acute kidney injury and achalasia. ECG per my interpretation: Indication was syncope. The ECG shows a normal sinus rhythm with a rate of 99. There is LVH present. There is no acute ST elevation. There are no PVCs. The QTc is 454. Continuous Cardiac Monitoring per my interpretation: An order was placed for continuous cardiac monitoring. The monitor shows a rate of 92 with normal sinus rhythm. Imaging/x-ray results per my interpretation: Chest x-ray does not show mediastinal widening, pneumonia or pneumothorax. Chronic Medical/Social conditions affecting care: Care/Management discussed with: Case management, the on-call hospitalist. Level of care consideration(s): After review of the information above and other included data: --I believe the patient requires escalation of care to admission DISPOSITION: Admission Past Med/Surg History Medical History Tobacco abuse Achalasia Surgical History No pertinent past surgical history Family History Mother , 55 [place] Myocardial infarction Diabetes Father , 77 -[place]+ Myocardial infarction Diabetes Brother , [place] - 50s Myocardial infarction Brother No problems noted. Social History Smoking Status: Never smoker Tobacco Type: Cigarettes packs per day: 1; Second Hand Exposure: No; Do You Dip or Chew Tobacco: No; Hx Alcohol Use: Yes Alcohol type: hard liquor Alcohol type Comment: Holidays only Hx Substance Use: No Preferred Language: Citizen Of [place] Communication Ability: Effective Security Clerk Required: No Beliefs That Will Affect Care: None marital status: Single Current Living Situation: Family Current Living Situation Comment: lives with brother Feels Safe at Home: Yes Assistive Devices: None Allergies Allergies Allergy/AdvReac Type Severity Reaction Status Date / Time mushroom AdvReac Intermediate Hives Verified 02/17/23 19:19 Home Meds Home Medications Medication Instructions Recorded Confirmed No Known Home Medications 02/17/23 02/17/23 Results & Data (ED) Vital Signs Vital Signs - 24 hr 02/17/23 16:52 02/17/23 17:21 02/17/23 17:42 Temperature 36.0 C L Temperature Source Oral Pulse Rate - Lying Pulse Rate - Sitting Pulse Rate - Standing Pulse Rate 109 H 93 H Pulse Rate [Apical] Pulse Rhythm Regular Pulse Strength Normal Respiratory Rate 20 Respiratory Effort / Characteristics Non-Labored Spontaneous Respiratory Depth Normal Respiratory Pattern Regular Blood Pressure - Lying Blood Pressure - Sitting Blood Pressure- Standing Blood Pressure 109/88 Blood Pressure [Left Arm] Blood Pressure Mean 95 Blood Pressure Mean [Left Arm] Blood Pressure Position Sitting Blood Pressure Position [Left Arm] Pulse Oximetry 99 96 Oxygen Delivery Method Room Air Room Air Sepsis Recent Fever Within 48 Hours No Sepsis New/Unexplained Change in Mental Status No Sepsis Action Taken by Nursing No Action Required 02/17/23 18:28 02/17/23 19:45 02/17/23 20:00 Temperature Temperature Source Pulse Rate - Lying 61 Pulse Rate - Sitting 80 Pulse Rate - Standing 86 Pulse Rate Pulse Rate [Apical] 78 58 L Pulse Rhythm Pulse Strength Respiratory Rate 18 18 Respiratory Effort / Characteristics Respiratory Depth Normal Normal Respiratory Pattern Blood Pressure - Lying 125/74 Blood Pressure - Sitting 110/79 Blood Pressure- Standing 102/74 Blood Pressure Blood Pressure [Left Arm] 111/91 122/83 Blood Pressure Mean Blood Pressure Mean [Left Arm] 97 96 Blood Pressure Position Blood Pressure Position [Left Arm] Lying Semi-fowlers Pulse Oximetry 98 99 Oxygen Delivery Method Room Air Room Air Sepsis Recent Fever Within 48 Hours Sepsis New/Unexplained Change in Mental Status Sepsis Action Taken by Nursing 02/17/23 21:12 02/17/23 22:00 Temperature Temperature Source Pulse Rate - Lying Pulse Rate - Sitting Pulse Rate - Standing Pulse Rate 61 Pulse Rate [Apical] 65 Pulse Rhythm Pulse Strength Respiratory Rate 18 Respiratory Effort / Characteristics Respiratory Depth Normal Respiratory Pattern Blood Pressure - Lying Blood Pressure - Sitting Blood Pressure- Standing Blood Pressure Blood Pressure [Left Arm] 133/69 Blood Pressure Mean Blood Pressure Mean [Left Arm] 90 Blood Pressure Position Blood Pressure Position [Left Arm] Semi-fowlers Pulse Oximetry 97 Oxygen Delivery Method Room Air Sepsis Recent Fever Within 48 Hours Sepsis New/Unexplained Change in Mental Status Sepsis Action Taken by [facility] Medications Current Medication List: was personally reviewed by me Laboratory Data Attestation: I reviewed the patient's lab results. 02/17/23 16:55 02/17/23 16:55 Lab Results 02/17/23 02/17/23 02/17/23 Range/Units 16:55 18:00 22:01 WBC 11.84 H (4.8-10.8) K/ul RBC 5.99 (4.70-6.10) M/uL Hgb 17.8 (14.0-18.0) g/dl Hct 48.6 (42.0-52.0) % MCV 81.1 (80.0-100.0) fL MCH 29.7 (25.0-34.0) pg MCHC 36.6 H (32.0-36.0) g/dL RDW Std Deviation 38.6 (36.4-46.3) fL RDW Coeff of Marcelo 13.3 (11.5-14.5) % Plt Count 441 H (130-400) K/uL MPV 10.4 (9.4-12.4) fL Immature Gran % (Auto) 0.3 % Neut % (Auto) 63.6 % Lymph % (Auto) 25.4 % Mcpherson % (Auto) 8.7 % Eos % (Auto) 1.2 % Baso % (Auto) 0.8 % Neut # (Auto) 7.53 H (1.40-6.50) K/uL Lymph # (Auto) 3.01 (1.20-3.40) K/uL Mcpherson # (Auto) 1.03 H (0.11-0.59) K/uL Eos # (Auto) 0.14 (0.00-0.50) K/uL Baso # (Auto) 0.09 (0.00-0.20) K/uL Immature Gran # (Auto) 0.04 (0.01-0.20) K/uL PT 11.9 (9.0-12.0) Seconds INR 1.1 (0.9-1.1) APTT 27 (21-31) Seconds PTT Ratio 1.0 Sodium 134 L (136-145) mmol/L Potassium 2.2 L* (3.5-5.1) mmol/L Chloride 96 L (98-107) mmol/L Carbon Dioxide 26 (21-32) mmol/L Anion Gap 12 H (3-11) BUN 40 H (6-23) mg/dl Creatinine 2.03 H (0.6-1.4) mg/dl Est Cr Clr Drug Dosing 39.3 ml/min Est GFR ( Amer) 41.2 ml/min Est GFR (Non-Af Amer) 35.6 ml/min BUN/Creatinine Ratio 19.7 (10-20) Glucose 140 H (70-99(Fasting)) mg/dl Calcium 9.7 (8.6-10.3) mg/dl Magnesium 2.3 (1.7-2.4) mg/dl Total Bilirubin 1.1 H (0.2-1.0) mg/dl AST 31 (13-39) U/L ALT 30 (7-52) U/L Alkaline Phosphatase 104 (34-104) U/L Troponin I High Sens 8.9 (0-20) pg/ml Total Protein 7.9 (6.0-8.3) gm/dl Albumin 4.5 (3.4-5.0) gm/dl Globulin 3.4 (2.5-4.0) gm/dl Albumin/Globulin Ratio 1.3 (0.9-2) TSH 0.552 (0.300-4.500) uIu/ml Urine Color Dark Yellow Urine Appearance Clear (Clear) Urine pH 6.0 (4.5-7.5) Ur Specific Preston 1.028 (1.000-1.030) Urine Protein 1+ H (Negative) Urine Glucose (UA) Negative (Negative) Urine Ketones Trace H (Negative) Urine Blood Negative (Negative) Urine Nitrite Positive A (Negative) Urine Bilirubin 2+ H (Negative) Urine Urobilinogen Negative (Negative) Ur Leukocyte Esterase Trace H (Negative) Urine WBC (Auto) 1-5 (0-5) /hpf Urine RBC (Auto) 5-10 H (0-4) /hpf U Hyaline Cast (Auto) >30 H (0-5) /lpf U Epithel Cells (Auto) >30 H (0-5) /lpf Urine Bacteria (Auto) Negative (Negative) Granular Casts 1-5 H (0) /lpf Adenovirus (PCR) Not Detected (NotDetected) B. pertussis DNA (PCR) Not Detected (NotDetected) B.parapertussis DNA PCR Not Detected (NotDetected) C. pneumoniae DNA (PCR) Not Detected (NotDetected) Coronavirus OC43 (PCR) Not Detected (NotDetected) Coronavirus HKU1 (PCR) Not Detected (NotDetected) Coronavirus 229E (PCR) Not Detected (NotDetected) SARS-CoV-2 (PCR) Not Detected (NotDetected) Coronavirus NL63 (PCR) Not Detected (NotDetected) Human Metapneumovir PCR Not Detected (NotDetected) Influenza Type A (PCR) Not Detected (NotDetected) Influenza Type B (PCR) Not Detected (NotDetected) M. pneumoniae (PCR) Not Detected (NotDetected) Parainfluenza 1 (PCR) Not Detected (NotDetected) Parainfluenza 2 (PCR) Not Detected (NotDetected) Parainfluenza 3 (PCR) Not Detected (NotDetected) Parainfluenza 4 (PCR) Not Detected (NotDetected) RSV (PCR) Not Detected (NotDetected) Entero/Rhino (PCR) Not Detected (NotDetected) Administered Medications Lactated Ringer's (Lr) 1,000 mls @ 100 mls/hr IV .Q10H ONE Stop: 02/18/23 05:48 Last Admin: 02/17/23 19:59 Dose: 100 mls/hr Documented By: LAWRENCE Discontinued Medications Sodium Chloride (Nss) 1,000 mls @ 999 mls/hr IV .Q1H1M ONE Stop: 02/17/23 18:52 Last Infusion: 02/17/23 19:12 Dose: Infused Documented By: Admin: 02/17/23 18:05 Dose: 999 mls/hr Documented By: AFSHIN Potassium Chloride (K Ezio / Wtr) 10 meq in 100 mls @ 100 mls/hr IV Q1H CORAL Stop: 02/17/23 20:14 Last Infusion: 02/17/23 22:08 Dose: Infused Documented By: Infusion: 02/17/23 20:29 Dose: 0 mls/hr Documented By: Infusion: 02/17/23 20:18 Dose: 75 mls/hr Documented By: Admin: 02/17/23 19:48 Dose: 100 mls/hr Documented By: Infusion: 02/17/23 19:43 Dose: Infused Documented By: Admin: 02/17/23 18:43 Dose: 100 mls/hr Documented By: AFSHIN Imaging Data Radiologist's Impression: Chest X-Ray 02/17/23 17:18 .XR chest 1V not portable CLINICAL HISTORY: Chest pain, nonspecific. COMPARISON STUDY: Chest radiograph and chest CT March 17, 2022. FINDINGS: Lung volumes are normal. No consolidation is identified. There is no pneumothorax or pleural effusion. Cardiac size is normal. Mediastinal contours are normal. There is no evidence for pulmonary edema. IMPRESSION: No acute cardiopulmonary findings. ACT 112: Negative or not required by law. Electronically signed by: Samson Majano M.D. 02/17/2023 6:23 PM Abdomen/Pelvis CT 02/17/23 18:17 CT OF THE ABDOMEN AND PELVIS WITHOUT CONTRAST CLINICAL HISTORY: vomiting, weight loss, dung COMPARISON STUDY: CT of the abdomen and pelvis March 17, 2022. TECHNIQUE: Axial images of the abdomen and pelvis were obtained without IV contrast. Images were reviewed in the axial, sagittal, and coronal planes. Automated exposure control was utilized for the study. A dose lowering technique was utilized adhering to the principles of ALARA. FINDINGS: The distal esophagus is dilated and fluid-filled. The appearance is similar to CTs of October 06, 2021 and March 17, 2022. This was depicted on barium swallow January 28, 2022 and is likely related to achalasia. Hepatic steatosis is noted. There are calcified granulomas within the spleen. Adrenal glands, kidneys and pancreas are unremarkable. There is no hydronephrosis. No biliary or pancreatic ductal dilatation is present. No evidence for a bowel obstruction. No renal or ureteral calculi are present. There is no hydronephrosis. Small amount of layering calcifications within the bladder are present. Prostate is mildly enlarged. There is no lymphadenopathy. No ascites. No fluid collections. Appendix is normal. No fracture or suspicious osseous. IMPRESSION: 1. No acute process within the abdomen or pelvis on unenhanced exam. 2. No bowel obstruction. 3. No renal or ureteral calculi. No hydronephrosis. Minimal layering calcifications/small calculi within the bladder. Enlarged prostate. 4. Hepatic steatosis. 5. Dilated, fluid-filled distal esophagus, as shown on prior exams. This is likely due to achalasia. Although less likely, an underlying mucosal lesion cannot be excluded by CT. ACT 112: Negative or not required by law. Electronically signed by: Samson Majano M.D. 02/17/2023 7:20 PM Discharge Plan Visit Data Chief Complaint: Syncope ED Provider: Jose Antonio Arteaga Discharge Problem: Syncope, Vomiting, DUNG (acute kidney injury), Acute dehydration, Hypokalemia Patient Disposition: Admitted As Inpatient Condition: Fair Forms Stand Alone Forms: XPlace Prescriptions Prescriptions: No Action No Known Home Medications Referrals Referrals: Mal Leung DO [Primary Care Provider] - Discharge Problem: Syncope Qualifiers: Syncope type: unspecified Qualified Code(s): R55 - Syncope and collapse Vomiting Qualifiers: Vomiting type: unspecified Nausea presence: with nausea Qualified Code(s): R 11.2 - Nausea with vomiting, unspecified
[2023-02-17 18:10] LABS: Albumin Globulin Ratio 1.3 (0.9-2); Albumin Level 4.5 gm/dl (3.4-5.0); BUN Creatinine Ratio 19.7 (10-20); Bilirubin,Total 1.1 mg/dl (0.2-1.0); Calcium 9.7 mg/dl (8.6-10.3); Creatinine Clr Calc Pharmacy 39.3 ml/min; Est GFR (African American) 41.2 ml/min; Est GFR (Non-African American) 35.6 ml/min; Globulin 3.4 gm/dl (2.5-4.0); INR 1.1 (0.9-1.1); Partial Thromboplastin Time 27 Seconds (21-31); Potassium 2.2 mmol/L (3.5-5.1); Prothrombin Time 11.9 Seconds (9.0-12.0); Total Protein 7.9 gm/dl (6.0-8.3); Troponin I High Sensitivity 8.9 pg/ml (0-20)
--- NOTE | 2023-02-17 18:24 | XRay Report ---
.XR chest 1V not portable CLINICAL HISTORY: Chest pain, nonspecific. COMPARISON STUDY: Chest radiograph and chest CT March 17, 2022. FINDINGS: Lung volumes are normal. No consolidation is identified. There is no pneumothorax or pleura l effusion. Cardiac size is normal. Mediastinal contours are normal. There is no evidence for pulmona ry edema. IMPRESSION: No acute cardiopulmonary findings. ACT 112: Negative or not required by law. Electronically signed by: Samson Majano M.D. 02/17/2023 6:23 PM
[2023-02-17] MEDS: POTASSIUM CHLORIDE / WTR 10 MEQ/100 ML PLCT IV SCH ×3 (18:43→23:30)
[2023-02-17 19:00] LABS: Adenovirus PCR Not Detected (NotDetected); Bordetella parapertussis PCR Not Detected (NotDetected); Bordetella pertussis PCR Not Detected (NotDetected); Chlamydia pneumoniae PCR Not Detected (NotDetected); Coronavirus 229E PCR Not Detected (NotDetected); Coronavirus CoV-2 (COVID19)PCR Not Detected (NotDetected); Coronavirus HKU1 PCR Not Detected (NotDetected); Coronavirus NL63 PCR Not Detected (NotDetected); Coronavirus OC43PCR Not Detected (NotDetected); Human Metapneumovirus PCR Not Detected (NotDetected); Influenza A PCR Not Detected (NotDetected); Influenza B PCR Not Detected (NotDetected); Mycoplasma pneumoniae PCR Not Detected (NotDetected); Parainfluenza Virus 1 PCR Not Detected (NotDetected); Parainfluenza Virus 2 PCR Not Detected (NotDetected); Parainfluenza Virus 3 PCR Not Detected (NotDetected); Parainfluenza Virus 4 PCR Not Detected (NotDetected); Respiratory Syncytial VirusPCR Not Detected (NotDetected); Rhinovirus/Enterovirus PCR Not Detected (NotDetected)
--- NOTE | 2023-02-17 19:22 | CT Scan Report ---
CT OF THE ABDOMEN AND PELVIS WITHOUT CONTRAST CLINICAL HISTORY: vomiting, weight loss, darlene COMPARISON STUDY: CT of the abdomen and pelvis March 17, 2022. TECHNIQUE: Axial images of the abdomen and pelvis were obtained without IV contrast. Images were revi ewed in the axial, sagittal, and coronal planes. Automated exposure control was utilized for the nicki dy. A dose lowering technique was utilized adhering to the principles of ALARA. FINDINGS: The distal esophagus is dilated and fluid-filled. The appearance is similar to CTs of Aug[place] 2021 and March 17, 2022. This was depicted on barium swallow January 28, 2022 and is likely related to achalasia. Hepatic steatosis is noted. There are calcified granulomas within the spleen. A drenal glands, kidneys and pancreas are unremarkable. There is no hydronephrosis. No biliary or pancr eatic ductal dilatation is present. No evidence for a bowel obstruction. No renal or ureteral calculi are present. There is no hydronephrosis. Small amount of layering calcifications within the bladder are present. Prostate is mildly enlarged. There is no lymphadenopathy. No ascites. No fluid collectio ns. Appendix is normal. No fracture or suspicious osseous. IMPRESSION: 1. No acute process within the abdomen or pelvis on unenhanced exam. 2. No bowel obstruction. 3. No renal or ureteral calculi. No hydronephrosis. Minimal layering calcifications/small calculi wit hin the bladder. Enlarged prostate. 4. Hepatic steatosis. 5. Dilated, fluid-filled distal esophagus, as shown on prior exams. This is likely due to achalasia. Although less likely, an underlying mucosal lesion cannot be excluded by CT. ACT 112: Negative or not required by law. Electronically signed by: Samson Majano M.D. 02/17/2023 7:20 PM
[2023-02-17 19:42] LABS: Magnesium 2.3 mg/dl (1.7-2.4)
[2023-02-17 19:46] LABS: Thyroid Stimulating Hormone 0.552 uIu/ml (0.300-4.500)
[2023-02-17] MEDS ORDERED: LACTATED RINGER'S 1,000 ML IV ONE (19:49)
[2023-02-17 22:25] LABS: Appearance Urine Clear (Clear); Bacteria Urine Automated Negative (Negative); Blood Urine Negative (Negative); Color Urine Dark Yellow; Epithelial Cell Urine Auto >30 /lpf (0-5); Glucose Urine UA Negative (Negative); Ketones Urine Trace (Negative); Leukocyte Esterase Urine Trace (Negative); Nitrite Urine Positive (Negative); Protein Urine 1+ (Negative); Specific Gravity Urine 1.028 (1.000-1.030); Urobilinogen Urine Negative (Negative)
[2023-02-17 22:26] LABS: Bilirubin Urine 2+ (Negative)
[2023-02-17 22:33] LABS: Cast Urine Automated >30 /lpf (0-5)
[2023-02-17] MEDS ORDERED: POTASSIUM CHLORIDE PWD 20 MEQ PACK PO STA (22:33)
--- NOTE | 2023-02-17 22:33 | History & Physical Report ---
Date of Service February 17, 2023 Assessment & Plan (1) Hypokalemia: Plan: Hypokalemia, ARF, AGMA Secondary to decreased p.o. intake secondary to worsening achalasia Syncope likely secondary to orthostasis secondary to clinical dehydration rule out arrhythmia, obstructive cardiac pathology. COPD, pulmonary status at baseline, patient ran out off Spiriva inhaler prescribed by PCP last year chronic anemia, hemoglobin currently within normal limits likely secondary to hemoconcentration ongoing tobacco abuse Medical telemetry Replace potassium Baseline UA Monitor creatinine response to IVF GI consult re: worsening achalasia N.p.o. after midnight in anticipation of endoscopic intervention Check orthostatic vitals TTE Re: Syncope Resume home Spiriva Rx Nicotine patch DVT prophylaxis. SCDs for now re: possible endoscopic intervention Full code Patient request for his brother to be updated of progress. Mr. Vicente Corey, contact number [phone]. Text document was generated using [employer] voice recognition software. It may contain grammatical or spelling errors. Kindly contact undersigned for clarification of any documentation item in question. History of Present Illness Chief Complaint: Syncope, weakness Primary Care Provider: [facility] Practice History obtained from patient and records. Medical history significant for COPD, achalasia, chronic anemia (baseline hemoglobin of 12), ongoing tobacco abuse. Last confinement March 2022 for aspiration pneumonia and achalasia status post EGD status post dilatation and Botox injection. Outpatient high resolution esophageal motility study last April 2022 consistent with type I achalasia. Patient unable to follow-up with GI to discuss results and subsequent plan due to transport and financial constraints. Patient could not be reached by office as per outpatient documentation. A few months following following March 2022 confinement, patient noted swallowing issues again more with solids. Patient having trouble keeping solids down. Worsening symptoms over the last couple of months with both solids and liquids. Shortness of breath from weakness. No actual abdominal pain. Denies constipation/diarrhea symptoms. 20 pound weight loss in the last few months as per patient. Episodic headache symptoms. Patient had a syncopal event today after getting up from bed. Patient brought to the ER for evaluation. Medical History as above March 2022 EGD suspicious for achalasia status postdilatation and Botox injection. Normal stomach and duodenum Surgical History : None Family History : Heart disease Personal/Social history : Half pack daily, occasional EtOH intake, prior [employer] employee, currently unemployed, lives with brother Allergies Allergy/AdvReac Type Severity Reaction Status Date / Time mushroom AdvReac Intermediate Hives Verified 02/17/23 19:19 Home Medications Medication Instructions Recorded Confirmed Type No Known Home Medications 02/17/23 02/17/23 History Past Med/Surg History Medical History (Updated 02/18/23 @ 08:40 by Wyatt Black MD) Encounter for pre-operative examination Tobacco abuse Achalasia Surgical History No pertinent past surgical history Family History Mother , 55 [place] Myocardial infarction Diabetes Father , 77 -[place]+ Myocardial infarction Diabetes Brother , [place] - 50s Myocardial infarction Brother No problems noted. Social History Smoking Status: Current every day smoker Tobacco Type: Cigarettes packs per day: 1; Cigarettes Per Day: 10; Second Hand Exposure: No; Do You Dip or Chew Tobacco: No; Hx Alcohol Use: Yes Alcohol type: hard liquor Alcohol type Comment: Holidays only Hx Substance Use: No Preferred Language: Australian Communication Ability: Effective Court Worker Required: No Beliefs That Will Affect Care: None marital status: Single Current Living Situation: Family Current Living Situation Comment: lives with brother Vicente Feels Safe at Home: Yes Safety Concerns: Feels Safe At This Time Assistive Devices: Walker Review of Systems Review of Systems: As per HPI, all other systems reviewed and negative Physical Exam Physical Exam: GENERAL: Anxious, no respiratory distress SKIN: Pallor,, warm HEENT: Pale palpebral conjunctivae, no ptosis, dry buccal mucosa NECK : Supple, no tenderness CHEST : Decreased breath sounds, no tenderness HEART : Bradycardic, no obvious murmurs ABDOMEN: Some distention, nontender EXTREMITIES : No LE swelling/tenderness, no other conspicuous deformities noted NEUROLOGIC : Coherent, no facial asymmetry, no other gross focality Results & Data Results & Data Vital Signs (Past 12 Hours) Vital Signs Temp Pulse Pulse Resp BP BP Pulse Ox 02/17/23 22:00 65 18 133/69 97 02/17/23 21:12 61 02/17/23 20:00 58 L 18 122/83 99 02/17/23 18:28 78 18 111/91 98 02/17/23 17:42 96 02/17/23 17:21 93 H 02/17/23 16:52 36.0 C L 109 H 20 109/88 99 O2 Del Method 02/17/23 22:00 Room Air 02/17/23 21:12 02/17/23 20:00 Room Air 02/17/23 18:28 Room Air 02/17/23 17:42 Room Air 02/17/23 17:21 02/17/23 16:52 Room Air Laboratory Results Laboratory Results WBC 11.84 K/ul (4.8-10.8) H 02/17/23 16:55 RBC 5.99 M/uL (4.70-6.10) 02/17/23 16:55 Hgb 17.8 g/dl (14.0-18.0) 02/17/23 16:55 Hct 48.6 % (42.0-52.0) 02/17/23 16:55 MCV 81.1 fL (80.0-100.0) 02/17/23 16:55 MCH 29.7 pg (25.0-34.0) 02/17/23 16:55 MCHC 36.6 g/dL (32.0-36.0) H 02/17/23 16:55 RDW Std Deviation 38.6 fL (36.4-46.3) 02/17/23 16:55 RDW Coeff of Marcelo 13.3 % (11.5-14.5) 02/17/23 16:55 Plt Count 441 K/uL (130-400) H 02/17/23 16:55 MPV 10.4 fL (9.4-12.4) 02/17/23 16:55 Immature Gran % (Auto) 0.3 % 02/17/23 16:55 Neut % (Auto) 63.6 % 02/17/23 16:55 Lymph % (Auto) 25.4 % 02/17/23 16:55 Kimball % (Auto) 8.7 % 02/17/23 16:55 Eos % (Auto) 1.2 % 02/17/23 16:55 Baso % (Auto) 0.8 % 02/17/23 16:55 Neut # (Auto) 7.53 K/uL (1.40-6.50) H 02/17/23 16:55 Lymph # (Auto) 3.01 K/uL (1.20-3.40) 02/17/23 16:55 Kimball # (Auto) 1.03 K/uL (0.11-0.59) H 02/17/23 16:55 Eos # (Auto) 0.14 K/uL (0.00-0.50) 02/17/23 16:55 Baso # (Auto) 0.09 K/uL (0.00-0.20) 02/17/23 16:55 Immature Gran # (Auto) 0.04 K/uL (0.01-0.20) 02/17/23 16:55 PT 11.9 Seconds (9.0-12.0) 02/17/23 16:55 INR 1.1 (0.9-1.1) 02/17/23 16:55 APTT 27 Seconds (21-31) 02/17/23 16:55 PTT Ratio 1.0 02/17/23 16:55 Sodium 134 mmol/L (136-145) L 02/17/23 16:55 Potassium 2.2 mmol/L (3.5-5.1) L* 02/17/23 16:55 Chloride 96 mmol/L (98-107) L 02/17/23 16:55 Carbon Dioxide 26 mmol/L (21-32) 02/17/23 16:55 Anion Gap 12 (3-11) H 02/17/23 16:55 BUN 40 mg/dl (6-23) H 02/17/23 16:55 Creatinine 2.03 mg/dl (0.6-1.4) H 02/17/23 16:55 Est Cr Clr Drug Dosing 39.3 ml/min 02/17/23 16:55 Est GFR ( Amer) 41.2 ml/min 02/17/23 16:55 Est GFR (Non-Af Amer) 35.6 ml/min 02/17/23 16:55 BUN/Creatinine Ratio 19.7 (10-20) 02/17/23 16:55 Glucose 140 mg/dl (70-99(Fasting)) H 02/17/23 16:55 Calcium 9.7 mg/dl (8.6-10.3) 02/17/23 16:55 Magnesium 2.3 mg/dl (1.7-2.4) 02/17/23 16:55 Total Bilirubin 1.1 mg/dl (0.2-1.0) H 02/17/23 16:55 AST 31 U/L (13-39) 02/17/23 16:55 ALT 30 U/L (7-52) 02/17/23 16:55 Alkaline Phosphatase 104 U/L (34-104) 02/17/23 16:55 Troponin I High Sens 8.9 pg/ml (0-20) 02/17/23 16:55 Total Protein 7.9 gm/dl (6.0-8.3) 02/17/23 16:55 Albumin 4.5 gm/dl (3.4-5.0) 02/17/23 16:55 Globulin 3.4 gm/dl (2.5-4.0) 02/17/23 16:55 Albumin/Globulin Ratio 1.3 (0.9-2) 02/17/23 16:55 TSH 0.552 uIu/ml (0.300-4.500) 02/17/23 16:55 Urine Color Dark Yellow 02/17/23 22:01 Urine Appearance Clear (Clear) 02/17/23 22:01 Urine pH 6.0 (4.5-7.5) 02/17/23 22:01 Ur Specific [place] 1.028 (1.000-1.030) 02/17/23 22:01 Urine Protein 1+ (Negative) H 02/17/23 22:01 Urine Glucose (UA) Negative (Negative) 02/17/23 22:01 Urine Ketones Trace (Negative) H 02/17/23 22:01 Urine Blood Negative (Negative) 02/17/23 22: Urine Nitrite Positive (Negative) A 02/17/23 22:01 Urine Bilirubin 2+ (Negative) H 02/17/23 22:01 Urine Urobilinogen Negative (Negative) 02/17/23 22:01 Ur Leukocyte Esterase Trace (Negative) H 02/17/23 22:01 Adenovirus (PCR) Not Detected (NotDetected) 02/17/23 18:00 B. pertussis DNA (PCR) Not Detected (NotDetected) 02/17/23 18:00 B.parapertussis DNA PCR Not Detected (NotDetected) 02/17/23 18:00 C. pneumoniae DNA (PCR) Not Detected (NotDetected) 02/17/23 18:00 Coronavirus OC43 (PCR) Not Detected (NotDetected) 02/17/23 18:00 Coronavirus HKU1 (PCR) Not Detected (NotDetected) 02/17/23 18:00 Coronavirus 229E (PCR) Not Detected (NotDetected) 02/17/23 18:00 SARS-CoV-2 (PCR) Not Detected (NotDetected) 02/17/23 18:00 Coronavirus NL63 (PCR) Not Detected (NotDetected) 02/17/23 18:00 Human Metapneumovir PCR Not Detected (NotDetected) 02/17/23 18:00 Influenza Type A (PCR) Not Detected (NotDetected) 02/17/23 18:00 Influenza Type B (PCR) Not Detected (NotDetected) 02/17/23 18:00 M. pneumoniae (PCR) Not Detected (NotDetected) 02/17/23 18:00 Parainfluenza 1 (PCR) Not Detected (NotDetected) 02/17/23 18:00 Parainfluenza 2 (PCR) Not Detected (NotDetected) 02/17/23 18:00 Parainfluenza 3 (PCR) Not Detected (NotDetected) 02/17/23 18:00 Parainfluenza 4 (PCR) Not Detected (NotDetected) 02/17/23 18:00 RSV (PCR) Not Detected (NotDetected) 02/17/23 18:00 Entero/Rhino (PCR) Not Detected (NotDetected) 02/17/23 18:00 Impressions Chest X-Ray 02/17/23 17:18 .XR chest 1V not portable CLINICAL HISTORY: Chest pain, nonspecific. COMPARISON STUDY: Chest radiograph and chest CT March 17, 2022. FINDINGS: Lung volumes are normal. No consolidation is identified. There is no pneumothorax or pleural effusion. Cardiac size is normal. Mediastinal contours are normal. There is no evidence for pulmonary edema. IMPRESSION: No acute cardiopulmonary findings. ACT 112: Negative or not required by law. Electronically signed by: Samson Majano M.D. 02/17/2023 6:23 PM Abdomen/Pelvis CT 02/17/23 18:17 CT OF THE ABDOMEN AND PELVIS WITHOUT CONTRAST CLINICAL HISTORY: vomiting, weight loss, darlene COMPARISON STUDY: CT of the abdomen and pelvis March 17, 2022. TECHNIQUE: Axial images of the abdomen and pelvis were obtained without IV contrast. Images were reviewed in the axial, sagittal, and coronal planes. Automated exposure control was utilized for the study. A dose lowering technique was utilized adhering to the principles of ALARA. FINDINGS: The distal esophagus is dilated and fluid-filled. The appearance is similar to CTs of October 06, 2021 and March 17, 2022. This was depicted on barium swallow January 28, 2022 and is likely related to achalasia. Hepatic steatosis is noted. There are calcified granulomas within the spleen. Adrenal glands, kidneys and pancreas are unremarkable. There is no hydronephrosis. No biliary or pancreatic ductal dilatation is present. No evidence for a bowel obstruction. No renal or ureteral calculi are present. There is no hydronephrosis. Small amount of layering calcifications within the bladder are present. Prostate is mildly enlarged. There is no lymphadenopathy. No ascites. No fluid collections. Appendix is normal. No fracture or suspicious osseous. IMPRESSION: 1. No acute process within the abdomen or pelvis on unenhanced exam. 2. No bowel obstruction. 3. No renal or ureteral calculi. No hydronephrosis. Minimal layering calcifications/small calculi within the bladder. Enlarged prostate. 4. Hepatic steatosis. 5. Dilated, fluid-filled distal esophagus, as shown on prior exams. This is likely due to achalasia. Although less likely, an underlying mucosal lesion cannot be excluded by CT. ACT 112: Negative or not required by law. Electronically signed by: Samson Majano M.D. 02/17/2023 7:20 PM Diagnostic Findings EKG as per my interpretation :Rate 100, NSR, LAD, LAFB, LVH, no ischemia
[2023-02-17] MEDS ORDERED: LORazepam 0.5 MG TAB PO PRN (22:38)
[2023-02-17] MEDS ORDERED: PROMETHAZINE HCL 6.25 MG in SODIUM CHLORIDE 0.9% 50 ML IV PRN (22:38)
[2023-02-17] MEDS ORDERED: NICOTINE 21 MG/24 HR TDSY TD STA (22:53)
--- NOTE | 2023-02-17 23:47 | CT Scan Report ---
Exam(s): CT HEAD Without Contrast EXAM: CT Head Without Intravenous Contrast CLINICAL HISTORY: Reason for exam: eugene. TECHNIQUE: Axial computed tomography images of the head/brain without intravenous contrast. CTDI is 37.51 mGy and DLP is 938 mGy-cm. Automated exposure control was utilized for the study. A dose lowering technique was utilized adhering to the principles of ALARA. COMPARISON: No relevant prior studies available. FINDINGS: No acute intracranial hemorrhage. No midline shift or mass effect. The territorial brown-white matter differentiation is maintained throughout. Age-related cerebral volume loss. Periventricular and subcortical white matter hypoattenuation, consistent with chronic microangiopathy. The visualized orbits appear grossly unremarkable. The calvarium is intact. The visualized paranasal sinuses and mastoid air cells are grossly clear. IMPRESSION: No acute intracranial hemorrhage, midline shift, or mass effect. Electronically signed by: Louis Francisco MD 02/17/23 23:46 PM
[2023-02-17] MEDS ORDERED: ACETAMINOPHEN 325 MG TAB PO PRN (23:51)
[2023-02-18] MEDS: POTASSIUM CHLORIDE / WTR 10 MEQ/100 ML PLCT IV SCH ×3 (01:04→04:55)
[2023-02-18] MEDS ORDERED: POTASSIUM CHLORIDE PWD 20 MEQ PACK PO STA (02:49)
[2023-02-18 06:30] LABS: BUN Creatinine Ratio 22.5 (10-20); Calcium 8.8 mg/dl (8.6-10.3); Creatinine Clr Calc Pharmacy 56.2 ml/min; Est GFR (African American) 63.5 ml/min; Est GFR (Non-African American) 54.8 ml/min; Potassium 3.7 mmol/L (3.5-5.1)
[2023-02-18 06:59] LABS: Basophils % (auto) 0.8 %; Eosinophils # (auto) 0.17 K/uL (0.00-0.50); Eosinophils % (auto) 1.4 %; Hematocrit (blood only) 38.5 % (42.0-52.0); Immature Granulocytes # (auto) 0.05 K/uL (0.01-0.20); Immature Granulocytes % (auto) 0.4 %; Lymphocytes # (auto) 4.47 K/uL (1.20-3.40); Lymphocytes % (auto) 36.4 %; Mean Corpuscular Hemoglobin 29.5 pg (25.0-34.0); Mean Corpuscular Hgb Conc 36.4 g/dL (32.0-36.0); Mean Corpuscular Volume 81.2 fL (80.0-100.0); Mean Platelet Volume 10.5 fL (9.4-12.4); Monocytes # (auto) 1.18 K/uL (0.11-0.59); Monocytes % (auto) 9.6 %; Neutrophils % (auto) 51.4 %; Platelet Count 363 K/uL (130-400); RDW Coefficient of Variation 13.3 % (11.5-14.5); RDW Standard Deviation 39.5 fL (36.4-46.3); Red Blood Count 4.74 M/uL (4.70-6.10); White Blood Count 12.27 K/ul (4.8-10.8)
[2023-02-18] MEDS ORDERED: LACTATED RINGER'S 1,000 ML IV ONE (07:13)
[2023-02-18] MEDS: NICOTINE 21 MG/24 HR TDSY TD SCH (08:18)
--- NOTE | 2023-02-18 08:36 | Gastrointestinal Consultation ---
Date of Consultation February 18, 2023 Assessment & Plan (1) DUNG (acute kidney injury): (2) Syncope: (3) Achalasia: Pt is a 57 yo male presented w syncope, c/o worsening dysphagia since last , appetite and weight loss. He has hx of Type I achalasia dx'd via esophageal motility study in April 2022, prior to that had EGD w dilation to 20mm and botox injection which helped w swallowing. - Keep NPO - Plan for repeat EGD w botox injection today - PPI daily - GI recs after EGD completed - Further syncope workup per primary team Supervising Physician Co-Signing Physician Notes I saw and evaluated the patient. He has known history of achalasia and was previously seen by department follow-up. In the past we recommended a number of interventions to include a motility study, evaluation by surgery and perhaps ev en endoscopic therapy with a POEM. Unfortunately the patient has been noncompliant with these recommendations. The patient recalls that his symptoms did improve significantly with Botox injection last year thus we will do a repeat upper endoscopy today with Botox injection and probable esophageal dilation. We discussed the increased risk of perioperative complications given the patient's history of achalasia, these risks include bleeding infection perforation pain continued difficulty with swallowing, aspiration and the need for follow-up studies. History of Present Illness Reason for Consultation: Worsening achalasia Requesting Physician: Dr. Kaiden Higuera Attending Physician: Dr. Raine Anderson History of Present Illness Pt is a 57 yo male w PMHx of anemia, pneumonia, achalasia, who presented yesterday w syncopal episode. He has lost weight, unable to keep foods or liquids down. Attributes this to not being able to swallow well. Has been dx'd with Type I achalasia via esophageal motility in April 2022 but never f/u in GI clinic. Had EGD done in Mar 2022 prior to his motility study, w dilation up to 20mm done and botox injection to esophagus. He states this procedure helped w swallowing until last December 2022 around Thanksgiving when he felt his swallowing is problematic again. He denies any CP, SOB, abd pain, n/v or changes in his bowel habits otherwise. . Labs reviewed - mild leukocytosis, no anemia, no coagulopathy. Hypokalemia (2.2 -> 3.7) repleted, has DUNG w Cr 2 ->1.4. + UA CT head, CXR unremarkable CT abd/pelvis: 1. No acute process within the abdomen or pelvis on unenhanced exam. 2. No bowel obstruction. 3. No renal or ureteral calculi. No hydronephrosis. Minimal layering calcifications/small calculi within the bladder. Enlarged prostate. 4. Hepatic steatosis. 5. Dilated, fluid-filled distal esophagus, as shown on prior exams. This is likely due to achalasia. Although less likely, an underlying mucosal lesion cannot be excluded by CT. Allergies Allergy/AdvReac Type Severity Reaction Status Date / Time mushroom AdvReac Intermediate Hives Verified 02/17/23 19:19 Home Medications Medication Instructions Recorded Confirmed Type No Known Home Medications 02/17/23 02/17/23 History Patient History Medical History (Updated 02/18/23 @ 08:40 by Wyatt Black MD) Encounter for pre-operative examination Tobacco abuse Achalasia Surgical History No pertinent past surgical history Family History Mother , 55 [place] Myocardial infarction Diabetes Father , 77 -[place]+ Myocardial infarction Diabetes Brother , [place] - 50s Myocardial infarction Brother No problems noted. Social History Smoking Status: Current every day smoker Tobacco Type: Cigarettes packs per day: 1; Cigarettes Per Day: 10; Second Hand Exposure: No; Do You Dip or Chew Tobacco: No; Hx Alcohol Use: Yes Alcohol type: hard liquor Alcohol type Comment: Holidays only Hx Substance Use: No Preferred Language: Uzbek Communication Ability: Effective Lacquer Coater Required: No Beliefs That Will Affect Care: None marital status: Single Current Living Situation: Family Current Living Situation Comment: lives with brother Vicente Feels Safe at Home: Yes Safety Concerns: Feels Safe At This Time Assistive Devices: None Review of Systems Review of Systems: All systems reviewed & are unremarkable except as noted in HPI & below Physical Exam Constitutional: WD/WN, vitals as above + disheveled, cooperative and comfortable Eyes: PERRL, conjunctivae normal, anicteric sclerae ENMT: external ear and nose normal, oropharynx normal Respiratory: normal respiratory effort, lungs clear to auscultation Cardiovascular: RRR, no murmur, no edema Gastrointestinal (Abdomen): normal bowel sounds, soft, nontender, no hepatosplenomegaly Skin: no rashes, warm and dry no jaundice Psychiatric: A+Ox3, euthymic affect Lymphatic: no lymphedema Results & Data Vital Signs (Past 12 Hours) Vital Signs Temp Pulse Pulse Resp BP Pulse Ox Pulse Ox 02/18/23 07:53 36.6 C 55 L 20 104/65 100 02/18/23 06:52 57 L 02/18/23 03:52 36.4 C L 63 18 118/75 100 02/18/23 01:00 63 18 134/82 99 02/18/23 01:00 99 02/17/23 23:52 60 02/17/23 22:00 65 18 133/69 97 02/17/23 21:12 61 O2 Del Method O2 Del Method 02/18/23 07:53 Room Air 02/18/23 06:52 02/18/23 03:52 Room Air 02/18/23 01:00 Room Air 02/18/23 01:00 Room Air 02/17/23 23:52 02/17/23 22:00 Room Air 02/17/23 21:12 (2) Syncope Syncope type: unspecified Qualified Code(s): R55 - Syncope and collapse
--- NOTE | 2023-02-18 08:38 | Anesthesiology Consultation ---
Date of Service February 18, 2023 Assessment & Plan (1) Encounter for pre-operative examination: Chart Review Chart Review: Acceptable Risk for Surgery, Patient NOT seen in Pre Admission Testing and entry engineer initiated Consults Requested none Proposed Anesthesia Anesthesia Type: MAC History Surgery Operation Date: 02/18/23 16:30 Proposed Procedures p Esophagogastroduodenoscopy Dr Justin Anderson, DO Height/Weight Height: 5 ft 8 in Weight: 69.4 kg Allergies Allergy/AdvReac Type Severity Reaction Status Date / Time mushroom AdvReac Intermediate Hives Verified 02/17/23 19:19 Medications Home Medications Medication Instructions Recorded Confirmed Last Taken No Known Home Medications 02/17/23 02/17/23 Unknown Active Medications Generic Name Dose Route Start Last Admin Trade Name Freq PRN Reason Stop Dose Admin Lactated Ringer's 1,000 mls @ 80 mls/hr 02/18/23 07:13 02/18/23 08:19 Lr IV 02/18/23 19:42 80 mls/hr .[id number] ONE Administration Miscellaneous 1 each 02/18/23 08:59 02/18/23 08:19 Remove Nicoderm Patch N/A 03/20/23 08:58 1 each [id number] CORAL Administration Nicotine 21 mg 02/18/23 09:00 02/18/23 08:18 Nicotine 21 Mg/24 Hr Tdsy TD 03/20/23 08:59 21 mg QAM CORAL Administration Past Medical History Medical History (Updated 02/18/23 @ 08:40 by Wyatt Black MD) Encounter for pre-operative examination Tobacco abuse Achalasia Past Family History Family History Mother , 55 [place] Myocardial infarction Diabetes Father , 77 -[place]+ Myocardial infarction Diabetes Brother , [place] - 50s Myocardial infarction Brother No problems noted. Past Surgical History Surgical History No pertinent past surgical history Social History Smoking Status: Current every day smoker tobacco type: cigarettes Smoking cigarettes per day: 10 Do You Dip or Chew Tobacco: No Hx Alcohol Use: Yes Alcohol type: hard liquor alcohol intake frequency: holidays/special occasions only Hx Substance Use: No Physical Exam Vital Signs Last Vital Signs Temp 36.6 C 02/18/23 07:53 Pulse 55 L 02/18/23 07:53 Resp 20 02/18/23 07:53 BP 104/65 02/18/23 07:53 Pulse Ox 100 02/18/23 07:53 O2 Del Method Room Air 02/18/23 07:53 Testing Laboratory Results 02/18/23 05:34 02/18/23 05:34 PT 11.9 Seconds (9.0-12.0) 02/17/23 16:55 INR 1.1 (0.9-1.1) 02/17/23 16:55 APTT 27 Seconds (21-31) 02/17/23 16:55 Urine Color Dark Yellow 02/17/23 22:01 Urine Appearance Clear (Clear) 02/17/23 22:01 Urine pH 6.0 (4.5-7.5) 02/17/23 22:01 Ur Specific [place] 1.028 (1.000-1.030) 02/17/23 22:01 Urine Protein 1+ (Negative) H 02/17/23 22:01 Urine Glucose (UA) Negative (Negative) 02/17/23 22:01 Urine Ketones Trace (Negative) H 02/17/23 22:01 Urine Nitrite Positive (Negative) A 02/17/23 22:01 Ur Leukocyte Esterase Trace (Negative) H 02/17/23 22:01 Urine WBC (Auto) 1-5 /hpf (0-5) 02/17/23 22:01 Urine RBC (Auto) 5-10 /hpf (0-4) H 02/17/23 22:01 U Hyaline Cast (Auto) >30 /lpf (0-5) H 02/17/23 22:01 U Epithel Cells (Auto) >30 /lpf (0-5) H 02/17/23 22:01 Urine Bacteria (Auto) Negative (Negative) 02/17/23 22:01 Electrocardiogram Date: 02/17/23 ID:[id number] 17-FEB-2023 16:58:16 [facility]-EDSTAT ROUTINE RETRIEVAL Normal sinus rhythm Left axis deviation Minimal voltage criteria for LVH, may be normal variant ( Bari product ) Abnormal ECG When compared with ECG of 17-MAR-2022 12:24, QRS duration has increased 25mm/s10mm/[id number]: [id number] by: REFERRED SELF Unconfirmed Vent. rate 99 BPM MA interval 170 ms QRS duration 106 ms QT/QTc 354/454 ms Chest X-Ray Date: 02/17/23 XR chest 1V not portable CLINICAL HISTORY: Chest pain, nonspecific. COMPARISON STUDY: Chest radiograph and chest CT March 17, 2022. FINDINGS: Lung volumes are normal. No consolidation is identified. There is no pneumothorax or pleural effusion. Cardiac size is normal. Mediastinal contours are normal. There is no evidence for pulmonary edema. IMPRESSION: No acute cardiopulmonary findings.
[2023-02-18] MEDS ORDERED: BOTULINUM TOXIN TYPE A 100 UNIT VIAL IM ONE (09:19)
--- NOTE | 2023-02-18 09:40 | Hospitalist Progress Note ---
Date of Service February 18, 2023 Assessment & Plan (1) Hypokalemia: Plan: Hypokalemia, ARF, AGMA Secondary to decreased p.o. intake secondary to worsening achalasia Monitor creatinine response to IVF -> Creatinine improved Baseline UA obtained Syncope likely secondary to orthostasis secondary to clinical dehydration rule out arrhythmia, obstructive cardiac pathology. COPD, pulmonary status at baseline, patient ran out off Spiriva inhaler prescribed by PCP last year chronic anemia, hemoglobin currently within normal limits likely secondary to hemoconcentration Medical telemetry Check orthostatic vitals TTE Re: Syncope - mild concentric LVH. LV wall motion is normal. LVEF 55%. Aortic valve sclerosis mild, without significant aortic valvular stenosis. There is an echodensity adjacent to the left atrium that is compatible with a prominent fluid-filled esophagus as described on the report of the CT of the abdomen and pelvis dated February 17, 2023. Replace potassium, electrolytes as needed GI consulted re: worsening achalasia - Per GI - Pt has known history of achalasia and was previously seen by department follow-up. In the past we recommended a number of interventions to include a motility study, evaluation by surgery and perhaps even endoscopic therapy with a POEM. Unfortunately the patient has been noncompliant with these recommendations. The patient recalls that his symptoms did improve significantly with Botox injection last year thus we will do a repeat upper endoscopy today with Botox injection and probable esophageal dilation. We discussed the increased risk of perioperative complications given the patient's history of achalasia, these risks include bleeding infection perforation pain continued difficulty with swallowing, aspiration and the need for follow-up studies. 02/18/2023 The patient underwent upper endoscopy today, dilated the esophagus to 60 [place] today and injected the lower esophageal sphincter with 100 units of Botox. Recommendations Liquid diet for 48 hours then advance as tolerated Patient should follow-up with gastroenterology as an outpatient in 6 to 9 months or sooner if needed Ongoing tobacco abuse, COPD Resume home Spiriva Rx Nicotine patch DVT prophylaxis. SCDs for now Full code Patient's contact - brother: Mr. Vicente Corey, number [phone]. Admission and Anticipated Discharge Date Admission Date: February 17, 2023 Subjective Pt seen in follow up of difficulty swallowing, achalasia, low electrolytes GI consulted - underwent dilatation of esophagus and botox inj. Currently sitting up in the bed, in no acute distress. Still having difficulty with clear liquids, will continue to closely monitor and will advance diet slowly. Replace electrolytes. No fevers chills chest pain shortness of breath. Review of Systems Review of Systems: All systems reviewed & are unremarkable except as noted in Subjective Physical Exam Physical Exam: GENERAL: WD/WN M in NAD HEENT: NC/AT, palpebral conjunctivae, mmm NECK : Supple, no tenderness CHEST : Decreased breath sounds, no tenderness HEART : RRR, no obvious murmurs ABDOMEN: Some distention, nontender EXTREMITIES : No LE swelling/tenderness, moves extremities NEUROLOGIC : awake, alert, answers appropriately. no facial asymmetry, moves ext remities SKIN: Pallor, warm Results & Data Results & Data Vital Signs (Past 12 Hours) Vital Signs Temp Pulse Pulse Resp BP Pulse Ox Pulse Ox 02/18/23 07:53 36.6 C 55 L 20 104/65 100 02/18/23 06:52 57 L 02/18/23 03:52 36.4 C L 63 18 118/75 100 02/18/23 01:00 63 18 134/82 99 02/18/23 01:00 99 02/17/23 23:52 60 02/17/23 22:00 65 18 133/69 97 O2 Del Method O2 Del Method 02/18/23 07:53 Room Air 02/18/23 06:52 02/18/23 03:52 Room Air 02/18/23 01:00 Room Air 02/18/23 01:00 Room Air 02/17/23 23:52 02/17/23 22:00 Room Air Laboratory Results 02/18/23 02/17/23 02/17/23 Range/Units 05:34 22:01 18:00 WBC 12.27 H (4.8-10.8) K/ul RBC 4.74 (4.70-6.10) M/uL Hgb 14.0 D (14.0-18.0) g/dl Hct 38.5 L (42.0-52.0) % MCV 81.2 (80.0-100.0) fL MCH 29.5 (25.0-34.0) pg MCHC 36.4 H (32.0-36.0) g/dL RDW Std Deviation 39.5 (36.4-46.3) fL RDW Coeff of Marcelo 13.3 (11.5-14.5) % Plt Count 363 (130-400) K/uL MPV 10.5 (9.4-12.4) fL Immature Gran % (Auto) 0.4 % Neut % (Auto) 51.4 % Lymph % (Auto) 36.4 % [place] % (Auto) 9.6 % Eos % (Auto) 1.4 % Baso % (Auto) 0.8 % Neut # (Auto) 6.30 (1.40-6.50) K/uL Lymph # (Auto) 4.47 H (1.20-3.40) K/uL [place] # (Auto) 1.18 H (0.11-0.59) K/uL Eos # (Auto) 0.17 (0.00-0.50) K/uL Baso # (Auto) 0.10 (0.00-0.20) K/uL Immature Gran # (Auto) 0.05 (0.01-0.20) K/uL PT (9.0-12.0) Seconds INR (0.9-1.1) APTT (21-31) Seconds PTT Ratio Sodium 133 L (136-145) mmol/L Potassium 3.7 D (3.5-5.1) mmol/L Chloride 102 (98-107) mmol/L Carbon Dioxide 23 (21-32) mmol/L Anion Gap 8 (3-11) BUN 32 H (6-23) mg/dl Creatinine 1.42 H D (0.6-1.4) mg/dl Est Cr Clr Drug Dosing 56.2 ml/min Est GFR ( Amer) 63.5 ml/min Est GFR (Non-Af Amer) 54.8 ml/min BUN/Creatinine Ratio 22.5 H (10-20) Glucose 103 H (70-99(Fasting)) mg/dl Calcium 8.8 (8.6-10.3) mg/dl Magnesium (1.7-2.4) mg/dl Total Bilirubin (0.2-1.0) mg/dl AST (13-39) U/L ALT (7-52) U/L Alkaline Phosphatase (34-104) U/L Troponin I High Sens (0-20) pg/ml Total Protein (6.0-8.3) gm/dl Albumin (3.4-5.0) gm/dl Globulin (2.5-4.0) gm/dl Albumin/Globulin Ratio (0.9-2) TSH (0.300-4.500) uIu/ml Urine Color Dark Yellow Urine Appearance Clear (Clear) Urine pH 6.0 (4.5-7.5) Ur Specific [place] 1.028 (1.000-1.030) Urine Protein 1+ H (Negative) Urine Glucose (UA) Negative (Negative) Urine Ketones Trace H (Negative) Urine Blood Negative (Negative) Urine Nitrite Positive A (Negative) Urine Bilirubin 2+ H (Negative) Urine Urobilinogen Negative (Negative) Ur Leukocyte Esterase Trace H (Negative) Urine WBC (Auto) 1-5 (0-5) /hpf Urine RBC (Auto) 5-10 H (0-4) /hpf U Hyaline Cast (Auto) >30 H (0-5) /lpf U Epithel Cells (Auto) >30 H (0-5) /lpf Urine Bacteria (Auto) Negative (Negative) Granular Casts 1-5 H (0) /lpf Adenovirus (PCR) Not Detected (NotDetected) B. pertussis DNA (PCR) Not Detected (NotDetected) B.parapertussis DNA PCR Not Detected (NotDetected) C. pneumoniae DNA (PCR) Not Detected (NotDetected) Coronavirus OC43 (PCR) Not Detected (NotDetected) Coronavirus HKU1 (PCR) Not Detected (NotDetected) Coronavirus 229E (PCR) Not Detected (NotDetected) SARS-CoV-2 (PCR) Not Detected (NotDetected) Coronavirus NL63 (PCR) Not Detected (NotDetected) Human Metapneumovir PCR Not Detected (NotDetected) Influenza Type A (PCR) Not Detected (NotDetected) Influenza Type B (PCR) Not Detected (NotDetected) M. pneumoniae (PCR) Not Detected (NotDetected) Parainfluenza 1 (PCR) Not Detected (NotDetected) Parainfluenza 2 (PCR) Not Detected (NotDetected) Parainfluenza 3 (PCR) Not Detected (NotDetected) Parainfluenza 4 (PCR) Not Detected (NotDetected) RSV (PCR) Not Detected (NotDetected) Entero/Rhino (PCR) Not Detected (NotDetected) 02/17/23 Range/Units 16:55 WBC 11.84 H (4.8-10.8) K/ul RBC 5.99 (4.70-6.10) M/uL Hgb 17.8 (14.0-18.0) g/dl Hct 48.6 (42.0-52.0) % MCV 81.1 (80.0-100.0) fL MCH 29.7 (25.0-34.0) pg MCHC 36.6 H (32.0-36.0) g/dL RDW Std Deviation 38.6 (36.4-46.3) fL RDW Coeff of Marcelo 13.3 (11.5-14.5) % Plt Count 441 H (130-400) K/uL MPV 10.4 (9.4-12.4) fL Immature Gran % (Auto) 0.3 % Neut % (Auto) 63.6 % Lymph % (Auto) 25.4 % [place] % (Auto) 8.7 % Eos % (Auto) 1.2 % Baso % (Auto) 0.8 % Neut # (Auto) 7.53 H (1.40-6.50) K/uL Lymph # (Auto) 3.01 (1.20-3.40) K/uL [place] # (Auto) 1.03 H (0.11-0.59) K/uL Eos # (Auto) 0.14 (0.00-0.50) K/uL Baso # (Auto) 0.09 (0.00-0.20) K/uL Immature Gran # (Auto) 0.04 (0.01-0.20) K/uL PT 11.9 (9.0-12.0) Seconds INR 1.1 (0.9-1.1) APTT 27 (21-31) Seconds PTT Ratio 1.0 Sodium 134 L (136-145) mmol/L Potassium 2.2 L* (3.5-5.1) mmol/L Chloride 96 L (98-107) mmol/L Carbon Dioxide 26 (21-32) mmol/L Anion Gap 12 H (3-11) BUN 40 H (6-23) mg/dl Creatinine 2.03 H (0.6-1.4) mg/dl Est Cr Clr Drug Dosing 39.3 ml/min Est GFR ( Amer) 41.2 ml/min Est GFR (Non-Af Amer) 35.6 ml/min BUN/Creatinine Ratio 19.7 (10-20) Glucose 140 H (70-99(Fasting)) mg/dl Calcium 9.7 (8.6-10.3) mg/dl Magnesium 2.3 (1.7-2.4) mg/dl Total Bilirubin 1.1 H (0.2-1.0) mg/dl AST 31 (13-39) U/L ALT 30 (7-52) U/L Alkaline Phosphatase 104 (34-104) U/L Troponin I High Sens 8.9 (0-20) pg/ml Total Protein 7.9 (6.0-8.3) gm/dl Albumin 4.5 (3.4-5.0) gm/dl Globulin 3.4 (2.5-4.0) gm/dl Albumin/Globulin Ratio 1.3 (0.9-2) TSH 0.552 (0.300-4.500) uIu/ml Urine Color Urine Appearance (Clear) Urine pH (4.5-7.5) Ur Specific [place] (1.000-1.030) Urine Protein (Negative) Urine Glucose (UA) (Negative) Urine Ketones (Negative) Urine Blood (Negative) Urine Nitrite (Negative) Urine Bilirubin (Negative) Urine Urobilinogen (Negative) Ur Leukocyte Esterase (Negative) Urine WBC (Auto) (0-5) /hpf Urine RBC (Auto) (0-4) /hpf U Hyaline Cast (Auto) (0-5) /lpf U Epithel Cells (Auto) (0-5) /lpf Urine Bacteria (Auto) (Negative) Granular Casts (0) /lpf Adenovirus (PCR) (NotDetected) B. pertussis DNA (PCR) (NotDetected) B.parapertussis DNA PCR (NotDetected) C. pneumoniae DNA (PCR) (NotDetected) Coronavirus OC43 (PCR) (NotDetected) Coronavirus HKU1 (PCR) (NotDetected) Coronavirus 229E (PCR) (NotDetected) SARS-CoV-2 (PCR) (NotDetected) Coronavirus NL63 (PCR) (NotDetected) Human Metapneumovir PCR (NotDetected) Influenza Type A (PCR) (NotDetected) Influenza Type B (PCR) (NotDetected) M. pneumoniae (PCR) (NotDetected) Parainfluenza 1 (PCR) (NotDetected) Parainfluenza 2 (PCR) (NotDetected) Parainfluenza 3 (PCR) (NotDetected) Parainfluenza 4 (PCR) (NotDetected) RSV (PCR) (NotDetected) Entero/Rhino (PCR) (NotDetected) Medications Administered Current Inpatient Medications Acetaminophen (Acetaminophen 325 Mg Tab) 650 mg PO Q4H PRN PRN Reason: Pain or Fever Stop: 03/19/23 23:50 Promethazine HCl 6.25 mg/ (Sodium Chloride) 50.25 mls @ 201 mls/hr IV Q6H PRN PRN Reason: Nausea And Vomiting Stop: 03/19/23 22:37 Lactated Ringer's (Lr) 1,000 mls @ 80 mls/hr IV .[id number] ONE Stop: 02/18/23 19:42 Last Admin: 02/18/23 08:19 Dose: 80 mls/hr Lorazepam (Lorazepam 0.5 Mg Tab) 0.5 mg PO TID PRN PRN Reason: Anxiety Stop: 03/19/23 22:37 Miscellaneous (Remove Nicoderm Patch) 1 each N/A DAILY@0859 [facility] Stop: 03/20/23 08:58 Last Admin: 02/18/23 08:19 Dose: 1 each Nicotine (Nicotine 21 Mg/24 Hr Tdsy) 21 mg TD QAM [facility] Stop: 03/20/23 08:59 Last Admin: 02/18/23 08:18 Dose: 21 mg Pantoprazole Sodium (Pantoprazole 40 Mg Tab) 40 mg PO QAM [facility] Stop: 03/20/23 08:59 Tiotropium [place] (Tiotropium [place] 5 Puff/90 Mcg Inh) 2 puffs INH QAM [facility] Stop: 03/20/23 09:44
--- NOTE | 2023-02-18 10:31 | Communication Note ---
Date of Service: February 18, 2023 The patient underwent upper endoscopy today, is dilated the esophagus to 60 [place] today and injected the lower esophageal sphincter with 100 units of Sammy tox. Recommendations Liquid diet for 48 hours then advance as tolerated Patient should follow-up with gastroenterology as an outpatient in 6 to 9 months or sooner if needed please call with any questions or concerns GI to sign off
--- NOTE | 2023-02-18 10:36 | GI REPORT ---
Patient Name: Harvinder Corey Procedure Date: 02/18/2023 10:02 AM Date of : 1965 Admit Type: Inpatient Age: 57 Gender: Male Attending MD: Raine Anderson DO, Procedure: Upper GI endoscopy Providers: Raine Anderson DO Referring MD: Kaiden Higuera Md Indications: Suspected achalasia, For botulinum toxin injection of achalasia Medicines: Monitored Anesthesia Care Complications: No immediate complications. Estimated blood loss: Minimal. Estimated Blood Loss: Estimated blood loss was minimal. Procedure: Pre-Anesthesia Assessment: - Prior to the procedure, a History and Physical was performed, and patient medications, allergies and sensitivities were reviewed. The patient's tolerance of previous anesthesia was reviewed. - The risks and benefits of the procedure and the sedation options and risks were discussed with the patient. All questions were answered and informed consent was obtained. - Patient identification and proposed procedure were verified prior to the procedure by the physician, the nurse and the feed inspection supervisor. The procedure was verified in the procedure room. - Pre-procedure physical examination revealed no contraindications to sedation. - ASA Grade Assessment: III - A patient with severe systemic disease. - After reviewing the risks and benefits, the patient was deemed in satisfactory condition to undergo the procedure. - The anesthesia plan was to use monitored anesthesia care (MAC). - Immediately prior to administration of medications, the patient was re-assessed for adequacy to receive sedatives. - The heart rate, respiratory rate, oxygen saturations, blood pressure, adequacy of pulmonary ventilation, and response to care were monitored throughout the procedure. - The physical status of the patient was re-assessed after the procedure. After obtaining informed consent, the endoscope was passed under direct vision. Throughout the procedure, the patient's blood pressure, pulse, and oxygen saturations were monitored continuously. The Endoscope was introduced through the mouth, and advanced to the third part of duodenum. The upper GI endoscopy was accomplished without difficulty. The patient tolerated the procedure well. Findings: The lumen of the esophagus was moderately dilated. Fluid was found in the lower third of the esophagus, this was aspirated via the endoscope. Abnormal motility was noted in the esophagus. There is a decrease in motility of the esophageal body. The distal esophagus/lower esophageal sphincter is open and easily passed with the endoscope. A guidewire was placed and the scope was withdrawn. Dilation was performed with a Savary dilator with no resistance at 60 Fr. The dilation site was examined following endoscope reinsertion and showed no change. The LES was successfully injected with 100 units botulinum toxin. The entire examined stomach was normal. The examined duodenum was normal. Impression: - Dilation in the entire esophagus. - Fluid in the lower third of the esophagus. - Abnormal esophageal motility, consistent with achalasia. Dilated to 60 Fr and Injected with botulinum toxin. - Normal stomach. - Normal examined duodenum. - No specimens collected. Recommendation: - Return patient to [facility] for ongoing care. - Full liquid diet today. - Repeat upper endoscopy PRN for retreatment. - Return to GI office in 6 months. Raine Anderson D.O. Raine Anderson, DO 02/18/2023 10:36:08 AM This report has been signed electronically. Note Initiated On: 02/18/2023 10:02 AM Number of Addenda: 0 I attest to the content of the Intraoperative Record and orders documented therein, exceptions below {[id number]}
[2023-02-18] MEDS ORDERED: PROPOFOL IV EMULSION 10 MG/ML 20 ML VIAL IV ONE (10:39)
[2023-02-18] MEDS ORDERED: LIDOCAINE 2% 2 ML VIAL/AMP(20MG/ML) INFIL ONE ×2 (10:39)
[2023-02-18] MEDS: UMECLIDINIUM BROMIDE 62.5MCG/BLISTER 7 PUFFS/INHALER INH SCH (11:29)
[2023-02-18] MEDS: PANTOprazole 40 MG TAB PO SCH (11:29)
--- NOTE | 2023-02-18 12:43 | Electrocardiogram Report ---
Test Reason : Blood Pressure : / mmHG Vent. Rate : 099 BPM Atrial Rate : 099 BPM P-R Int : 170 ms QRS Dur : 106 ms QT Int : 354 ms P-R-T Axes : 079 -41 065 degrees QTc Int : 454 ms Normal sinus rhythm Left axis deviation Voltage criteria for left ventricular hypertrophy Abnormal ECG When compared with ECG of 17-MAR-2022 12:24, QRS duration has increased slightly Otherwise no significant change Confirmed by Jose Francisco Diaz ([id number]) on 02/18/2023 12:42:43 PM Referred By: REFERRED SELF Confirmed By:Jose Francisco Diaz
--- NOTE | 2023-02-18 15:34 | Anesthesiology Progress Note ---
Date of Service February 18, 2023 Anesthesia Post Procedure Vital Signs Vital Signs: Temp Pulse Pulse Pulse Resp BP BP 02/18/23 15:23 60 02/18/23 15:23 36.6 C 55 L 18 108/68 02/18/23 11:31 36.6 C 62 20 144/79 H 02/18/23 11:04 58 L 18 110/64 02/18/23 10:49 58 L 18 101/62 02/18/23 10:34 64 16 114/51 L 02/18/23 10:01 36.1 C L 60 18 114/62 02/18/23 07:53 36.6 C 55 L 20 104/65 02/18/23 06:52 57 L 02/18/23 03:52 36.4 C L 63 18 118/75 02/18/23 01:00 63 18 134/82 02/18/23 01:00 02/17/23 23:52 60 02/17/23 22:00 65 18 133/69 02/17/23 21:12 61 02/17/23 20:00 58 L 18 122/83 02/17/23 18:28 78 18 111/91 02/17/23 17:42 02/17/23 17:21 93 H 02/17/23 16:52 36.0 C L 109 H 20 109/88 Pulse Ox Pulse Ox O2 Del Method O2 Del Method 02/18/23 15:23 02/18/23 15:23 100 Room Air 02/18/23 11:31 100 Room Air 02/18/23 11:04 99 Room Air 02/18/23 10:49 99 Room Air 02/18/23 10:34 98 Room Air 02/18/23 10:01 98 Room Air 02/18/23 07:53 100 Room Air 02/18/23 06:52 02/18/23 03:52 100 Room Air 02/18/23 01:00 99 Room Air 02/18/23 01:00 99 Room Air 02/17/23 23:52 02/17/23 22:00 97 Room Air 02/17/23 21:12 02/17/23 20:00 99 Room Air 02/17/23 18:28 98 Room Air 02/17/23 17:42 96 Room Air 02/17/23 17:21 02/17/23 16:52 99 Room Air Transfer of Care Handoff Completed per policy Notes Mental Status: alert / awake / arousable and participated in evaluation Patient Amnestic to Procedure: Yes Nausea / Vomiting: adequately controlled Pain: adequately controlled Airway Patency, RR, SpO2: stable & adequate BP & HR: stable & adequate Hydration State: stable & adequate Anesthetic Complications: no major complications apparent
[2023-02-19 06:41] LABS: Hemoglobin 13.1 g/dl (14.0-18.0); Mean Corpuscular Hemoglobin 29.2 pg (25.0-34.0); Mean Corpuscular Hgb Conc 34.5 g/dL (32.0-36.0); Mean Corpuscular Volume 84.6 fL (80.0-100.0); Mean Platelet Volume 10.6 fL (9.4-12.4); Platelet Count 310 K/uL (130-400); RDW Coefficient of Variation 13.7 % (11.5-14.5); RDW Standard Deviation 42.5 fL (36.4-46.3); Red Blood Count 4.49 M/uL (4.70-6.10); White Blood Count 9.61 K/ul (4.8-10.8)
[2023-02-19 07:14] LABS: Calcium 8.6 mg/dl (8.6-10.3); Magnesium 1.9 mg/dl (1.7-2.4)
[2023-02-19 07:20] LABS: BUN Creatinine Ratio 18.5 (10-20); Creatinine Clr Calc Pharmacy 73.9 ml/min; Est GFR (African American) 88.5 ml/min; Est GFR (Non-African American) 76.3 ml/min; Phosphorus 2.2 mg/dl (2.5-4.9)
[2023-02-19] MEDS ORDERED: POTASSIUM PHOS 3 MMOL/1 ML INFUSION IV STA (07:31)
[2023-02-19] MEDS ORDERED: POTASSIUM CHLORIDE CRTAB 20 MEQ TABCR PO STA (07:32)
[2023-02-19] MEDS ORDERED: POTASSIUM PHOSPHATE 15 MMOL in SODIUM CHLORIDE 0.9% 250 ML IV ONE (08:00)
[2023-02-19] MEDS: UMECLIDINIUM BROMIDE 62.5MCG/BLISTER 7 PUFFS/INHALER INH SCH (08:12)
[2023-02-19] MEDS: NICOTINE 21 MG/24 HR TDSY TD SCH (08:12)
[2023-02-19] MEDS: PANTOprazole 40 MG TAB PO SCH (08:12)
--- NOTE | 2023-02-19 18:16 | Hospitalist Progress Note ---
Date of Service February 19, 2023 Assessment & Plan (1) Hypokalemia: Plan: Hypokalemia, ARF, AGMA Secondary to decreased p.o. intake secondary to worsening achalasia Replace potassium, electrolytes as needed Monitor creatinine response to IVF -> Creatinine back to baseline at 1 Baseline UA obtained Syncope likely secondary to orthostasis secondary to clinical dehydration rule out arrhythmia, obstructive cardiac pathology. Medical telemetry Check orthostatic vitals TTE Re: Syncope - mild concentric LVH. LV wall motion is normal. LVEF 55%. Aortic valve sclerosis mild, without significant aortic valvular stenosis. There is an echodensity adjacent to the left atrium that is compatible with a prominent fluid-filled esophagus as described on the report of the CT of the abdomen and pelvis dated February 17, 2023. Achalasia, poor oral intake GI consulted re: worsening achalasia - Per GI - Pt has known history of achalasia and was previously seen by department follow-up. In the past we recommended a number of interventions to include a motility study, evaluation by surgery and perhaps even endoscopic therapy with a POEM. Unfortunately the patient has been noncompliant with these recommendations. The patient recalls that his symptoms did improve significantly with Botox injection last year thus we will do a repeat upper endoscopy today with Botox injection and probable esophageal dilation. We discussed the increased risk of perioperative complications given the patient's history of achalasia, these risks include bleeding infection perforation pain continued difficulty with swallowing, aspiration and the need for follow-up studies. 02/18/2023 The patient underwent upper endoscopy today, dilated the esophagus to 60 [place] today and injected the lower esophageal sphincter with 100 units of Botox. Recommendations Liquid diet for 48 hours then advance as tolerated Patient should follow-up with gastroenterology as an outpatient in 6 to 9 months or sooner if needed COPD, pulmonary status at baseline, patient ran out off Spiriva inhaler prescribed by PCP last year Ongoing tobacco abuse, COPD Resume home Spiriva Rx Nicotine patch Chronic anemia, hemoglobin currently within normal limits likely secondary to hemoconcentration, monitor H&H DVT prophylaxis. SCDs for now Full code Patient's contact - brother: Mr. Vicente Corey, number [phone]. Admission and Anticipated Discharge Date Admission Date: February 17, 2023 Subjective Pt seen in follow up of difficulty swallowing, achalasia, low electrolytes GI consulted - underwent dilatation of esophagus and botox inj. yesterday Currently sitting up in chair, in no acute distress. Still having difficulty with liquids but improved. Electrolytes still low. Cr back to baseline. No fevers chills chest pain shortness of breath. Review of Systems Review of Systems: All systems reviewed & are unremarkable except as noted in Subjective Physical Exam Physical Exam: GENERAL: WD/WN M in NAD HEENT: NC/AT, palpebral conjunctivae, mmm NECK : Supple, no tenderness CHEST : Decreased breath sounds, no tenderness HEART : RRR, no obvious murmurs ABDOMEN: Some distention, nontender EXTREMITIES : No LE swelling/tenderness, moves extremities NEUROLOGIC : awake, alert, answers appropriately. no facial asymmetry, moves extremities SKIN: Pallor, warm Results & Data Results & Data Vital Signs (Past 12 Hours) Vital Signs Temp Pulse Pulse Pulse Resp BP Pulse Ox 02/19/23 15:36 36.6 C 60 18 112/69 100 02/19/23 15:00 60 02/19/23 12:35 36.4 C L 63 16 104/62 99 02/19/23 07:46 36.6 C 67 16 102/62 99 02/19/23 07:31 46 L O2 Del Method 02/19/23 15:36 Room Air 02/19/23 15:00 02/19/23 12:35 Room Air 02/19/23 07:46 Room Air 02/19/23 07:31 Laboratory Results 02/19/23 Range/Units 05:32 WBC 9.61 (4.8-10.8) K/ul RBC 4.49 L (4.70-6.10) M/uL Hgb 13.1 L (14.0-18.0) g/dl Hct 38.0 L (42.0-52.0) % MCV 84.6 (80.0-100.0) fL MCH 29.2 (25.0-34.0) pg MCHC 34.5 (32.0-36.0) g/dL RDW Std Deviation 42.5 (36.4-46.3) fL RDW Coeff of Marcelo 13.7 (11.5-14.5) % Plt Count 310 (130-400) K/uL MPV 10.6 (9.4-12.4) fL Sodium 136 (136-145) mmol/L Potassium 3.0 L (3.5-5.1) mmol/L Chloride 104 (98-107) mmol/L Carbon Dioxide 27 (21-32) mmol/L Anion Gap 5 (3-11) BUN 20 (6-23) mg/dl Creatinine 1.08 D (0.6-1.4) mg/dl Est Cr Clr Drug Dosing 73.9 ml/min Est GFR ( Amer) 88.5 ml/min Est GFR (Non-Af Amer) 76.3 ml/min BUN/Creatinine Ratio 18.5 (10-20) Glucose 76 (70-99(Fasting)) mg/dl Calcium 8.6 (8.6-10.3) mg/dl Phosphorus 2.2 L (2.5-4.9) mg/dl Magnesium 1.9 (1.7-2.4) mg/dl Medications Administered Current Inpatient Medications Acetaminophen (Acetaminophen 325 Mg Tab) 650 mg PO Q4H PRN PRN Reason: Pain or Fever Stop: 03/19/23 23:50 Last Admin: 02/18/23 19:33 Dose: 650 mg Promethazine HCl 6.25 mg/ (Sodium Chloride) 50.25 mls @ 201 mls/hr IV Q6H PRN PRN Reason: Nausea And Vomiting Stop: 03/19/23 22:37 Lorazepam (Lorazepam 0.5 Mg Tab) 0.5 mg PO TID PRN PRN Reason: Anxiety Stop: 03/19/23 22:37 Miscellaneous (Remove Nicoderm Patch) 1 each N/A DAILY@0859 [facility] Stop: 03/20/23 08:58 Last Admin: 02/19/23 08:11 Dose: 1 each Nicotine (Nicotine 21 Mg/24 Hr Tdsy) 21 mg TD [facility] Stop: 03/20/23 08:59 Last Admin: 02/19/23 08:12 Dose: 21 mg Pantoprazole Sodium (Pantoprazole 40 Mg Tab) 40 mg PO [facility] Stop: 03/20/23 08:59 Last Admin: 02/19/23 08:12 Dose: 40 mg Umeclidinium [place] (Umeclidinium [place] 62.5mcg/Blister 7 Puffs/Inhaler) 1 puffs INH [facility]; Protocol Stop: 03/20/23 09:44 Last Admin: 02/19/23 08:12 Dose: 1 puffs
[2023-02-20 06:35] LABS: Hematocrit (blood only) 35.1 % (42.0-52.0); Hemoglobin 12.6 g/dl (14.0-18.0); Mean Corpuscular Hemoglobin 29.6 pg (25.0-34.0); Mean Corpuscular Hgb Conc 35.9 g/dL (32.0-36.0); Mean Corpuscular Volume 82.4 fL (80.0-100.0); Mean Platelet Volume 10.5 fL (9.4-12.4); Platelet Count 289 K/uL (130-400); RDW Coefficient of Variation 13.4 % (11.5-14.5); RDW Standard Deviation 40.1 fL (36.4-46.3); Red Blood Count 4.26 M/uL (4.70-6.10); White Blood Count 9.95 K/ul (4.8-10.8)
[2023-02-20 06:47] LABS: BUN Creatinine Ratio 13.1 (10-20); Calcium 8.3 mg/dl (8.6-10.3); Est GFR (African American) 113.4 ml/min; Est GFR (Non-African American) 97.9 ml/min; Magnesium 1.7 mg/dl (1.7-2.4); Phosphorus 2.5 mg/dl (2.5-4.9); Potassium 3.3 mmol/L (3.5-5.1)
[2023-02-20] MEDS: PANTOprazole 40 MG TAB PO SCH (09:13)
[2023-02-20] MEDS: NICOTINE 21 MG/24 HR TDSY TD SCH (09:13)
[2023-02-20] MEDS: UMECLIDINIUM BROMIDE 62.5MCG/BLISTER 7 PUFFS/INHALER INH SCH (09:14)
[2023-02-20] MEDS ORDERED: POTASSIUM CHLORIDE CRTAB 20 MEQ TABCR PO STA (09:48)
[2023-02-20] MEDS ORDERED: POTASSIUM CHLORIDE 20 MEQ/15 ML UDC PO STA (09:51)
[2023-02-20] MEDS: SODIUM CHLORIDE 0.9% 1,000 ML IV SCH (14:09)
--- NOTE | 2023-02-21 01:51 | Hospitalist Progress Note ---
Date of Service February 20, 2023 Assessment & Plan (1) Hypokalemia: Plan: Pt is a 57yoM with PMHx significant for COPD, achalasia, chronic anemia (baseline hemoglobin of 12), ongoing tobacco abuse admitted with syncopal episodes and achalasia. Achalasia, poor oral intake GI consulted re: worsening achalasia - Per GI - Pt has known history of achalasia and was previously seen by department follow-up. "In the past we recommended a number of interventions to include a motility study, evaluation by surgery and perhaps even endoscopic therapy with a POEM. Unfortunately the patient has been noncompliant with these recommendations. The patient recalls that his symptoms did improve significantly with Botox injection last year thus we will do a repeat upper endoscopy today with Botox injection and probable esophageal dilation. We discussed the increased risk of perioperative complications given the patient's history of achalasia, these risks include bleeding infection perforation pain continued difficulty with swallowing, aspiration and the need for follow-up studies." s/p EGD and botox on 02/18- pt notes improvement in his symptoms -GI dilated the esophagus and injected the lower esophageal sphincter with 100 units of Botox. Further Recommendations by GI: Liquid diet for 48 hours then advance as tolerated Patient should follow-up with gastroenterology as an outpatient in 6 to 9 months or sooner if needed Hypokalemia, ARF, AGMA Secondary to decreased p.o. intake secondary to worsening achalasia Replace potassium, electrolytes as needed Monitor creatinine response to IVF -> Creatinine back to baseline Baseline UA obtained Syncope likely secondary to orthostasis secondary to clinical dehydration rule out arrhythmia, obstructive cardiac pathology. Medical telemetry Check orthostatic vitals-positive TTE Re: Syncope - mild concentric LVH. LV wall motion is normal. LVEF 55%. Aortic valve sclerosis mild, without significant aortic valvular stenosis. There is an echodensity adjacent to the left atrium that is compatible with a prominent fluid-filled esophagus as described on the report of the CT of the abdomen and pelvis dated February 17, 2023. 02/20- BP noted to be on lower end, IV fluids for 2 bags ordered. COPD, pulmonary status at baseline, patient ran out of Spiriva inhaler prescribed by PCP last year Ongoing tobacco abuse, COPD Resume home Spiriva Rx Nicotine patch Chronic anemia, hemoglobin currently within normal limits likely secondary to hemoconcentration, monitor H&H DVT prophylaxis. SCDs for now Full code Patient's contact - brother: Mr. Vicente Corey, number [phone]. Admission and Anticipated Discharge Date Admission Date: February 17, 2023 Subjective Pt was seen while sitting at bedside in the AM of 02/20. States he had another episode of dizziness. States able to swallow pills even potassium pills. Otherwise states he has no concerns. Would like another night before going home. Review of Systems Review of Systems: All systems reviewed & are unremarkable except as noted in Subjective Physical Exam Physical Exam: General: Alert, oriented. No acute distress Skin: No noted rashes or bruises Psych: Appropriate mood and affect Neuro: No gross deficits HEENT: NC/AT Chest: Nontender to palpation. CV: RRR Resp: Breath sounds clear bilaterally, no increased effort of breathing. Abdomen: Soft Extremities: No edema in lower extremities bilaterally. Results & Data Results & Data Vital Signs (Past 12 Hours) Vital Signs Temp Pulse Pulse Resp BP Pulse Ox O2 Del Method 02/21/23 00:32 37.0 C 53 L 20 114/66 99 Room Air 02/20/23 22:58 59 L 02/20/23 20:27 36.9 C 68 20 106/67 99 Room Air 02/20/23 19:30 Room Air 02/20/23 15:42 97 H 02/20/23 15:08 36.5 C 57 L 18 93/55 L 100 Room Air
[2023-02-21] MEDS: SODIUM CHLORIDE 0.9% 1,000 ML IV SCH (02:33)
[2023-02-21 07:27] LABS: Hematocrit (blood only) 33.2 % (42.0-52.0); Hemoglobin 11.9 g/dl (14.0-18.0); Mean Corpuscular Hemoglobin 29.8 pg (25.0-34.0); Mean Corpuscular Hgb Conc 35.8 g/dL (32.0-36.0); Mean Corpuscular Volume 83.2 fL (80.0-100.0); Mean Platelet Volume 10.4 fL (9.4-12.4); Platelet Count 267 K/uL (130-400); RDW Coefficient of Variation 13.6 % (11.5-14.5); RDW Standard Deviation 41.2 fL (36.4-46.3); Red Blood Count 3.99 M/uL (4.70-6.10); White Blood Count 9.18 K/ul (4.8-10.8)
[2023-02-21 07:59] LABS: Albumin Globulin Ratio 1.4 (0.9-2); BUN Creatinine Ratio 6.2 (10-20); Bilirubin,Total 0.4 mg/dl (0.2-1.0); Creatinine Clr Calc Pharmacy 98.5 ml/min; Est GFR (African American) 115.1 ml/min; Est GFR (Non-African American) 99.4 ml/min; Globulin 2.1 gm/dl (2.5-4.0); Magnesium 1.4 mg/dl (1.7-2.4); Phosphorus 2.8 mg/dl (2.5-4.9); Potassium 3.7 mmol/L (3.5-5.1); Total Protein 5.1 gm/dl (6.0-8.3)
[2023-02-21 08:20] LABS: Calcium 8.1 mg/dl (8.6-10.3)
[2023-02-21 08:27] LABS: Lyme Ab IgG w/WB Rflx Negative (Negative); Lyme Ab IgM w/WB Rflx Negative (Negative)
[2023-02-21] MEDS: UMECLIDINIUM BROMIDE 62.5MCG/BLISTER 7 PUFFS/INHALER INH SCH (08:39)
[2023-02-21] MEDS: PANTOprazole 40 MG TAB PO SCH (08:39)
[2023-02-21] MEDS: NICOTINE 21 MG/24 HR TDSY TD SCH (08:39)
[2023-02-21] MEDS: MAGNESIUM CHLORIDE W/CALCIUM 64MG DELAYED REL TAB PO SCH ×2 (10:58→20:20)
[2023-02-21] MEDS: MIDODRINE HCL 2.5 MG TAB PO SCH ×2 (10:58→16:58)
[2023-02-21] MEDS: MAGNESIUM SULFATE / D5W 1 GM/100 ML BAG IV SCH ×3 (10:58→13:04)
--- NOTE | 2023-02-21 15:49 | Hospitalist Progress Note ---
Date of Service February 21, 2023 Assessment & Plan (1) Hypokalemia: Plan: Pt is a 57yoM with PMHx significant for COPD, achalasia, chronic anemia (baseline hemoglobin of 12), ongoing tobacco abuse admitted with syncopal episodes and achalasia. Achalasia, poor oral intake GI consulted re: worsening achalasia - Per GI - Pt has known history of achalasia and was previously seen by department follow-up. "In the past we recommended a number of interventions to include a motility study, evaluation by surgery and perhaps even endoscopic therapy with a POEM. Unfortunately the patient has been noncompliant with these recommendations. The patient recalls that his symptoms did improve significantly with Botox injection last year thus we will do a repeat upper endoscopy today with Botox injection and probable esophageal dilation. We discussed the increased risk of perioperative complications given the patient's history of achalasia, these risks include bleeding infection perforation pain continued difficulty with swallowing, aspiration and the need for follow-up studies." s/p EGD and botox on 02/18- pt notes improvement in his symptoms -GI dilated the esophagus and injected the lower esophageal sphincter with 100 units of Botox. Further Recommendations by GI: Liquid diet for 48 hours then advance as tolerated Patient should follow-up with gastroenterology as an outpatient in 6 to 9 months or sooner if needed Hypokalemia, ARF, AGMA Secondary to decreased p.o. intake secondary to worsening achalasia Replace potassium, electrolytes as needed Monitor creatinine response to IVF -> Creatinine back to baseline Baseline UA obtained Syncope likely secondary to orthostasis secondary to clinical dehydration rule out arrhythmia, obstructive cardiac pathology. Medical telemetry Check orthostatic vitals-positive TTE Re: Syncope - mild concentric LVH. LV wall motion is normal. LVEF 55%. Aortic valve sclerosis mild, without significant aortic valvular stenosis. There is an echodensity adjacent to the left atrium that is compatible with a prominent fluid-filled esophagus as described on the report of the CT of the abdomen and pelvis dated February 17, 2023. 02/20- BP noted to be on lower end, IV fluids for 2 bags ordered. 02/21- pt on midrodrine 2.5mg TID. Orthostats ordered and are improving compared to previous. Continue to monitor symptoms and BP overnight. COPD, pulmonary status at baseline, patient ran out of Spiriva inhaler prescribed by PCP last year Ongoing tobacco abuse, COPD Resume home Spiriva Rx Nicotine patch Chronic anemia, hemoglobin currently within normal limits likely secondary to hemoconcentration, monitor H&H DVT prophylaxis. SCDs for now Full code Patient's contact - brother: Mr. Vicente Corey, number [phone]. Admission and Anticipated Discharge Date Admission Date: February 17, 2023 Subjective Pt was seen with nursing at bedside, States no further episodes of dizziness. States he does not have a ride to go home. Review of Systems Review of Systems: All systems reviewed & are unremarkable except as noted in Subjective Physical Exam Physical Exam: General: Alert, oriented. No acute distress Skin: No noted rashes or bruises Psych: Appropriate mood and affect Neuro: No gross deficits HEENT: NC/AT Chest: Nontender to palpation. CV: RRR Resp: Breath sounds clear bilaterally, no increased effort of breathing. Abdomen: Soft Extremities: No edema in lower extremities bilaterally. Results & Data Results & Data Vital Signs (Past 12 Hours) Vital Signs Temp Pulse Pulse Resp BP Pulse Ox O2 Del Method 02/21/23 11:10 36.5 C 55 L 18 117/70 100 Room Air 02/21/23 10:29 48 L 02/21/23 07:38 Room Air 02/21/23 07:26 36.7 C 63 18 107/56 L 100 Room Air 02/21/23 04:30 36.8 C 53 L 20 113/69 98 Room Air
[2023-02-22 06:45] LABS: Hematocrit (blood only) 34.2 % (42.0-52.0); Hemoglobin 11.8 g/dl (14.0-18.0); Mean Corpuscular Hemoglobin 29.6 pg (25.0-34.0); Mean Corpuscular Hgb Conc 34.5 g/dL (32.0-36.0); Mean Corpuscular Volume 85.9 fL (80.0-100.0); Mean Platelet Volume 10.6 fL (9.4-12.4); Platelet Count 285 K/uL (130-400); RDW Coefficient of Variation 13.7 % (11.5-14.5); RDW Standard Deviation 42.9 fL (36.4-46.3); Red Blood Count 3.98 M/uL (4.70-6.10); White Blood Count 10.95 K/ul (4.8-10.8)
[2023-02-22 07:07] LABS: Albumin Globulin Ratio 1.4 (0.9-2); Albumin Level 2.9 gm/dl (3.4-5.0); BUN Creatinine Ratio 4.2 (10-20); Bilirubin,Total 0.4 mg/dl (0.2-1.0); Calcium 7.9 mg/dl (8.6-10.3); Est GFR (African American) 102.6 ml/min; Est GFR (Non-African American) 88.5 ml/min; Globulin 2.1 gm/dl (2.5-4.0); Magnesium 1.7 mg/dl (1.7-2.4); Phosphorus 2.8 mg/dl (2.5-4.9); Potassium 3.7 mmol/L (3.5-5.1)
[2023-02-22] MEDS: PANTOprazole 40 MG TAB PO SCH (08:58)
[2023-02-22] MEDS: MAGNESIUM CHLORIDE W/CALCIUM 64MG DELAYED REL TAB PO SCH (08:58)
[2023-02-22] MEDS: NICOTINE 21 MG/24 HR TDSY TD SCH (08:59)
[2023-02-22] MEDS: MIDODRINE HCL 2.5 MG TAB PO SCH ×2 (08:59→12:56)
[2023-02-22] MEDS: UMECLIDINIUM BROMIDE 62.5MCG/BLISTER 7 PUFFS/INHALER INH SCH (08:59)
--- NOTE | 2023-02-22 12:42 | Discharge Summary ---
Discharge Summary Date of Service February 22, 2023 Notes For Next Care Provider Please continue to monitor BP after discharge- pt started on midodrine 2.5 mg TID Patient should follow-up with gastroenterology as an outpatient in 6 to 9 months or sooner if needed Medication Changes From Visit Midodrine 2.5mg TID Pantoprazole 40mg daily Nicotine patch Admission HPI Per Admitting Provider History obtained from patient and records. Medical history significant for COPD, achalasia, chronic anemia (baseline hemoglobin of 12), ongoing tobacco abuse. Last confinement March 2022 for aspiration pneumonia and achalasia status post EGD status post dilatation and Botox injection. Outpatient high resolution esophageal motility study last April 2022 consistent with type I achalasia. Patient unable to follow-up with GI to discuss results and subsequent plan due to transport and financial constraints. Patient could not be reached by office as per outpatient documentation. A few months following following March 2022 confinement, patient noted swallowing issues again more with solids. Patient having trouble keeping solids down. Worsening symptoms over the last couple of months with both solids and liquids. Shortness of breath from weakness. No actual abdominal pain. Denies constipation/diarrhea symptoms. 20 pound weight loss in the last few months as per patient. Episodic headache symptoms. Patient had a syncopal event today after getting up from bed. Patient brought to the ER for evaluation. Medical History as above March 2022 EGD suspicious for achalasia status postdilatation and Botox injection. Normal stomach and duodenum Surgical History : None Family History : Heart disease Personal/Social history : Half pack daily, occasional EtOH intake, prior [employer] employee, currently unemployed, lives with brother Admission Exam Per Admitting Provider GENERAL: Anxious, no respiratory distress SKIN: Pallor,, warm HEENT: Pale palpebral conjunctivae, no ptosis, dry buccal mucosa NECK : Supple, no tenderness CHEST : Decreased breath sounds, no tenderness HEART : Bradycardic, no obvious murmurs ABDOMEN: Some distention, nontender EXTREMITIES : No LE swelling/tenderness, no other conspicuous deformities noted NEUROLOGIC : Coherent, no facial asymmetry, no other gross focality Principal Dx & Hospital Course #1 = Principal Diagnosis (1) Hypokalemia: Pt is a 57yoM with PMHx significant for COPD, achalasia, chronic anemia (baseline hemoglobin of 12), ongoing tobacco abuse admitted with syncopal episodes and achalasia. Achalasia, poor oral intake GI consulted re: worsening achalasia - Per GI - Pt has known history of achalasia and was previously seen by department follow-up. "In the past we recommended a number of interventions to include a motility study, evaluation by surgery and perhaps even endoscopic therapy with a POEM. Unfortunately the patient has been noncompliant with these recommendations. The patient recalls that his symptoms did improve significantly with Botox injection last year thus we will do a repeat upper endoscopy today with Botox injection and probable esophageal dilation. We discussed the increased risk of perioperative complications given the patient's history of achalasia, these risks include bleeding infection perforation pain continued difficulty with swallowing, aspiration and the need for follow-up studies." s/p EGD and botox on 02/18- pt notes improvement in his symptoms -GI dilated the esophagus and injected the lower esophageal sphincter with 100 units of Botox. Further Recommendations by GI: Patient should follow-up with gastroenterology as an outpatient in 6 to 9 months or sooner if needed Discharged on pantoprazole 40mg daily Hypokalemia, ARF, AGMA Secondary to decreased p.o. intake secondary to worsening achalasia Replace potassium, electrolytes as needed Monitor creatinine response to IVF -> Creatinine back to baseline Baseline UA obtained Syncope likely secondary to orthostasis secondary to clinical dehydration rule out arrhythmia, obstructive cardiac pathology. Medical telemetry Check orthostatic vitals-positive TTE Re: Syncope - mild concentric LVH. LV wall motion is normal. LVEF 55%. Aortic valve sclerosis mild, without significant aortic valvular stenosis. There is an echodensity adjacent to the left atrium that is compatible with a prominent fluid-filled esophagus as described on the report of the CT of the abdomen and pelvis dated February 17, 2023. BP noted to be trending on lower end even with repeated IV fluids Pt started on midrodrine 2.5mg TID. Orthostats ordered and are improving compared to previous. PCP follow up for continued monitoring of symptoms and BP. COPD, pulmonary status at baseline, patient ran out of Spiriva inhaler prescribed by PCP last year Ongoing tobacco abuse, COPD Resume home Spiriva Rx Nicotine patch at discharge Chronic anemia, hemoglobin currently within normal limits, monitor H&H Discharge Exam General: Alert, oriented. No acute distress Skin: No noted rashes or bruises Psych: Appropriate mood and affect Neuro: No gross deficits HEENT: NC/AT Chest: Nontender to palpation. CV: RRR Resp: Breath sounds clear bilaterally, no increased effort of breathing. Abdomen: Soft Extremities: No edema in lower extremities bilaterally. Updated Medication List Medication Instructions Recorded Confirmed Type midodrine 2.5 mg tablet 2.5 mg PO TID@0800,1200,1700 #90 02/22/23 Rx tabs nicotine 21 mg/24 hr daily 21 mg transdermal QAM #14 ea 02/22/23 Rx transdermal patch (Nicoderm CQ) pantoprazole 40 mg tablet,delayed 40 mg PO QAM #30 tabs 02/22/23 Rx release Hospital Stay Data Consultations 02/17/23 19:24 ED Decision to Admit Stat 02/17/23 23:51 Consult Gastroenterology Routine Procedures Performed Operation Date: 02/18/23 16:30 Actual Procedures p EGD with Botox, Esophageal Dilation - Raine Anderson, Diagnostic Imagining Performed 02/17/23 18:17 CT abd pelvis wo con Stat 02/17/23 22:51 CT head/brain wo con Stat Chest X-Ray 02/17/23 17:18 .XR chest 1V not portable CLINICAL HISTORY: Chest pain, nonspecific. COMPARISON STUDY: Chest radiograph and chest CT March 17, 2022. FINDINGS: Lung volumes are normal. No consolidation is identified. There is no pneumothorax or pleural effusion. Cardiac size is normal. Mediastinal contours are normal. There is no evidence for pulmonary edema. IMPRESSION: No acute cardiopulmonary findings. ACT 112: Negative or not required by law. Electronically signed by: Samson Majano M.D. 02/17/2023 6:23 PM Abdomen/Pelvis CT 02/17/23 18:17 CT OF THE ABDOMEN AND PELVIS WITHOUT CONTRAST CLINICAL HISTORY: vomiting, weight loss, darlene COMPARISON STUDY: CT of the abdomen and pelvis March 17, 2022. TECHNIQUE: Axial images of the abdomen and pelvis were obtained without IV contrast. Images were reviewed in the axial, sagittal, and coronal planes. Automated exposure control was utilized for the study. A dose lowering technique was utilized adhering to the principles of ALARA. FINDINGS: The distal esophagus is dilated and fluid-filled. The appearance is similar to CTs of October 06, 2021 and March 17, 2022. This was depicted on barium swallow January 28, 2022 and is likely related to achalasia. Hepatic steatosis is noted. There are calcified granulomas within the spleen. Adrenal glands, kidneys and pancreas are unremarkable. There is no hydronephrosis. No biliary or pancreatic ductal dilatation is present. No evidence for a bowel obstruction. No renal or ureteral calculi are present. There is no hydronephrosis. Small amount of layering calcifications within the bladder are present. Prostate is mildly enlarged. There is no lymphadenopathy. No ascites. No fluid collections. Appendix is normal. No fracture or suspicious osseous. IMPRESSION: 1. No acute process within the abdomen or pelvis on unenhanced exam. 2. No bowel obstruction. 3. No renal or ureteral calculi. No hydronephrosis. Minimal layering calcifications/small calculi within the bladder. Enlarged prostate. 4. Hepatic steatosis. 5. Dilated, fluid-filled distal esophagus, as shown on prior exams. This is likely due to achalasia. Although less likely, an underlying mucosal lesion cannot be excluded by CT. ACT 112: Negative or not required by law. Electronically signed by: Samson Majano M.D. 02/17/2023 7:[address] 02/17/23 22:51 Exam(s): CT HEAD Without Contrast EXAM: CT Head Without Intravenous Contrast CLINICAL HISTORY: Reason for exam: eugene. TECHNIQUE: Axial computed tomography images of the head/brain without intravenous contrast. CTDI is 37.51 mGy and DLP is 938 mGy-cm. Automated exposure control was utilized for the study. A dose lowering technique was utilized adhering to the principles of ALARA. COMPARISON: No relevant prior studies available. FINDINGS: No acute intracranial hemorrhage. No midline shift or mass effect. The territorial brown-white matter differentiation is maintained throughout. Age-related cerebral volume loss. Periventricular and subcortical white matter hypoattenuation, consistent with chronic microangiopathy. The visualized orbits appear grossly unremarkable. The calvarium is intact. The visualized paranasal sinuses and mastoid air cells are grossly clear. IMPRESSION: No acute intracranial hemorrhage, midline shift, or mass effect. Electronically signed by: Louis Francisco MD 02/17/23 23:46 PM Discharge Instructions Given to Patient (Per Discharging Provider) We are discharging you home with pantoprazole 40mg daily and midodrine 2.5mg three times a day to help your blood pressure. Please keep close follow up with your primary care provider and gastroenterology after discharge. Gastroenterology would like to follow up with you in 6 months. Please do not hesitate to come back to the emergency room if your symptoms worsen or return. It was a pleasure taking care of you while you were here. Total Time Total Time Spent Total Time Spent (In Minutes): > 30 minutes
== END 2023-02-22 13:37 | disposition home or self-care (01) | DRG 392 ==
LOC: ED 16:46 → SUATTDRO 22:36 → EDINP 22:36 → 2N 23:52
DX: J44.9 Chronic obstructive pulmonary disease, unspecified; F17.210 Nicotine dependence, cigarettes, uncomplicated; K22.0 Achalasia of cardia; D64.9 Anemia, unspecified; Z82.49 Family history of ischemic heart disease and other diseases of the circulatory system; E86.0 Dehydration; N17.9 Acute kidney failure, unspecified; R63.4 Abnormal weight loss; R11.10 Vomiting, unspecified; Z83.3 Family history of diabetes mellitus; E87.6 Hypokalemia; I95.1 Orthostatic hypotension